=== PATIENT | female | born 1985 | race Caucasian/White ===

== ENCOUNTER 2020-12-16 18:36 | Emergency (ER) | payer MEDICAID, SELFPAY ==
[2020-12-16 19:54] VITALS: BP 138/83; PULSE 75; RESP 19; TEMP 37.3; O2SAT 99; BMI 40.3
--- NOTE | 2020-12-16 20:04 | ED.GENADULT ---
HPI - General Adult General Chief complaint: General Medical Stated complaint: Covid Symptoms Source: patient Mode of arrival: ambulatory Limitations: no limitations History of Present Illness HPI narrative: Patient presents to ED for COVID like symptoms. Patient states runny nose and cough. Patient denies any chest pain or shortness of breath. Patient denies any swelling of lower extremities, calf pain, coughing up blood, fever, or chills. Related Data Previous Rx's Medication Instructions Recorded benzonatate [Tessalon Perles] 100 mg PO TID PRN #15 cap 12/16/20 Allergies Allergy/AdvReac Type Severity Reaction Status Date / Time No Known Allergies Allergy Mild UNKNOWN Unverified 08/16/20 17:18 Review of Systems Review of Systems: Yes all other systems are reviewed and are negative Constitutional: Constitutional: Reports as per HPI and Reports no additional constitutional complaints Eyes: Eyes: Reports as per HPI and Reports no additional eye complaints ENT: Reports system reviewed and no additional complaints, except as documented and Reports as per HPI Cardiovascular: Cardiovascular: Reports as per HPI, Reports no additional cardiovascular complaints, Denies dyspnea and Denies dyspnea on exertion Respiratory: Respiratory: Reports as per HPI, Reports no additional respiratory complaints, Denies chest congestion, Reports cough, Denies pain on inspiration, Denies pain with cough, Denies dyspnea and Denies dyspnea on exertion Gastrointestinal: Gastrointestinal: Reports as per HPI and Reports no additional gastrointestinal complaints Genitourinary: Genitourinary: Reports no additional female genitourinary complaints and Reports as per HPI Musculoskeletal: Musculoskeletal: Reports no additional musculoskeletal complaints and Reports as per HPI Neurologic: Reports system reviewed and no additional complaints, except as documented and Reports as per HPI Psychiatric: Psychiatric: Reports no additional psychiatric complaints and Reports as per HPI [facility] Social History Social History Alcohol intake: never Smoked in Last 30 Days: No Use of substances other than those prescribed or required for medical reasons: No Advance Directives: No Advance Directives Information Provided: No Physical Exam Vital Signs: Vital Signs: Last Vital Signs Temp 99.1 F 12/16/20 19:54 Pulse 75 12/16/20 19:54 Resp 19 12/16/20 19:54 BP 138/83 12/16/20 19:54 Pulse Ox 99 12/16/20 19:54 Body Mass Index 40.3 Const: General: cooperative, healthy appearing, comfortable, no acute distress, well developed, alert and awake; No Physically active Orientation/consciousness: patient oriented x3 HENMT: Head: Yes normal to inspection, Yes No palpable skull fracture present, Yes normocephalic and Yes atraumatic Eyes: General: appearance normal, both eyes and all related structures Neck: Neck: Yes normal visual inspection and Yes full ROM Chest: Chest palpation & inspection: normal inspection of the chest and normal palpation of entire chest wall Resp: Effort & Inspection: normal respiratory effort and able to speak in complete sentences Auscultation: clear to auscultation bilaterally Cardio: Jugular venous distension: no JVD Heart sounds: S1 normal heart sound present and S2 normal heart sound present GI: Inspection: Yes normal to inspection and No abdominal wall ecchymosis Palpation (GI): Soft to palpation, not firm, nontender, no guarding and not rigid : General: No CVA tenderness and Yes no CVA tenderness Back/Spine/Pelvis: Back: no CVA tenderness, No CVA tenderness and No back tenderness Skin: General skin exam: no rashes or lesions noted and elasticity normal Neuro: Other: Negative for any swelling or pitting edema. General: patient oriented x3 and CN's II-XI intact bilaterally Cranial nerves: Yes CN's II-XII intact bilaterally Extrem: General: Yes normal to inspection and Yes full ROM Course Course Course Narrative: Patient will be swabbed for COVID-19 virus. Reevaluation(s) Reevaluation #1: Patient was swabbed for the COVID-19 virus. Patient does not want to wait for results and rather be called over the phone for results. Patient is not in any respiratory distress. Time: 20:41 Reevaluation #2: Patient was called and informed her COVID test came back positive. Patient also instructed on quarantine for the next 14 days and return to the ED if she has chest pain or shortness of breath. Time: 22:53 Medical Decision Making Lab Data Labs: Lab Results 12/16/20 Range/Units 20:38 Coronavirus (PCR) POSITIVE A (Negative) Influenza Type A (PCR) NEGATIVE (Negative) Influenza Type B (PCR) NEGATIVE (Negative) RSV RNA Qual (PCR) NEGATIVE (Negative) Discharge Plan Discharge Clinical Impression: Upper respiratory infection, Acute viral syndrome, COVID-19 Patient Disposition: Home, Self-Care Instructions: Upper Respiratory Infection (ED), Viral Syndrome (ED), COVID-19 (Coronavirus Disease 2019) (ED) Additional Instructions: Return to the ED immediately for any chest pain, shortness of breath, weakness, intractable fever, or any other concerning symptoms. COVID testing is pending. If symptoms worsens recommend self isolation/ ( quarantine). Please follow up with PCP. Prescriptions: New benzonatate [Tessalon Perles] 100 mg capsule 100 mg PO TID PRN (Reason: cough) Qty: 15 RF: 0 Interventions: ED Discharge Assessment Last Done: 12/16/20 20:54 Discharge Date/Time: 12/16/20 21:14
--- NOTE | 2020-12-16 20:39 | PC.NURSE ---
covid swab performed
[2020-12-16 21:29] LABS: Influenza A PCR NEGATIVE (Negative); Influenza B PCR NEGATIVE (Negative); Resp Syncy Virus RNA Qual PCR NEGATIVE (Negative); SARS COV2 PCR INHOUSE POSITIVE (Negative)
== END 2020-12-16 21:14 | disposition home or self-care (01) ==
PROVIDERS: Physician Assistant; Emergency Provider Emergency Medicine
DX: U07.1 COVID-19 (principal); J06.9 Acute upper respiratory infection, unspecified; R05 Cough; Z79.899 Other long term (current) drug therapy
CPT/HCPCS: 0241U; 36415; 99283; 99284

== ENCOUNTER 2021-03-11 11:39 | Outpatient (REF) | payer MEDICAID, SELFPAY ==
--- NOTE | ~2021-03-11 | XR_ITS ---
EXAMINATION: XR HAND/WRIST, RIGHT CLINICAL INFORMATION: Pain. COMPARISON: None TECHNIQUE: AP, oblique, and lateral views of the right hand and wrist as well as a scaphoid view of the right wrist. FINDINGS: No fracture or dislocation. Normal carpal alignment. No joint space narrowing or marginal osteophytes. No osseous erosion. No abnormal soft tissue calcification. XR/XR hand wrist RT IMPRESSION: Unremarkable examination.
== END 2021-03-11 11:40 | disposition home or self-care (01) ==
LOC: HO.XRAY 11:39
PROVIDERS: PCP Registered Nurse; Visit Provider Registered Nurse
DX: M25.531 Pain in right wrist (principal); M79.641 Pain in right hand
CPT/HCPCS: 73110; 73130

== ENCOUNTER 2021-10-02 09:27 | Outpatient (REF) | payer MEDICAID, SELFPAY ==
--- NOTE | 2021-10-02 10:00 | EMG_ITS ---
This is a 36-year-old woman with the right hand pain and numbness. PHYSICAL EXAMINATION: On examination, she is alert and oriented with normal intellectual functions. Cranial nerves II through XII are normal. No Tinel or Phalen sign. IMPRESSION: Rule out carpal tunnel syndrome. Nerve conduction EMG study: Mild to moderate carpal tunnel syndrome on the right. Normal EMG of the right C7-T1 innervated muscles. MD NNEKA Chambers/MODESTA / [id number]
== END 2021-10-02 09:28 | disposition home or self-care (01) ==
LOC: HO.NEURO 09:27
PROVIDERS: Visit Provider Registered Nurse
DX: M79.641 Pain in right hand (principal); M79.644 Pain in right finger(s)
CPT/HCPCS: 95885; 95910

== ENCOUNTER 2022-01-16 13:35 | Outpatient (REF) | payer MEDICAID, SELFPAY ==
--- NOTE | ~2022-01-16 | US_ITS ---
EXAMINATION: ULTRASOUND EXTREMITY/SOFT TISSUE NONVASCULAR LIMITED CLINICAL INFORMATION: Forehead swelling or lump COMPARISON: None TECHNIQUE: Grayscale and color imaging of the soft tissues over the forehead using a linear transducer FINDINGS: No soft tissue abnormality is seen. There is slight bony protuberance or undulated contour of the bone in this region that may account for palpable abnormality. US/US extremity nonvascular merchant IMPRESSION: No soft tissue abnormality seen by ultrasound. Palpable abnormality may correspond to bony protuberance or undulating contour of the skull.
== END 2022-01-16 13:36 | disposition home or self-care (01) ==
LOC: HO.US 13:35
PROVIDERS: Visit Provider Registered Nurse
DX: R22.0 Localized swelling, mass and lump, head (principal)
CPT/HCPCS: 76882

== ENCOUNTER 2022-02-11 14:16 | Emergency (ER) | payer MEDICAID, SELFPAY ==
--- NOTE | 2022-02-11 | ECG_ITS ---
Test Reason : CP Blood Pressure : / mmHG Vent. Rate : 070 BPM Atrial Rate : 070 BPM P-R Int : 156 ms QRS Dur : 096 ms QT Int : 380 ms P-R-T Axes : 043 039 014 degrees QTc Int : 410 ms Normal sinus rhythm Normal ECG When compared with ECG of 16-FEB-2017 16:59, No significant change was found Referred By: Generic ED Physician Electronically Signed By:ZOEY MILLER
--- NOTE | ~2022-02-11 | XR_ITS ---
EXAMINATION: XR CHEST CLINICAL INFORMATION: Chest pain COMPARISON: Previous chest x-ray most recent January 2017 TECHNIQUE: Frontal view of the chest was obtained. FINDINGS: No significant abnormality is noted involving the heart, lungs, mediastinum, bony thorax or soft tissues. XR/XR chest 1V IMPRESSION: Unremarkable examination.
[2022-02-11 14:45] VITALS: BP 152/94; PULSE 74; RESP 20; TEMP 36.5; O2SAT 100; BMI 40.3
[2022-02-11 15:01] LABS: MANUAL DIFF FLAG NO
[2022-02-11 15:02] LABS: Basophils Percent Auto 0.4 % (0-2); Eosinophils Absolute Auto 0.1 X10*3/uL (0.0-0.4); Eosinophils Percent Auto 1.1 % (0-4); Hematocrit 35.9 % (37.0-47.0); Imm Gran Abs Auto 0.04 X10*3/uL (0.00-0.03); Imm Gran Pct Auto 0.4 % (0.0-0.4); Lymphocytes Absolute Auto 3.1 X10*3/uL (1.2-4.9); Lymphocytes Percent Auto 31.2 % (20-40); Mean Corpuscular HGB Conc 30.6 g/dl (31.0-35.0); Mean Corpuscular Hemoglobin 26.1 pg (27.0-33.0); Mean Corpuscular Volume 85.1 fL (80.0-98.0); Mean Platelet Volume 10.5 fL (9.4-12.3); Monocytes Absolute Auto 0.7 X10*3/uL (0.1-1.2); Monocytes Percent Auto 6.9 % (2-11); Platelet Count 192 X10*3/uL (160-400); Red Blood Count 4.22 X10*6/uL (4.20-5.50); Red Cell Distribution Width 13.2 % (11.0-16.0)
[2022-02-11 15:17] LABS: Anion Gap 12 (12-20); Blood Urea Nitrogen 13 mg/dL (9-16); Calcium 9.1 mg/dL (8.4-10.2); Carbon Dioxide 26 mmol/L (22-29); Chloride 105 mmol/L (96-108); Estimated Glomerular Filt Rate > 60; Glucose Random 93 mg/dL (60-115); Potassium 4.1 mmol/L (3.3-5.1); Sodium 139 mmol/L (135-145)
--- NOTE | 2022-02-11 15:52 | ED_ITS ---
HPI - Chest Pain General Chief Complaint: Chest Pain Stated Complaint: ear pain/chest pain Time Seen by Provider: 02/11/22 15:31 Source: patient Mode of arrival: ambulatory Limitations: no limitations History of Present Illness HPI narrative: 36-year-old patient presents to ED for bilateral ear pain, cough, Stuffy nose, sore throat and slight chest discomfort for 4 days. . Patient denies any shortness of breath. patient denies any abdominal pain leg swelling, calf pain, coughing up blood, chest pain on inspiration, recent surgery, recent trauma or any control use. Patient states her son also has stuffy nose, and sore throat Related Data Previous Rx's Medication Instructions Recorded benzonatate 100 mg capsule 100 mg PO TID PRN #15 cap 12/16/20 (Teslon Gordon) Allergies Allergy/AdvReac Type Severity Reaction Status Date / Time No Known Allergies Allergy Mild UNKNOWN Unverified 08/16/20 17:18 Review of Systems Review of Systems: stuffy nose, slight cough, mild chest discomfort, bilateral ear pain Yes all other systems are reviewed and are negative [facility] Past Medical History Medical History (Updated 02/11/22 @ 17:37 by LUIS Gavin) Hypertension Social History Social History Alcohol intake: never Advance Directives: No Advance Directives Information Provided: No Patient : No Physical Exam Vital Signs: Vital Signs: Last Vital Signs Temp 97.6 F 02/11/22 17:56 Pulse 62 02/11/22 17:56 Resp 16 02/11/22 17:56 BP 146/89 H 02/11/22 17:56 Pulse Ox 97 02/11/22 17:56 BMI result Body Mass Index 40.3 Const: General: cooperative, healthy appearing, comfortable, no acute distress, well developed, alert, awake, Physically active and acute distress Orientation/consciousness: patient oriented x3 HENMT: Head: Yes normal to inspection, Yes No palpable skull fracture present, Yes normocephalic, Yes atraumatic and No abrasion Ears: hearing grossly normal bilaterally, external ears normal, TM's normal bilaterally, EAC's normal, mastoids normal and no periauricular adenopathy General nose exam: Normal external nose present and Normal nares present Throat: Yes posterior oropharynx normal, Yes tonsils normal and Yes uvula midline Eyes: General: appearance normal, both eyes and all related structures Neck: Neck: Yes normal visual inspection, Yes full ROM, Yes no lymphadenopathy, Yes no meningeal signs, Yes trachea midline, Yes supple, No anterior neck swelling and No tender Chest: Chest palpation & inspection: normal inspection of the chest and normal palpation of entire chest wall Resp: Effort & Inspection: normal respiratory effort and able to speak in complete sentences Auscultation: clear to auscultation bilaterally Cardio: Jugular venous distension: no JVD Heart sounds: S1 normal heart sound present and S2 normal heart sound present GI: Inspection: Yes normal to inspection and No abdominal wall ecchymosis Palpation (GI): Soft to palpation, not firm, nontender, no guarding and not rigid : General: No CVA tenderness and Yes no CVA tenderness Back/Spine/Pelvis: Back: no CVA tenderness, No CVA tenderness and No back tenderness Skin: General skin exam: no rashes or lesions noted and elasticity normal Neuro: General: patient oriented x3, gait normal, tone normal, moves all extremities and no meningeal signs Cranial nerves: Yes CN's II-XII intact bilaterally Extrem: Other: Lower extremities negative for swelling, pitting edema, or calf tenderness. General: Yes normal to inspection and Yes full ROM Psych: Appearance: grossly normal, well kempt and not disheveled Course Course Course Narrative: patient had cardiac evaluation which included troponin and EKG. COVID and influenza and strep test ordered. Reevaluation(s) Reevaluation #1: EKG negative STEMI. Troponin negative. Chest x-ray normal negative for pneumonia. SARs, COVID, influenza, strep came back negative. Patient is well- appearing. 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 Time: 18:27 MDM - Chest Pain MDM Narrative Medical decision making narrative: URI. Viral Syndrome Lab Data Result diagrams: 02/11/22 14:55 02/11/22 14:55 Labs: Lab Results 02/11/22 02/11/22 02/11/22 Range/Units 14:55 14:55 15:36 WBC 10.0 (4.8-10.8) X10*3/uL RBC 4.22 (4.20-5.50) X10*6/uL Hgb 11.0 L (12.0-16.0) g/dl Hct 35.9 L (37.0-47.0) % MCV 85.1 (80.0-98.0) fL MCH 26.1 L (27.0-33.0) pg MCHC 30.6 L (31.0-35.0) g/dl RDW 13.2 (11.0-16.0) % Plt Count 192 (160-400) X10*3/uL MPV 10.5 (9.4-12.3) fL Immature Gran % (Auto) 0.4 (0.0-0.4) % Neut % (Auto) 60.0 (45-73) % Lymph % (Auto) 31.2 (20-40) % Jackson % (Auto) 6.9 (2-11) % Eos % (Auto) 1.1 (0-4) % Baso % (Auto) 0.4 (0-2) % Lymph # (Auto) 3.1 (1.2-4.9) X10*3/uL Jackson # (Auto) 0.7 (0.1-1.2) X10*3/uL Eos # (Auto) 0.1 (0.0-0.4) X10*3/uL Baso # (Auto) 0.0 (0.0-0.2) X10*3/uL Abs Immat Gran (auto) 0.04 H (0.00-0.03) X10*3/uL Absolute Neuts (auto) 6.0 (2.0-8.3) x10*3/uL Absolute Nucleated RBC 0.000 (0.0-0.012) X10*3/uL Nucleated RBC % (auto) 0.0 (0.0-0.2) /100WBC Sodium 139 (135-145) mmol/L Potassium 4.1 (3.3-5.1) mmol/L Chloride 105 (96-108) mmol/L Carbon Dioxide 26 (22-29) mmol/L Anion Gap 12 (12-20) BUN 13 (9-16) mg/dL Creatinine 0.77 (0.5-1.4) mg/dL Estim Creat Clear Calc 129.0 Estimated GFR > 60 Random Glucose 93 (60-115) mg/dL Calcium 9.1 (8.4-10.2) mg/dL Troponin I High Sens < 3.5 (<3.5-17.0) ng/L COVID-19 (EMILY) (Negative) COVID-19 Clin Com Influenza Type A (EVA) (Negative) Influenza Type B (EVA) (Negative) Influenza A & B Note S. pyogenes GrpA EVA (Negative) 02/11/22 02/11/22 02/11/22 Range/Units 15:36 15:36 15:49 WBC (4.8-10.8) X10*3/uL RBC (4.20-5.50) X10*6/uL Hgb (12.0-16.0) g/dl Hct (37.0-47.0) % MCV (80.0-98.0) fL MCH (27.0-33.0) pg MCHC (31.0-35.0) g/dl RDW (11.0-16.0) % Plt Count (160-400) X10*3/uL MPV (9.4-12.3) fL Immature Gran % (Auto) (0.0-0.4) % Neut % (Auto) (45-73) % Lymph % (Auto) (20-40) % Jackson % (Auto) (2-11) % Eos % (Auto) (0-4) % Baso % (Auto) (0-2) % Lymph # (Auto) (1.2-4.9) X10*3/uL Jackson # (Auto) (0.1-1.2) X10*3/uL Eos # (Auto) (0.0-0.4) X10*3/uL Baso # (Auto) (0.0-0.2) X10*3/uL Abs Immat Gran (auto) (0.00-0.03) X10*3/uL Absolute Neuts (auto) (2.0-8.3) x10*3/uL Absolute Nucleated RBC (0.0-0.012) X10*3/uL Nucleated RBC % (auto) (0.0-0.2) /100WBC Sodium (135-145) mmol/L Potassium (3.3-5.1) mmol/L Chloride (96-108) mmol/L Carbon Dioxide (22-29) mmol/L Anion Gap (12-20) BUN (9-16) mg/dL Creatinine (0.5-1.4) mg/dL Estim Creat Clear Calc Estimated GFR Random Glucose (60-115) mg/dL Calcium (8.4-10.2) mg/dL Troponin I High Sens (<3.5-17.0) ng/L COVID-19 (EMILY) Negative (Negative) COVID-19 Clin Com See Note Influenza Type A (EVA) Negative (Negative) Influenza Type B (EVA) Negative (Negative) Influenza A & B Note See Note S. pyogenes GrpA EVA Negative (Negative) ECG Data ECG #1: Interpretation: normal sinus rhythm. Reticular rate 70. DC interval 156. QRS 90 6p QTC 410. Negative STEMI. Discharge Plan Discharge Clinical Impression: Acute upper respiratory infection Patient Disposition: Home, Self-Care Instructions: Upper Respiratory Infection (ED) Additional Instructions: the EKG chest x-ray, COVID swab, strep test, influenza and labs all came back normal. Return to the ED immediately for chest pain, coughing up blood, shortness of breath on and on inspiration, calf pain, leg swelling, weakness, dizziness, fever, chills, diarrhea, lethargy, or any other concerning symptoms. Please follow-up with primary care provider Prescriptions: No Action benzonatate [Tessalon Perles] 100 mg capsule 100 mg PO TID PRN (Reason: cough) Qty: 15 0RF Interventions: ED Discharge Assessment Last Done: 02/11/22 17:57 Discharge Date/Time: 02/11/22 17:57 Print Language: Chinese
[2022-02-11 16:01] LABS: COVID-19 Test Negative (Negative)
[2022-02-11 16:07] LABS: Troponin-I High Sensitivity < 3.5 ng/L (<3.5-17.0)
[2022-02-11 16:23] LABS: Influenza A Negative (Negative); Influenza B2 Negative (Negative)
[2022-02-11 16:35] LABS: Strep A Nucleic Acid Negative (Negative)
--- NOTE | 2022-02-11 17:11 | PC.NURSE ---
REPORT TAKEN FROM SIMONE JACOBO.
[2022-02-11 17:56] VITALS: BP 146/89; PULSE 62; RESP 16; TEMP 36.4; O2SAT 97
== END 2022-02-11 17:57 | disposition home or self-care (01) ==
PROVIDERS: Physician Assistant; Emergency Provider Emergency Medicine
DX: J06.9 Acute upper respiratory infection, unspecified (principal); Z20.822 Contact with and (suspected) exposure to COVID-19; H92.03 Otalgia, bilateral; I10 Essential (primary) hypertension
CPT/HCPCS: 36415; 71045; 80048; 84484; 85025; 87502; 87635; 87651; 93005; 99283; 99284

== ENCOUNTER 2022-05-01 04:54 | Emergency (ER) | payer OTHER, MEDICAID, SELFPAY ==
--- NOTE | ~2022-05-01 | XR_ITS ---
EXAMINATION: XR FOOT, RIGHT CLINICAL INFORMATION: Pain, swelling COMPARISON: None TECHNIQUE: AP, lateral, and oblique views of the right foot. FINDINGS: Osseous alignment is anatomic. No acute fracture is seen. Posterior calcaneal spur is noted. Soft tissue swelling is suspected along the dorsum of the foot. XR/XR foot RT 2V IMPRESSION: Dorsal soft tissue swelling. No acute osseous findings identified.
[2022-05-01 05:02] VITALS: BP 160/106; PULSE 65; RESP 15; TEMP 36.6; O2SAT 99; BMI 40.3
--- NOTE | 2022-05-01 05:09 | PC.NURSE ---
pt given an ice pack for comfort to rt foot
--- NOTE | 2022-05-01 05:35 | PC.NURSE ---
pt resting in bed, right foot elevated on pillow
--- NOTE | 2022-05-01 06:40 | ED.LOWEXIN ---
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) Associated symptoms: swelling and able to partially bear weight Other symptoms: none Treatments prior to arrival: cold therapy and NSAIDS Related Data Previous Rx's Medication Instructions Recorded benzonatate 100 mg capsule 100 mg PO TID PRN #15 cap 12/16/20 (Teslon Gordon) cyclobenzaprine 10 mg tablet 10 mg PO TID PRN #14 tab 05/01/22 ibuprofen 600 mg tablet 600 mg PO Q6H PRN #30 tab 05/01/22 Allergies Allergy/AdvReac Type Severity Reaction Status Date / Time No Known Allergies Allergy Mild UNKNOWN Unverified 08/16/20 17:18 Review of Systems Review of Systems: Constitutional : No Fever, No Chills ENT/Mouth : No Ear Pain, No Hoarseness, No sore throat Eyes: No Eye Pain, No Swelling, No Redness, No Foreign Body Cardiovascular : No Chest Pain, No SOB Respiratory : No Cough, No Dyspnea Gastrointestinal : No Nausea, No Vomiting, No Diarrhea, No abdominal Pain Genitourinary : No Dysuria, No Hematuria Musculoskeletal : positive joint pain, No Myalgias, pos Joint Swelling Skin : No Skin lacerations, No rash Neuro : No Weakness, No Numbness, No Loss of Consciousness, No Dizziness, No Headache PMFSH Past Medical History Attestation statement: The following information was validated with the patient. Medical History Hypertension Social History Social History (Updated 05/01/22 @ 06:55 by Marine Dill DO) Alcohol intake: never Patient Tobacco Use Status: Never used Tobacco Advance Directives: No Physical Exam Vital Signs: Vital Signs: Last Vital Signs Temp 98 F 05/01/22 05:02 Pulse 65 05/01/22 05:02 Resp 15 05/01/22 05:02 BP 160/106 H 05/01/22 05:02 Pulse Ox 99 05/01/22 05:02 BMI result Body Mass Index 40.3 Appearance: Alert. Oriented X3. No acute distress. Eyes: Pupils equal, round and reactive to light. ENT: Pharynx normal. Neck: Normal inspection. Neck supple. CVS: Pulses normal. Respiratory: No respiratory distress. Abdomen: atraumatic Skin: Skin warm and dry. Normal skin color. Normal skin turgor. Extremities: No lower extremity edema. R foot moderate swelling on dorsum with ecchymosis - can wiggle toes, distal NV intact, ttp on dorsum of foot Neuro: Oriented X 3. No motor deficit. No sensory deficit. MDM - Extremity Injury (Lower) MDM Narrative Medical decision making narrative: 36 yo female here with blunt injury to R foot - no fracture on xray, NV intact - xray negative. Will HARI wrap and provide crutches. NSAIDs and flexeril. RICE - repeat xrays if no improvement in 5 days. DC Home Discharge Plan Discharge Clinical Impression: Contusion of foot Qualifiers: Encounter type: initial encounter Laterality: right Qualified Code(s): S90.31XA - Contusion of right foot, initial encounter Patient Disposition: Home, Self-Care Instructions: Foot Contusion (ED) Additional Instructions: return to ED for any worsening symptoms or concerns rest ice elevate no fracture on xray wear hari wrap for 3 days if not better in 5 days repeat xrays with primary care doctor Prescriptions: New cyclobenzaprine 10 mg tablet 10 mg PO TID PRN (Reason: muscle spasm) Qty: 14 0RF ibuprofen 600 mg tablet 600 mg PO Q6H PRN (Reason: pain) Qty: 30 0RF No Action benzonatate [Tessalon Perles] 100 mg capsule 100 mg PO TID PRN (Reason: cough) Qty: 15 0RF Stand Alone Forms: Work/School Release
== END 2022-05-01 07:31 | disposition home or self-care (01) ==
PROVIDERS: Emergency Provider Emergency Medicine
DX: S90.31XA Contusion of right foot, initial encounter (principal); I10 Essential (primary) hypertension; W20.8XXA Other cause of strike by thrown, projected or falling object, initial encounter; Y93.9 Activity, unspecified; Y92.9 Unspecified place or not applicable; Y99.0 Civilian activity done for income or pay
CPT/HCPCS: 73620; 99283

== ENCOUNTER 2022-10-02 15:06 | Outpatient (REF) | payer MEDICAID, SELFPAY | END 2022-10-02 15:07 | disposition home or self-care (01) | LOC: HO.LNP 15:06 | PROVIDERS: Visit Provider Advanced Practice Midwife | DX: Z11.3 Encounter for screening for infections with a predominantly sexual mode of transmission (principal) | CPT/HCPCS: 86780; 86803; 87340; 87389; 87480; 87491; 87510; 87591; 87660; 99212 ==

== ENCOUNTER 2022-10-02 15:18 | Outpatient (REF) | payer MEDICAID, SELFPAY ==
[2022-10-03 03:59] LABS: CT PCR NOT DETECTED (Not Detect.); NG PCR NOT DETECTED (Not Detect.)
[2022-10-03 07:22] LABS: Syphilis Screen Nonreactive (Nonreactive)
[2022-10-03 07:24] LABS: HBsAGNum1 0.35 S/CO (0.00-0.99); HIV AB/AG Nonreactive (Nonreactive); HIV Num 1 0.13 S/CO (0.00-0.99); Hepatitis B Surface Antigen Negative (Negative); ~Hepatitis C Antibody Nonreactive (Nonreactive)
[2022-10-03 11:15] LABS: BV Int Neg Control Negative (Negative); BV Int Pos Control Positive (Positive)
== END 2022-10-02 15:19 | disposition home or self-care (01) ==
LOC: HO.LAB 15:18
PROVIDERS: Visit Provider Advanced Practice Midwife
DX: Z11.3 Encounter for screening for infections with a predominantly sexual mode of transmission (principal); Z11.4 Encounter for screening for human immunodeficiency virus [HIV]
CPT/HCPCS: 86780; 86803; 87340; 87389; 87480; 87491; 87510; 87591; 87660

== ENCOUNTER 2022-12-16 12:30 | Emergency (ER) | payer MEDICAID, SELFPAY | END 2022-12-16 15:23 | disposition left against medical advice (07) | LOC: HO.ED 14:20 | PROVIDERS: Emergency Provider Emergency Medicine | DX: M79.672 Pain in left foot (principal) ==

== ENCOUNTER 2023-01-30 07:32 | Emergency (ER) | payer MEDICAID, SELFPAY ==
--- NOTE | ~2023-01-30 | XR_ITS ---
EXAMINATION: XR CHEST CLINICAL INFORMATION: Cough COMPARISON: 02/11/2022 TECHNIQUE: Frontal view of the chest was obtained. FINDINGS: The lungs are well expanded. There is no focal consolidation, edema, or effusion. No pneumothorax. The cardiomediastinal silhouette is within normal limits. No acute osseous abnormality. XR/XR chest 1V IMPRESSION: Clear lungs.
[2023-01-30 07:35] VITALS: BP 154/105; PULSE 86; RESP 16; TEMP 36.1; O2SAT 99; BMI 40.3
[2023-01-30 07:58] LABS: COVID-19 Test Negative (Negative); IDNOW Serial# 16C4AD1C
--- NOTE | 2023-01-30 09:19 | ED.GENADULT ---
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 Patient states that over the last week she has had a cough with subsequent chest wall pain. Patient denies any dizziness, lightheadedness, abdominal pain, nausea, vomiting, fever, chills, blurry vision, double vision, loss of vision, difficulty breathing, shortness of breath, back pain, night sweats, pain with urination, increased urinary frequency, increased urinary urgency, blood in her urine or stool, syncope or a near syncopal episode, recent trauma or falls, bowel incontinence, bladder incontinence, bowel retention, bladder retention, or any other complaints at this time. Onset (ago): week(s) (1) Location: chest Radiation: non-radiation Severity: mild Severity scale (1-10): 2 Quality: dull Relieving factors: none Exacerbating factors: other (coughing) Associated symptoms: cough Treatments prior to arrival: none Related Data Home Medications Medication Instructions Recorded Confirmed acetaminophen 650 mg 650 mg PO Q8H PRN 10/02/22 10/02/22 tablet,extended release ascorbic acid (vitamin C) 500 mg 500 mg PO DAILY 10/02/22 10/02/22 capsule,extended release cholecalciferol (vitamin D3) 50 50 mcg PO DAILY 10/02/22 10/02/22 mcg (2,000 unit) capsule (Vitamin D3) citalopram 10 mg tablet 10 mg PO DAILY 10/02/22 10/02/22 losartan 50 mg tablet 50 mg PO DAILY 10/02/22 10/02/22 melatonin 5 mg tablet 5 mg PO BEDTIME 10/02/22 10/02/22 sumatriptan succinate 25 mg tablet 0 mg PO 10/02/22 10/02/22 Previous Rx's Medication Instructions Recorded benzonatate 100 mg capsule 100 mg PO TID PRN cough #15 caps 12/16/20 (Ludin Gordon) cyclobenzaprine 10 mg tablet 10 mg PO TID PRN muscle spasm #14 05/01/22 tabs ibuprofen 600 mg tablet 600 mg PO Q6H PRN pain #30 tabs 05/01/22 metronidazole 500 mg tablet 500 mg PO BID 7 days #14 tabs 10/06/22 benzonatate 100 mg capsule 100 mg PO BID PRN cough 7 days #14 01/30/23 caps Allergies Allergy/AdvReac Type Severity Reaction Status Date / Time No Known Allergies Allergy Mild UNKNOWN Verified 10/02/22 14:45 Review of Systems Constitutional: Constitutional: Reports no additional constitutional complaints, Denies chills, Denies fever(s) and Denies night sweats Eyes: Eyes: Reports no additional eye complaints, Denies blurry vision, Denies change in vision, Denies diplopia, Denies eye discharge, Denies loss of vision and Denies eye pain ENT: Denies dizziness Cardiovascular: Cardiovascular: Reports no additional cardiovascular complaints, Reports chest pain (chest wall pain secondary to coughing), Denies lightheadedness, Denies Loss of Consciousness and Denies dyspnea Respiratory: Respiratory: Reports no additional respiratory complaints, Reports cough and Denies dyspnea Gastrointestinal: Gastrointestinal: Reports no additional gastrointestinal complaints, Denies abdominal pain, Denies melena, Denies hematochezia, Denies change in bowel habits and Denies change in stool character Genitourinary: Genitourinary: Denies hematuria, Denies urinary frequency, Denies dysuria, Denies urinary incontinence, Denies urinary hesitancy and Denies urinary urgency Musculoskeletal: Musculoskeletal: Reports no additional musculoskeletal complaints, Denies numbness and Denies tingling Neurologic: Denies dizziness, Denies loss of vision, Denies numbness and Denies tingling Psychiatric: Psychiatric: Reports no additional psychiatric complaints Endocrine: Endocrine: Reports no additional endocrine complaints Hematologic/Lymphatic: Hematologic/Lymphatic: Reports no additional hematologic/lymphatic complaints Allergic/Immunologic: Allergic/Immunologic: Reports no additional allergic/immunologic complaints [facility] Past Medical History Attestation statement: The following information was validated with the patient. Source: old records reviewed and nursing notes reviewed Medical History Anemia Depression Hypertension Surgical History Hx of hysterectomy Family History Family History Maternal Aunt Breast cancer Social History Social History Alcohol intake: never Patient Tobacco Use Status: Never used Tobacco Smoked in Last 30 Days: No Use of substances other than those prescribed or required for medical reasons: No Any prior treatment program specific to substance use: No Advance Directives: No Advance Directives Information Provided: Yes Patient : No Physical Exam ED Vital Signs: Vital Signs - 24 hr 01/30/23 07:35 01/30/23 08:36 Temperature 96.9 F Pulse Rate 86 Respiratory Rate 16 Blood Pressure 154/105 H Pulse Oximetry 99 Oxygen Delivery Method Room Air Room Air BMI result Body Mass Index 40.3 Const General: cooperative, no acute distress, alert and awake Nutritional Appearance: well nourished Orientation/consciousness: patient oriented x3 Limitations: no limitations HENMT Head: Yes normal to inspection and Yes atraumatic Ears: hearing grossly normal bilaterally and external ears normal General nose exam: Normal external nose present, no nasal discharge noted and no epistaxis Face and sinus: Yes normal facial exam, No abrasion and No laceration Mouth: Normal oral and palatal mucosa present, no drooling and no muffled voice Eyes General: appearance normal, both eyes and all related structures Periorbital: periorbital findings normal Eyelids: Yes eyelids normal Conjunctivae: conjunctivae normal Pupils: Equal, round and reactive pupils present EOM: EOMs intact bilaterally Neck Neck: Yes normal visual inspection, Yes full ROM and Yes no lymphadenopathy Chest Chest palpation & inspection: normal inspection of the chest Resp Effort & Inspection: normal respiratory effort and able to speak in complete sentences Auscultation: clear to auscultation bilaterally Cardio Rate: regular rate Rhythm: regular rhythm GI Inspection: Yes normal to inspection Neuro General: patient oriented x3 and moves all extremities Cranial nerves: Yes Equal, round and reactive pupils present Cognition (Neuro): normal cognition Motor exam (neuro): 5/5 motor strength present throughout Sensory Exam: Normal double simultaneous stimulation for sensation Coordination: [id number] test normal Extrem General: Yes normal to inspection, Yes full ROM and Yes capillary refill normal Psych Appearance: grossly normal Mental Status: mental status grossly normal Affect: normal affect Attitude: cooperative Thought process: Normal thought process present Thought content: Normal thought content present Insight: Good insight present (Psych) Medications Administered Discontinued Medications Generic Name Dose Route Start Last Admin Trade Name Freq PRN Reason Stop Dose Admin Ketorolac Tromethamine 15 mg 01/30/23 09:39 01/30/23 09:47 Ketorolac Tromethamine 15 Mg/Ml Vial IM 01/30/23 09:40 15 mg ONCE ONE Administration Medical Decision Making Medical Decision Making [facility] Narrative: Patient is a 37 year old assigned female at with no reported medical history presenting to the emergency department today with a cough and subsequent chest wall pain. Patient's physical exam was unremarkable. Patient's COVID-19 test was negative. Patient's chest x-ray showed no acute process. I explained my physical exam findings as well as all test results to the patient. I answered all questions asked by the patient. Patient received IM Toradol which she stated helped her symptoms significantly. I stressed the importance of the patient taking her medication as prescribed. I stressed the importance of the patient following up with her primary care provider. I stressed the importance of the patient returning to the emergency department immediately if her symptoms were to worsen or if she were to develop any dizziness, shortness of breath, difficulty breathing, chest pain, blurry vision, loss of vision, nausea, vomiting, abdominal pain, fever, chills, back pain, or any other complaints. Patient verbalized agreement and understanding with this treatment plan and discharge. Differential Diagnosis Differential Diagnoses: The differential diagnosis associated with the presentation includes viral illness, chest wall pain Lab Data [facility] Lab Attestation statement: I reviewed the patient's lab results. Labs: Lab Results 01/30/23 Range/Units 07:39 COVID-19 (EMILY) Negative (Negative) COVID-19 Clin Com See Note Discharge Plan Discharge Clinical Impression: Viral illness Patient Disposition: Home, Self-Care Instructions: Viral Syndrome (ED) Additional Instructions: Follow up with your primary care provider. Return to the emergency department immediately if your symptoms worsen or if you develop any dizziness, shortness of breath, difficulty breathing, chest pain, blurry vision, loss of vision, nausea, vomiting, abdominal pain, fever, chills, back pain, or any other complaints. Derrek un seguimiento con okeefe proveedor de atenci?n primaria. Regrese al departamento de emergencias de inmediato si fer s?ntomas empeoran o si presenta mareos, falta de aire, dificultad para respirar, dolor de pecho, visi?n borrosa, p?rdida de la visi?n, n?useas, v?mitos, dolor abdominal, fiebre, escalofr?os, dolor de espalda o cualquier otras quejas. Prescriptions: New benzonatate 100 mg capsule 100 mg PO BID PRN (Reason: cough) 7 Days Qty: 14 0RF No Action metronidazole 500 mg tablet 500 mg PO BID 7 Days Qty: 14 0RF Rx Instructions: Take with food, Avoid alcohol and vinegar products benzonatate [Tessalon Perles] 100 mg capsule 100 mg PO TID PRN (Reason: cough) Qty: 15 0RF cyclobenzaprine 10 mg tablet 10 mg PO TID PRN (Reason: muscle spasm) Qty: 14 0RF ibuprofen 600 mg tablet 600 mg PO Q6H PRN (Reason: pain) Qty: 30 0RF losartan 50 mg tablet 50 mg PO DAILY sumatriptan succinate 25 mg tablet 0 mg PO acetaminophen 650 mg tablet extended release 650 mg PO Q8H PRN ascorbic acid (vitamin C) 500 mg capsule, extended release 500 mg PO DAILY melatonin 5 mg tablet 5 mg PO BEDTIME cholecalciferol (vitamin D3) [Vitamin D3] 50 mcg (2,000 unit) capsule 50 mcg PO DAILY citalopram 10 mg tablet 10 mg PO DAILY Referrals: [facility] [place] Family Medicine [Provider Group] (Call to establish and follow up with a primary care provider. If you already have a primary care provider, please follow up with them. Llame para establecer y hacer un seguimiento con un proveedor de atenci?n primaria. Si ya tiene un proveedor de atenci?n primaria, derrek un seguimiento con ?l.) [facility] [place] [facility] [Provider Group] (Call to establish and follow up with a primary care provider. If you already have a primary care provider, please follow up with them. Llame para establecer y hacer un seguimiento con un proveedor de atenci?n primaria. Si ya tiene un proveedor de atenci?n primaria, derrek un seguimiento con ?l.) [facility] [place] [facility] [Provider Group] (Call to establish and follow up with a primary care provider. If you already have a primary care provider, please follow up with them. Llame para establecer y hacer un seguimiento con un proveedor de atenci?n primaria. Si ya tiene un proveedor de atenci?n primaria, derrek un seguimiento con ?l.) Stand Alone Forms: Work/School Release Interventions: ED Discharge Assessment Last Done: 01/30/23 09:50 Discharge Date/Time: 01/30/23 09:50 Print Language: Nepalese
[2023-01-30] MEDS: Ketorolac Tromethamine 15 MG/ML VIAL IM (09:47)
== END 2023-01-30 09:50 | disposition home or self-care (01) ==
PROVIDERS: Emergency Provider Emergency Medicine Emergency Medical Services
DX: B34.9 Viral infection, unspecified (principal); R07.89 Other chest pain; R05.9 Cough, unspecified; Z20.822 Contact with and (suspected) exposure to COVID-19; Z20.828 Contact with and (suspected) exposure to other viral communicable diseases; Z79.899 Other long term (current) drug therapy
CPT/HCPCS: 71045; 87635; 96372; 99284; J1885

== ENCOUNTER 2023-07-12 07:21 | Emergency (ER) | payer OTHER, SELFPAY ==
--- NOTE | ~2023-07-12 | XR_ITS ---
EXAMINATION: XR FOOT, LEFT CLINICAL INFORMATION: Heel pain COMPARISON: None available. TECHNIQUE: AP, lateral, and oblique views of the left foot. FINDINGS: Bone alignment is normal. No fracture or dislocation. Joint spaces are normal. There are calcaneal spurs. There are diffuse soft tissue swelling over the medial foot/ankle. XR/XR foot LT 2V IMPRESSION: Calcaneal spurs.
[2023-07-12 07:25] VITALS: BP 140/84; PULSE 73; RESP 17; TEMP 36.6; O2SAT 98; BMI 42.0
--- NOTE | 2023-07-12 07:49 | PC.NURSE ---
Pt reported falling at home 1 night ago on her ankle. Currently swollen, tender to touch. no bruising noted, awaiting xray at this time. Pt reporting 9/10 pain.
--- NOTE | 2023-07-12 08:12 | ED_ITS ---
HPI - Extremity Injury (Lower) General Chief Complaint: Extremity Injury, Lower Stated Complaint: L foot pain Time Seen by Provider: 07/12/23 07:56 Source: patient Mode of arrival: ambulatory Limitations: language barrier (1st language is Icelandic, speaks some Kiswahili, disaster recovery specialist used) History of Present Illness HPI Narrative: 37-year-old female who presents emergency department for evaluation of left foot and heel pain she states that 1 month prior she did sprain her ankle. She states that her ankle is feeling better but since that time she has been having pain in her left heel and the bottom of her foot. She states the pain is constant, squeezing pain which is moderate to severe in intensity. Pain is worse if she puts pressure on her foot. She has been taking ibuprofen twice a day with no relief for pain. She states the pain got worse especially last night so she came to the emergency department for evaluation. She denied systemic symptoms such as fever, chills, fatigue or weakness. Related Data Home Medications Medication Instructions Recorded Confirmed acetaminophen 650 mg 650 mg PO Q8H PRN 10/02/22 10/02/22 tablet,extended release ascorbic acid (vitamin C) 500 mg 500 mg PO DAILY 10/02/22 10/02/22 capsule,extended release cholecalciferol (vitamin D3) 50 50 mcg PO DAILY 10/02/22 10/02/22 mcg (2,000 unit) capsule (Vitamin D3) citalopram 10 mg tablet 10 mg PO DAILY 10/02/22 10/02/22 losartan 50 mg tablet 50 mg PO DAILY 10/02/22 10/02/22 melatonin 5 mg tablet 5 mg PO BEDTIME 10/02/22 10/02/22 sumatriptan succinate 25 mg tablet 0 mg PO 10/02/22 10/02/22 Previous Rx's Medication Instructions Recorded benzonatate 100 mg capsule 100 mg PO TID PRN cough #15 caps 12/16/20 (Ludin Gordon) cyclobenzaprine 10 mg tablet 10 mg PO TID PRN muscle spasm #14 05/01/22 tabs ibuprofen 600 mg tablet 600 mg PO Q6H PRN pain #30 tabs 05/01/22 metronidazole 500 mg tablet 500 mg PO BID 7 days #14 tabs 10/06/22 benzonatate 100 mg capsule 100 mg PO BID PRN cough 7 days #14 01/30/23 caps prednisone 20 mg tablet 40 mg PO DAILY 7 days #14 tabs 07/12/23 Allergies Allergy/AdvReac Type Severity Reaction Status Date / Time No Known Allergies Allergy Mild UNKNOWN Verified 07/12/23 07:24 Review of Systems Review of Systems: Yes all other systems are reviewed and are negative [facility] Past Medical History [facility] Narrative: Past medical history: Hypertension, depression, anemia. Social history: She denies tobacco, alcohol and drug use. Medical History Anemia Depression Hypertension Surgical History Hx of hysterectomy Family History Family History Maternal Aunt Breast cancer Social History Social History Alcohol intake: never Patient Tobacco Use Status: Never used Tobacco Advance Directives: No Physical Exam Vital Signs: Vital Signs: Last Vital Signs Temp 98 F 07/12/23 07:25 Pulse 73 07/12/23 07:25 Resp 17 07/12/23 07:25 BP 140/84 H 07/12/23 07:25 Pulse Ox 98 07/12/23 07:25 O2 Del Method Room Air 07/12/23 07:25 BMI result Body Mass Index 42.0 Vital signs did reveal an elevated systolic blood pressure of 140 otherwise unremarkable Exam: General: Awake, alert in no distress Extremities: no deformities, moves all extremities symmetrically. The patient does have soft tissue swelling of the medial lateral malleolus on the left ankle compared to the right ankle, there is only mild tenderness palpation over the lateral malleolus but she has full range of motion of the ankle well any difficulty, there is no increased erythema or warmth. The patient does have significant tenderness with palpation of the left heel and plantar aspect of the foot which does spare the arch. There is no erythema or increased warmth Skin: no rashes, no lesion, normal color and warmth Psych: Pleasant, cooperative Medical Decision Making Medical Decision Making MDM Narrative: 37-year-old female who presents emergency department for evaluation of 1 month of pain on the bottom of her left foot, worse on the heel. She does reported ankle sprain 1 month prior and does have soft tissue swelling of the left ankle but no significant tenderness and no pain with range of motion of the ankle. Patient does have tenderness palpation of the left dorsal aspect of the heel and foot which spares the arch. Patient's presentation findings are consistent with plantar fasciitis. X-ray of the left foot did not reveal any acute fracture. Patient will be given crutches to try to relieve the pressure on her heel and plantar aspect of her left foot, she is to use these for 1 week. She was prescribed prednisone 40 mg once a day for 7 days to see if this reduces the inflammation, she was advised to take Tylenol for the pain and when she completes the prednisone course she is to take ibuprofen. She was given printed and verbal instructions on plantar fasciitis and on plantar fasciitis stretching exercise and I told her to do these exercises at least 3 times a day. Differential Diagnosis Differential Diagnoses: The differential diagnosis associated with the presentation includes Differential diagnosis includes was not limited to plantar fasciitis, fracture, musculoskeletal and Independent Interpretation I performed an independent interpretation of an: Plain X-Ray Interpretation: My independent interpretation of the patient's left foot x-rays as follows: No acute fracture Radiology Impression Discussion of test interpretation with radiology: I have reviewed the radiologist's reading. Radiologist Impression: XR foot LT 2V IMPRESSION: Calcaneal spurs. Dictated By:Shira Burris MD Chronic Conditions Patient?s care impacted by: Hypertension Discharge Plan Discharge Clinical Impression: Plantar fasciitis of left foot Patient Disposition: Home, Self-Care Instructions: Plantar Fasciitis (ED), Plantar Fasciitis Exercises (ED) Additional Instructions: Your foot x-ray was unremarkable, I do not see any broken bones. Your tenderness and symptoms are consistent with inflammation of fascia surrounding the muscle (plantar fasciitis). Take prednisone 20 mg pills, 2 pills once a day for7 days. While you are taking prednisone, do not take any NSAIDs (Motrin, Advil, ibuprofen, Aleve, naproxen). After you finish taking the prednisone you can take ibuprofen 200 mg pills, 2 pills every 6 hours as needed for pain or fever. You can also take Tylenol (acetaminophen) 500 mg pills, 2 pills every 6 hours as needed for pain or fever while your taking prednisone. Use the crutches to try to relieve the pressure on your heel, use them for 1 week. Use ice for 15 minutes on the bottom of your foot 4 to 6 times a day for the next 3-4 days to help reduce the inflammation. Do the plantar fasciitis stretching exercise 3 times a day. Follow-up with your doctor in 2 days. Please return to the emergency department if your symptoms get worse or if you develop any symptoms that are concerning to you. Prescriptions: New prednisone 20 mg tablet 40 mg PO DAILY 7 Days Qty: 14 0RF No Action metronidazole 500 mg tablet 500 mg PO BID 7 Days Qty: 14 0RF Rx Instructions: Take with food, Avoid alcohol and vinegar products benzonatate [Tessalon Perles] 100 mg capsule 100 mg PO TID PRN (Reason: cough) Qty: 15 0RF cyclobenzaprine 10 mg tablet 10 mg PO TID PRN (Reason: muscle spasm) Qty: 14 0RF ibuprofen 600 mg tablet 600 mg PO Q6H PRN (Reason: pain) Qty: 30 0RF benzonatate 100 mg capsule 100 mg PO BID PRN (Reason: cough) 7 Days Qty: 14 0RF losartan 50 mg tablet 50 mg PO DAILY sumatriptan succinate 25 mg tablet 0 mg PO acetaminophen 650 mg tablet extended release 650 mg PO Q8H PRN ascorbic acid (vitamin C) 500 mg capsule, extended release 500 mg PO DAILY melatonin 5 mg tablet 5 mg PO BEDTIME cholecalciferol (vitamin D3) [Vitamin D3] 50 mcg (2,000 unit) capsule 50 mcg PO DAILY citalopram 10 mg tablet 10 mg PO DAILY
== END 2023-07-12 09:01 | disposition home or self-care (01) ==
PROVIDERS: Emergency Provider Emergency Medicine Emergency Medical Services
DX: M72.2 Plantar fascial fibromatosis (principal)
CPT/HCPCS: 73620; 99283; 99284

== ENCOUNTER 2023-07-20 15:11 | Emergency (ER) | payer OTHER, SELFPAY ==
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
[2023-07-20 16:27] VITALS: BP 136/84; PULSE 74; RESP 16; TEMP 37; O2SAT 98; BMI 40.7
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
[2023-07-20] MEDS: Ketorolac Tromethamine 30 MG/ML VIAL IM (19:10)
[2023-07-20] MEDS: Lidocaine 4 % Patch ADH..PATCH 1 PATCH TRANSDERMA (19:17)
== END 2023-07-20 21:21 | disposition still patient (30) ==
PROVIDERS: Emergency Provider Internal Medicine
DX: S13.4XXA Sprain of ligaments of cervical spine, initial encounter (principal); M79.10 Myalgia, unspecified site; M54.2 Cervicalgia; M79.605 Pain in left leg; M79.604 Pain in right leg; I10 Essential (primary) hypertension; M54.50 Low back pain, unspecified; V43.52XA Car driver injured in collision with other type car in traffic accident, initial encounter; Y93.9 Activity, unspecified; Y92.410 Unspecified street and highway as the place of occurrence of the external cause; Y99.9 Unspecified external cause status; Z79.899 Other long term (current) drug therapy
CPT/HCPCS: 72125; 73590; 96372; 99283; 99284; J1885

== ENCOUNTER 2023-08-10 12:48 | Outpatient (REF) | payer OTHER, SELFPAY ==
--- NOTE | ~2023-08-10 | XR_ITS ---
EXAMINATION: XR FOOT, LEFT CLINICAL INFORMATION: Left heel pain. COMPARISON: Left foot radiographs dated 07/12/2023. TECHNIQUE: AP, lateral, and oblique views of the left foot. FINDINGS: Plantar and dorsal calcaneal spurs, unchanged. No acute fracture or dislocation. No concerning lytic or blastic osseous lesion. No significant joint space narrowing or marginal osteophytes. XR/XR foot LT min 3V IMPRESSION: Plantar and dorsal calcaneal spurs, unchanged.
== END 2023-08-10 12:49 | disposition home or self-care (01) ==
LOC: HO.HHCX 12:48
PROVIDERS: Visit Provider Internal Medicine
DX: M79.672 Pain in left foot (principal)
CPT/HCPCS: 73630

== ENCOUNTER 2023-09-09 14:30 | Outpatient (REF) | payer OTHER, SELFPAY ==
[2023-09-10 09:55] LABS: BV Int Neg Control Negative (Negative); BV Int Pos Control Positive (Positive)
== END 2023-09-09 14:31 | disposition home or self-care (01) ==
LOC: HO.LNP 14:30
PROVIDERS: Visit Provider Obstetrics & Gynecology
DX: N76.0 Acute vaginitis (principal)
CPT/HCPCS: 87480; 87510; 87660; 99212

== ENCOUNTER 2023-09-09 14:30 | Outpatient (AMB) | payer OTHER, SELFPAY ==
[2023-09-09 15:56] VITALS: BP 132/86; BMI 40.4
--- NOTE | 2023-09-09 15:56 | A.OFFVIS_ITS ---
Intake Vital Signs 09/09/23 15:56 Height 5 ft 7 in Weight 257 lb 15.053 oz BMI 40.4 BP 132/86 Intake Visit Reasons: vag itch Financial Advisor Trainee Required: Yes Financial Advisor Trainee Language: Fulfillment Mail Clerk Name: Mery Howard Information Interpreted: non-clinical & clinical Slate Cutter Operator: Slate Cutter Operator Present (Mery) Accompanied by: Self / Same As Patient Allergies No Known Allergies Allergy (Mild, Verified 09/09/23 16:03) UNKNOWN Is last menstrual period known: No (hysterectomy) HPI HPI Comments History of Present Illness Details The patient is presenting complaining of vulvovaginal itching associated with discharge with no odor PFSH Medical History Depression Anemia Hypertension Surgical History Hx of hysterectomy Family History Maternal Aunt Breast cancer Social History Alcohol intake: never Patient Tobacco Use Status: Never used Tobacco Female Reproductive History Menstrual Age of Menarche: 11 Review of Systems Const All systems reviewed & are unremarkable except as noted in HPI and below Card Reports as per HPI and Reports no additional complaints Resp Reports as per HPI and Reports no additional complaints GI Reports as per HPI and Reports no additional complaints Reports as per HPI Physical Exam Vital Signs: Last Vital Signs BP 132/86 09/09/23 15:56 BMI result Body Mass Index 40.4 Const General: cooperative, healthy appearing and comfortable General: Yes bladder normal to palpation External Female Exam: No lesion Speculum Exam - Vagina: normal appearance of the vagina, normal vaginal discharge and not erythematous Speculum Exam - Cervix: Cervix absent Bimanual exam- vagina & uterus: bladder normal to palpation and uterus absent Bimanual Exam- Adnexa, other: Other (No masses detected) Assessment & Plan Assessment & Plan (1) Vulvovaginitis: Code(s): N76.0 - Acute vaginitis Plan: GC/CT, Bacterial Vaginosis panel taken, Terazol 0.8% q.h.s. for 3 days was sent to the patient's pharmacy. The patient was instructed to call if symptoms don't improve in 48 hours. Medications: New terconazole 0.8% 1 appful vaginal BEDTIME 3 days 20 grams 0RF Coding Level of Care Code Est Pt Level 3 (19933) Diagnoses Vulvovaginitis N76.0
== END 2023-09-09 16:30 | disposition home or self-care (01) ==
PROVIDERS: Visit Provider Obstetrics & Gynecology
DX: N76.0 Acute vaginitis (principal)
CPT/HCPCS: 99213

== ENCOUNTER 2023-10-03 07:22 | Emergency (ER) | payer OTHER, SELFPAY ==
--- NOTE | ~2023-10-03 | CT_ITS ---
EXAMINATION: CT CERVICAL SPINE WITHOUT CONTRAST CLINICAL INFORMATION: Left side of neck pain and stiffness. COMPARISON: 07/20/2023 TECHNIQUE: Noncontrast multidetector CT imaging examination of the cervical spine is performed. Axial images and multiplanar reformatted images are reviewed. This CT examination was performed using dose optimization techniques as appropriate, variously including the following: *Automated exposure control *Adjustment of mA and/or kV according to patient size (this includes techniques or standardized protocols for targeted exams where dose is matched to indication/reason for exam; i.e. extremities or head) *Use of iterative reconstruction technique DLP: 644 mGy-cm FINDINGS: Current imaging findings are the same as those seen on 07/20/2023. The craniocervical junction is normal. The dens and atlantodental articulation are intact. The vertebra have normal density, height and alignment. The anterior and posterior elements are intact. There is lack of lordotic curvature of the cervical spine. There is osteophyte formation at the mildly degenerated right C2-C3 facet joint. The disc spaces are well-preserved. There is no CT imaging evidence of cervical spine disc herniation. No spinal canal or neural foraminal stenosis. No fracture, subluxation or prevertebral soft tissue edema. Lung apices are normal. Thyroid gland is unremarkable. Again noted is chronic opacification of some of the posterior right mastoid air cells. CT/CT cervical spine wo IV con IMPRESSION: * No acute abnormalities in the cervical spine compared to 07/20/2023. * No fracture or malalignment. No evidence of spinal canal or neural foraminal stenosis. * There is mild osteoarthritis of the right C2-C3 facet joint.
[2023-10-03 07:24] VITALS: BP 148/91; PULSE 70; RESP 18; TEMP 36.6; O2SAT 100; BMI 45.8
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
[2023-10-03] MEDS: diazePAM 2 MG TABLET PO (07:52)
[2023-10-03] MEDS: oxyCODONE HCl Immed Release 5 MG TABLET PO (07:52)
--- NOTE | 2023-10-03 07:55 | PC.NURSE ---
pt is alert and oriented, skin appropriate for ethnicity, respirations even and unlabored, pt reports lower neck pain x1 week denies injury/fall denies tingling and numbness to the extremities, pain is 10/10 and throbbing
[2023-10-03 08:35] VITALS: BP 155/98; PULSE 58; RESP 18; O2SAT 100
== END 2023-10-03 10:21 | disposition home or self-care (01) ==
PROVIDERS: Emergency Provider Emergency Medicine
DX: M43.6 Torticollis (principal); I10 Essential (primary) hypertension; Z79.899 Other long term (current) drug therapy
CPT/HCPCS: 72125; 99284

== ENCOUNTER 2023-10-08 22:23 | Emergency (ER) | payer OTHER, SELFPAY ==
--- NOTE | ~2023-10-08 | XR_ITS ---
EXAMINATION: XR CHEST CLINICAL INFORMATION: Cough. COMPARISON: Chest radiograph 01/30/2023. TECHNIQUE: 2 views of the chest were obtained. FINDINGS: Stable prominence of the cardiomediastinal silhouette. No focal airspace opacity, pleural effusion or pneumothorax. No acute osseous findings. Visualized upper abdomen is within normal limits. XR/XR chest 2V IMPRESSION: No acute cardiopulmonary findings.
[2023-10-08 22:34] VITALS: BP 148/90; PULSE 69; RESP 18; TEMP 36.4; O2SAT 97; BMI 46.2
[2023-10-08 23:11] VITALS: BP 139/87; PULSE 66; RESP 20; TEMP 36.7; O2SAT 96
[2023-10-08 23:30] LABS: Influenza A PCR NEGATIVE (Negative); Influenza B PCR NEGATIVE (Negative); Resp Syncy Virus RNA Qual PCR NEGATIVE (Negative); SARS COV2 PCR INHOUSE NEGATIVE (Negative)
--- NOTE | 2023-10-08 23:55 | ED.GENADULT ---
HPI - General Adult General Chief complaint: Upper Respiratory Symptoms Stated complaint: cough Time Seen by Provider: 10/08/23 23:18 Source: patient, RN notes reviewed and old records reviewed Mode of arrival: ambulatory Limitations: no limitations History of Present Illness HPI narrative: 38-year-old female presents for evaluation of cough. Patient complains of mild sore throat, right ear pain, cough for the last 2 days. She states her son is home with similar symptoms Denies any fevers or chills She denies any significant shortness of breath Patient does endorse some mild chest pain with coughing No other complaints or concerns at this time Related Data Home Medications Medication Instructions Recorded Confirmed acetaminophen 650 mg 650 mg PO Q8H PRN 10/02/22 10/02/22 tablet,extended release ascorbic acid (vitamin C) 500 mg 500 mg PO DAILY 10/02/22 10/02/22 capsule,extended release cholecalciferol (vitamin D3) 50 50 mcg PO DAILY 10/02/22 10/02/22 mcg (2,000 unit) capsule (Vitamin D3) citalopram 10 mg tablet 10 mg PO DAILY 10/02/22 10/02/22 losartan 50 mg tablet 50 mg PO DAILY 10/02/22 10/02/22 melatonin 5 mg tablet 5 mg PO BEDTIME 10/02/22 10/02/22 sumatriptan succinate 25 mg tablet 0 mg PO 10/02/22 10/02/22 Previous Rx's Medication Instructions Recorded benzonatate 100 mg capsule 100 mg PO TID PRN cough #15 caps 12/16/20 (Ludin Gordon) cyclobenzaprine 10 mg tablet 10 mg PO TID PRN muscle spasm #14 05/01/22 tabs ibuprofen 600 mg tablet 600 mg PO Q6H PRN pain #30 tabs 05/01/22 metronidazole 500 mg tablet 500 mg PO BID 7 days #14 tabs 10/06/22 benzonatate 100 mg capsule 100 mg PO BID PRN cough 7 days #14 01/30/23 caps prednisone 20 mg tablet 40 mg (2 x 20 mg) PO DAILY 7 days 07/12/23 #14 tabs acetaminophen 500 mg tablet 500 mg PO Q6H PRN fever or pain 07/20/23 (Tylenol Extra Strength) #14 tabs cyclobenzaprine 5 mg tablet 5 mg PO Q8H PRN pain (scale score 07/20/23 7-10) 5 days #14 tabs lidocaine 5 % topical patch 1 patch topical DAILY PRN pain #30 07/20/23 (Lidoderm) ea naproxen 500 mg tablet 500 mg PO BID PRN pain 10 days #20 07/20/23 tabs metronidazole 500 mg tablet 500 mg PO BID 7 days #14 tabs 09/10/23 cyclobenzaprine 10 mg tablet 10 mg PO TID PRN muscle spasm #20 10/03/23 tabs ibuprofen 600 mg tablet 600 mg PO Q8H PRN pain #14 tabs 10/03/23 benzonatate 200 mg capsule 200 mg PO TID PRN cough #20 caps 10/09/23 Allergies Allergy/AdvReac Type Severity Reaction Status Date / Time No Known Allergies Allergy Mild UNKNOWN Verified 10/08/23 22:34 Review of Systems Constitutional: Constitutional: Denies chills and Denies fever(s) ENT: Reports otalgia and Reports sore throat Cardiovascular: Cardiovascular: Denies dyspnea Respiratory: Respiratory: Reports cough, Reports pain with cough and Denies dyspnea Gastrointestinal: Gastrointestinal: Denies abdominal pain, Denies nausea and Denies vomiting PMFSH Past Medical History Medical History Depression Anemia Hypertension Surgical History Hx of hysterectomy Family History Family History Maternal Aunt Breast cancer Social History Social History Alcohol intake: never Patient Tobacco Use Status: Never used Tobacco Advance Directives: No Advance Directives Information Provided: No Physical Exam ED Vital Signs: Vital Signs - 24 hr 10/08/23 22:34 10/08/23 23:11 Temperature 97.5 F 98.1 F Pulse Rate 69 66 Respiratory Rate 18 20 Blood Pressure 148/90 H 139/87 Pulse Oximetry 97 96 Oxygen Delivery Method Room Air Room Air BMI result Body Mass Index 46.2 Const General: healthy appearing, comfortable, no acute distress, alert and awake Nutritional Appearance: well nourished Orientation/consciousness: patient oriented x3 HENMT Head: Yes normocephalic and Yes atraumatic Throat: Yes posterior oropharynx normal Eyes Eyelids: Yes eyelids normal Conjunctivae: conjunctivae normal Sclerae: sclerae normal Corneas: corneas normal Pupils: Equal, round and reactive pupils present EOM: EOMs intact bilaterally Neck Neck: Yes full ROM Resp Effort & Inspection: normal respiratory effort, able to speak in complete sentences, no audible wheezes and not labored Auscultation: clear to auscultation bilaterally Cardio Rate: regular rate Rhythm: regular rhythm Skin General skin exam: no rashes or lesions noted and elasticity normal Neuro General: patient oriented x3 Cranial nerves: Yes Equal, round and reactive pupils present and Yes Bilaterally intact EOM present Cognition (Neuro): normal cognition Extrem Other: Moving all extremities well without any obvious deformities Medical Decision Making Medical Decision Making [facility] Narrative: 38-year-old healthy female presents for evaluation of upper respiratory symptoms consistent with viral syndrome. Her chest x-ray shows no evidence of pneumonia, she was negative for influenza, COVID, RSV. Plan for symptomatic treatment with benzonatate. Her vital signs are within normal limits Differential Diagnosis Differential Diagnoses: The differential diagnosis associated with the presentation includes Viral syndrome Acute cough Bronchitis Pneumonia COVID-19 Influenza Lab Data Labs: Lab Results 10/08/23 Range/Units 22:48 Influenza Type A (PCR) NEGATIVE (Negative) Influenza Type B (PCR) NEGATIVE (Negative) RSV RNA Qual (PCR) NEGATIVE (Negative) SARS-CoV-2 RNA (RT-PCR) NEGATIVE (Negative) Discharge Plan Discharge Clinical Impression: Upper respiratory infection Patient Disposition: Home, Self-Care Instructions: Upper Respiratory Infection (ED) Additional Instructions: Your workup in the emergency department today was reassuring. You may use benzonatate as needed for coughing. Use Motrin/Tylenol for body aches, sore throat Your chest x-ray was clear. You do not have COVID or influenza Follow-up with your primary doctor Return for new or worsening symptoms Prescriptions: New benzonatate 200 mg capsule 200 mg PO TID PRN (Reason: cough) Qty: 20 0RF No Action metronidazole 500 mg tablet 500 mg PO BID 7 Days Qty: 14 0RF Rx Instructions: Take with food, Avoid alcohol and vinegar products metronidazole 500 mg tablet 500 mg PO BID 7 Days Qty: 14 0RF benzonatate [Tessalon Perles] 100 mg capsule 100 mg PO TID PRN (Reason: cough) Qty: 15 0RF cyclobenzaprine 10 mg tablet 10 mg PO TID PRN (Reason: muscle spasm) Qty: 14 0RF ibuprofen 600 mg tablet 600 mg PO Q6H PRN (Reason: pain) Qty: 30 0RF benzonatate 100 mg capsule 100 mg PO BID PRN (Reason: cough) 7 Days Qty: 14 0RF acetaminophen [Tylenol Extra Strength] 500 mg tablet 500 mg PO Q6H PRN (Reason: fever or pain) Qty: 14 0RF lidocaine [Lidoderm] 5 % adhesive patch,medicated 1 patch topical DAILY MDD remove after 12 hours PRN (Reason: pain) Qty: 30 0RF Rx Instructions: leave on most painful area for up to 12 hrs naproxen 500 mg tablet 500 mg PO BID PRN (Reason: pain) 10 Days Qty: 20 0RF cyclobenzaprine 5 mg tablet 5 mg PO Q8H PRN (Reason: pain (scale score 7-10)) 5 Days Qty: 14 0RF cyclobenzaprine 10 mg tablet 10 mg PO TID PRN (Reason: muscle spasm) Qty: 20 0RF ibuprofen 600 mg tablet 600 mg PO Q8H PRN (Reason: pain) Qty: 14 0RF prednisone 20 mg tablet 40 mg PO DAILY 7 Days Qty: 14 0RF losartan 50 mg tablet 50 mg PO DAILY sumatriptan succinate 25 mg tablet 0 mg PO acetaminophen 650 mg tablet extended release 650 mg PO Q8H PRN ascorbic acid (vitamin C) 500 mg capsule, extended release 500 mg PO DAILY melatonin 5 mg tablet 5 mg PO BEDTIME cholecalciferol (vitamin D3) [Vitamin D3] 50 mcg (2,000 unit) capsule 50 mcg PO DAILY citalopram 10 mg tablet 10 mg PO DAILY
== END 2023-10-09 00:45 | disposition home or self-care (01) ==
PROVIDERS: Emergency Provider Emergency Medicine
DX: J06.9 Acute upper respiratory infection, unspecified (principal); R05.9 Cough, unspecified; J02.9 Acute pharyngitis, unspecified; H92.01 Otalgia, right ear; Z20.822 Contact with and (suspected) exposure to COVID-19; Z20.828 Contact with and (suspected) exposure to other viral communicable diseases; I10 Essential (primary) hypertension; Z79.899 Other long term (current) drug therapy
CPT/HCPCS: 0241U; 71046; 99283

== ENCOUNTER 2023-12-07 06:08 | Emergency (ER) | payer OTHER, SELFPAY ==
[2023-12-07 06:33] VITALS: BP 126/84; PULSE 66; RESP 18; TEMP 36.3; O2SAT 98; BMI 42.0
--- NOTE | 2023-12-07 07:39 | ED.URI ---
HPI - URI/Sore Throat General Chief Complaint: Upper Respiratory Symptoms Stated Complaint: headache, cough Time Seen by Provider: 12/07/23 07:31 Source: patient Mode of arrival: ambulatory Limitations: no limitations History of Present Illness HPI Narrative: 38 years old presented to the emergency department with cough congestion, denies any fever chills. Symptoms started 3 days ago MD elicited complaint: cough Onset (ago): day(s) (3) Severity: mild Description of mucous: clear Able to tolerate fluids by mouth: Yes Exacerbating factors: nothing Relieving factors: nothing Related Data Home Medications Medication Instructions Recorded Confirmed acetaminophen 650 mg 650 mg PO Q8H PRN 10/02/22 10/02/22 tablet,extended release ascorbic acid (vitamin C) 500 mg 500 mg PO DAILY 10/02/22 10/02/22 capsule,extended release cholecalciferol (vitamin D3) 50 50 mcg PO DAILY 10/02/22 10/02/22 mcg (2,000 unit) capsule (Vitamin D3) citalopram 10 mg tablet 10 mg PO DAILY 10/02/22 10/02/22 losartan 50 mg tablet 50 mg PO DAILY 10/02/22 10/02/22 melatonin 5 mg tablet 5 mg PO BEDTIME 10/02/22 10/02/22 sumatriptan succinate 25 mg tablet 0 mg PO 10/02/22 10/02/22 Previous Rx's Medication Instructions Recorded benzonatate 100 mg capsule 100 mg PO TID PRN cough #15 caps 12/16/20 (Ludin Gordon) cyclobenzaprine 10 mg tablet 10 mg PO TID PRN muscle spasm #14 05/01/22 tabs ibuprofen 600 mg tablet 600 mg PO Q6H PRN pain #30 tabs 05/01/22 metronidazole 500 mg tablet 500 mg PO BID 7 days #14 tabs 10/06/22 benzonatate 100 mg capsule 100 mg PO BID PRN cough 7 days #14 01/30/23 caps prednisone 20 mg tablet 40 mg (2 x 20 mg) PO DAILY 7 days 07/12/23 #14 tabs acetaminophen 500 mg tablet 500 mg PO Q6H PRN fever or pain 07/20/23 (Tylenol Extra Strength) #14 tabs cyclobenzaprine 5 mg tablet 5 mg PO Q8H PRN pain (scale score 07/20/23 7-10) 5 days #14 tabs lidocaine 5 % topical patch 1 patch topical DAILY PRN pain #30 07/20/23 (Lidoderm) ea naproxen 500 mg tablet 500 mg PO BID PRN pain 10 days #20 07/20/23 tabs metronidazole 500 mg tablet 500 mg PO BID 7 days #14 tabs 09/10/23 cyclobenzaprine 10 mg tablet 10 mg PO TID PRN muscle spasm #20 10/03/23 tabs ibuprofen 600 mg tablet 600 mg PO Q8H PRN pain #14 tabs 10/03/23 benzonatate 200 mg capsule 200 mg PO TID PRN cough #20 caps 10/09/23 Allergies Allergy/AdvReac Type Severity Reaction Status Date / Time No Known Allergies Allergy Mild UNKNOWN Verified 12/07/23 06:33 Review of Systems ENT: Reports system reviewed and no additional complaints, except as documented Neurologic: Reports system reviewed and no additional complaints, except as documented PMFSH Past Medical History Attestation statement: The following information was validated with the patient. Source: unable to obtain Onset Date is defined in the Problem List Problems that require an onset date and time if occurred within 24 hrs of arrival to the ED Aortic Dissection and Rupture; Neurologic impairment; Cardiopulmonary Arrest; Endotracheal Intubation; Insertion or Replacement of Mechanical Circulatory Assist Device Medical History Depression Anemia Hypertension Surgical History Hx of hysterectomy Family History Family History Maternal Aunt Breast cancer Social History Social History Alcohol intake: never Patient Tobacco Use Status: Never used Tobacco Advance Directives: No Physical Exam Vital Signs: Vital Signs: Last Vital Signs Temp 97.4 F 12/07/23 06:33 Pulse 66 12/07/23 06:33 Resp 18 12/07/23 06:33 BP 126/84 12/07/23 06:33 Pulse Ox 98 12/07/23 06:33 O2 Del Method Room Air 12/07/23 06:33 BMI result Body Mass Index 42.0 Const: General: cooperative Nutritional Appearance: well nourished Orientation/consciousness: patient oriented x3 Limitations: no limitations HEENT: Head: Yes normal to inspection Ears: hearing grossly normal bilaterally General nose exam: Normal external nose present Face and sinus: Yes normal facial exam Mouth: Normal oral and palatal mucosa present Throat: Yes posterior oropharynx normal Neck: Neck: Yes normal visual inspection, Yes full ROM and Yes no lymphadenopathy Chest: Chest palpation & inspection: normal inspection of the chest Resp: Effort & Inspection: normal respiratory effort and able to speak in complete sentences Auscultation: clear to auscultation bilaterally Cardio: Jugular venous distension: no JVD Palpation: normal PMI Rate: regular rate Rhythm: regular rhythm GI: Inspection: Yes normal to inspection Palpation (GI): Soft to palpation, not firm and nontender Percussion: Yes normal to percussion Auscultation: normal bowel sounds : General: Yes no CVA tenderness Back/Spine/Pelvis: Back: no CVA tenderness Neuro: General: patient oriented x3 Cranial nerves: Yes CN's II-XII intact bilaterally Extrem: General: Yes normal to inspection Medical Decision Making Medical Decision Making [facility] Narrative: Patient presented with URI symptoms will test for flu/COVID Differential Diagnosis Differential Diagnoses: The differential diagnosis associated with the presentation includes Influenza/COVID/RSV/viral in Admission/Observation Consideration of admission/observation: Escalation of care including admission/observation considered Lab Data [facility] Lab Attestation statement: I reviewed the patient's lab results. Labs: Lab Results 12/07/23 Range/Units 06:37 Influenza Type A (PCR) POSITIVE A (Negative) Influenza Type B (PCR) NEGATIVE (Negative) RSV RNA Qual (PCR) NEGATIVE (Negative) SARS-CoV-2 RNA (RT-PCR) NEGATIVE (Negative) Discharge Plan Discharge Clinical Impression: Influenza A Patient Disposition: Home, Self-Care Instructions: Influenza (DC) Prescriptions: No Action metronidazole 500 mg tablet 500 mg PO BID 7 Days Qty: 14 0RF Rx Instructions: Take with food, Avoid alcohol and vinegar products metronidazole 500 mg tablet 500 mg PO BID 7 Days Qty: 14 0RF benzonatate [Tessalon Perles] 100 mg capsule 100 mg PO TID PRN (Reason: cough) Qty: 15 0RF cyclobenzaprine 10 mg tablet 10 mg PO TID PRN (Reason: muscle spasm) Qty: 14 0RF ibuprofen 600 mg tablet 600 mg PO Q6H PRN (Reason: pain) Qty: 30 0RF benzonatate 100 mg capsule 100 mg PO BID PRN (Reason: cough) 7 Days Qty: 14 0RF acetaminophen [Tylenol Extra Strength] 500 mg tablet 500 mg PO Q6H PRN (Reason: fever or pain) Qty: 14 0RF lidocaine [Lidoderm] 5 % adhesive patch,medicated 1 patch topical DAILY MDD remove after 12 hours PRN (Reason: pain) Qty: 30 0RF Rx Instructions: leave on most painful area for up to 12 hrs naproxen 500 mg tablet 500 mg PO BID PRN (Reason: pain) 10 Days Qty: 20 0RF cyclobenzaprine 5 mg tablet 5 mg PO Q8H PRN (Reason: pain (scale score 7-10)) 5 Days Qty: 14 0RF cyclobenzaprine 10 mg tablet 10 mg PO TID PRN (Reason: muscle spasm) Qty: 20 0RF ibuprofen 600 mg tablet 600 mg PO Q8H PRN (Reason: pain) Qty: 14 0RF benzonatate 200 mg capsule 200 mg PO TID PRN (Reason: cough) Qty: 20 0RF prednisone 20 mg tablet 40 mg PO DAILY 7 Days Qty: 14 0RF losartan 50 mg tablet 50 mg PO DAILY sumatriptan succinate 25 mg tablet 0 mg PO acetaminophen 650 mg tablet extended release 650 mg PO Q8H PRN ascorbic acid (vitamin C) 500 mg capsule, extended release 500 mg PO DAILY melatonin 5 mg tablet 5 mg PO BEDTIME cholecalciferol (vitamin D3) [Vitamin D3] 50 mcg (2,000 unit) capsule 50 mcg PO DAILY citalopram 10 mg tablet 10 mg PO DAILY Referrals: Physician,Unknown J [Primary Care Provider] - 3 days Stand Alone Forms: Work/School Release Interventions: ED Discharge Assessment Last Done: 12/07/23 08:27 Discharge Date/Time: 12/07/23 08:27
== END 2023-12-07 08:27 | disposition home or self-care (01) ==
PROVIDERS: Emergency Provider Emergency Medicine
DX: J10.1 Influenza due to other identified influenza virus with other respiratory manifestations (principal); R51.9 Headache, unspecified; R05.9 Cough, unspecified; Z20.822 Contact with and (suspected) exposure to COVID-19; Z20.828 Contact with and (suspected) exposure to other viral communicable diseases
CPT/HCPCS: 0241U; 99282; 99283

== ENCOUNTER 2024-03-01 11:44 | Outpatient (REF) | payer OTHER, SELFPAY ==
[2024-03-01 19:27] LABS: Alanine Aminotransferase 21 U/L (0-31); Albumin Level 4.2 g/dL (3.5-5.0); Alkaline Phosphatase 92 U/L (39-117); Anion Gap 11 (12-20); Aspartate Amino Transferase 18 U/L (5-31); Bilirubin Total 0.2 mg/dL (0.0-1.0); Blood Urea Nitrogen 14 mg/dL (9-16); Carbon Dioxide 28 mmol/L (22-29); Chloride 105 mmol/L (96-108); Cholesterol 201 mg/dL (<200); Estimated Glomerular Filt Rate > 60; Glucose Random 85 mg/dL (60-115); HDL Cholesterol 62 mg/dL (>40); LDL Cholesterol Calculated 96 mg/dL (<100); Sodium 140 mmol/L (135-145); Total Protein 7.7 g/dL (6.5-8.0); Triglycerides 215 mg/dL (<150)
[2024-03-01 19:43] LABS: Vitamin D 25-OH Total 40.3 ng/mL (>30)
[2024-03-02 05:42] LABS: Estimated Average Glucose 105 mg/dL; Hemoglobin A1c % 5.3 % (<6.0)
== END 2024-03-01 11:45 | disposition home or self-care (01) ==
LOC: HO.HHCL 11:44
PROVIDERS: Visit Provider Registered Nurse
DX: I10 Essential (primary) hypertension (principal); E66.01 Morbid (severe) obesity due to excess calories; Z68.42 Body mass index [BMI] 45.0-49.9, adult
CPT/HCPCS: 36415; 80053; 80061; 82306; 83036

== ENCOUNTER 2025-01-29 01:41 | Emergency (ER) | payer OTHER, SELFPAY ==
--- NOTE | ~2025-01-29 | CT_ITS ---
CLINICAL HISTORY: Left lower quadrant pain? Diverticular CT abdomen and pelvis without contrast Comparison: CT - ABD PELVIS WO CONT [id number] - 03/08/17 21:41 EDT Findings: Diffuse esophageal mural thickening, nonspecific. The gallbladder and solid organs are within normal limits. No renal stones. Colonic diverticulosis with mural thickening, peridiverticular inflammatory changes and fluid stranding noted in the sigmoid colon, consistent with diverticulitis. No evidence of free air or peridiverticular collections. No bowel obstruction. Fat containing umbilical hernia. Large rectal stool burden. Normal appendix. Distended bladder. The bones are intact. IMPRESSION: 1. Uncomplicated sigmoid diverticulitis. 2. Distended bladder. This document has been electronically signed by: Abimael Ascencio MD on 01/29/2025 04:12:59
[2025-01-29 01:50] VITALS: BP 123/64; PULSE 78; RESP 16; TEMP 36.3; O2SAT 100; BMI 40.3
[2025-01-29 02:09] LABS: Appearance Urine Clear; Color Urine Yellow; Glucose Urine UA Negative (Negative); Leukocyte Esterase Urine Negative (Negative); Nitrite Urine Negative (Negative); UPreg QC Valid YES; Urine Blood Negative (Negative); Urine Ketones Negative (Negative); Urine Pregnancy NEGATIVE (NEGATIVE); Urine Protein Negative (Neg-Trace)
--- OUTSIDE RECORDS SUMMARY | 2025-01-29 02:09 | XMS_ITS | Encounter Summary ---
Author Organization [employer] Address [address] [place] [address] Care Team Providers Care Pharmacist Aide Name Role Phone Edelmira [facility] Primary Care Provider [phone] Reason for Visit * Reason Comments Routine Cleaning Dental Exam Encounter Details Date Type Department Care Team ([facility] st Contact Info) Description 01/03/2025 1:00 PM EST Office Visit [facility] [address] [place] [address] Janine Parker Dental plaque (Primary Dx); Dental calculus; Encounter for dental examination Social History Tobacco Use Types Packs/Day Years Used Date Smoking Tobacco: Never Passive Smoke Exposure: Never Smokeless Tobacco: Never Alcohol Use Standard Drinks/Week Comments Never 0 (1 standard drink = 0.6 oz pur e alcohol) PHQ-2 Answer Date Recorded Patient Health Questionnaire-2 Score 0 08/10/2023 Housing Stability Answer Date Recorded What is your housing situation today? I have winnie garcia 01/02/[address] you li ve. Do you have problems with any of the following? None of the above 01/02/2025 Food Insecurity Answer Date Recorded Within the past 12 months, y ou worried that your food would run out before you got money to buy more: Never True 01/02/2025 Within the past 12 months,th e food you bought just didn't last and you didn't have enough money to get more: Never True 01/2025 Transportation Answer Date Recorded In the past 12 months, has l ack of transportation kept you from medical appts, meetings, work or from getting things needed for daily living? No 01/02/2025 Utilities Answer Date Recorded In the past 12 months, has t he electric, gas, oil or water [employer] threatened to shut off services in your home? No 01/02/2025 Depression Answer Date Recorded Patient Health Questionnaire-2 Score 0 01/02/2025 Internet Access Answer Date Recorded Internet Access Q1 No 01/02/2025 Internet Access Q2 Not on file 01/02/2025 Comments Unknown Sex and Gender Information Value Date Recorded Sex Assigned at Female 09/29/2022 10:18 AM EDT Legal Sex Female 10:18 AM EDT Gender Identity Female 09/29/2022 10:18 AM EDT Sexual Orientation Straight 09/29/2022 10 :18 AM EDT documented as of this encounter Last Filed Vital Signs Vital Sign Reading Time Taken Comments Blood Pressure 128/84 01/03/2025 1:01 PM EST Pulse - - Temperature - - Respiratory Rate - - Oxygen Saturation - - Inhaled Oxygen Concentration - - Weight - - Height - - Body Mass Index - - documented in this encounter Progress Notes * Janine Parker - 01/03/2025 1:00 PM EST Patient ID: Ivis Bowen is a 39 y.o. female. Time Out: Timeout Date: 01/03/25, Timeout Time: 1302 (prophy and exam adult dental) Location: [facility] Tooth: Maxilla and Mandible Procedure: Exam and Prophylaxis Verified the above with patient, chemist assistant, and provider. Confirmed via patient's chart, intraorally and by radiographs. Rail Doweling Machine Operator: not applicable Medical Hx: Vitals: Blood pressure 128/84. Medications, Med Hx reviewed with patient and updated in chart. Treatment Provided Dental procedures in this visit D1110 - PROPHYLAXIS - ADULT (Completed) Service provider: Janine Parker Billjo[place] provider: Ibeth Flores DDS D9450 - ADJUNCTIVE GENERAL SERVICES - PROFESSIONAL VISITS - CASE PRESENTATION, SUBSEQUENT TO DETAILED AND EXTENSIVE TREATMENT PLANNING (Completed) Service provider: Janine Parker Billjoao provider: Ibeth Flores DDS D1330 - ORAL HYGIENE INSTRUCTIONS (Completed) Service provider: Janine Parker Billjoao provider: Ibeth Flores DDS Instruments Used: Ultrasonic Scalers, Hand Scalers, and Prophy angle Fluoride: N/A Oral Cancer Screening: No lesions Head/Neck Exam: No Lesions Calculus: Moderate and Localized Plaque: Moderate and Generalized Stain: Light and Generalized Bleeding: Light and Generalized Gingiva: Perio Charting Completed and Erythematous OH: Fair Perio Chart: Completed generalized 2-4 mm pocketing with localized [address] Quezada Oral hygiene instructions provided to patient including brushing technique and flossing. Recommendations: Sweet Water two times daily, modified olson technique, Floss daily, Electric toothbrush, Soft bristle toothbrush, Sweet Water Tongue Recall Frequency: 6 mo NV: 6mrc, exam Hygienist: Janine Parker RDH and [facility] Dental Hygiene Student Amairani Cosigned by Ibeth Flores DDS at 01/03/2025 2:10 PM EST Associated attestation - Ibeth lFores DDS - 01/03/2025 2:10 PM EST I have reviewed the documentation and dental procedures made by the rendering provider, Janine Parker RDH , and approve their chart entries for this visit. Ibeth Flores DDS * Ibeth Flores DDS - 01/03/2025 1:00 PM EST Dental procedures in this visit D1110 - PROPHYLAXIS - ADULT (Completed) Service provider: Janine Parker Billing provider: Ibeth Flores DDS D9450 - ADJUNCTIVE GENERAL SERVICES - PROFESSIONAL VISITS - CASE PRESENTATION, SUBSEQUENT TO DETAILED AND EXTENSIVE TREATMENT PLANNING (Completed) Service provider: Janine Parker Billing provider: Ibeth Flores DDS D1330 - ORAL HYGIENE INSTRUCTIONS (Completed) Service provider: Janine Parker Billing provider: Ibeth Flores DDS D0120 - PERIODIC ORAL EVALUATION - ESTABLISHED PATIENT (Completed) Service provider: Ibeth Flores DDS Billing provider: Ibeth Flores DDS D0180 - COMPREHENSIVE PERIODONTAL EVALUATION - NEW OR ESTABLISHED PATIENT (Completed) Service provider: Ibeth Flores DDS Billing provider: Ibeth Flores DDS Patient ID: Ivis Bowen is a 39 y.o. female. Time Out: Timeout Date: 01/03/25, Timeout Time: 1302 (prophy and exam adult dental) Location: [facility] Tooth: Maxilla and Mandible Procedure: Exam, X-rays, and Prophylaxis Verified the above with patient, chemist assistant, and provider. Confirmed via patient's chart, intraorally and by radiographs. Rail Doweling Machine Operator: not applicable Chief Complaint Patient presents with Routine Cleaning Dental Exam Medical Hx: Vitals: Blood pressure 128/84. History reviewed. No pertinent past medical history. Medications: Outpatient Encounter Medications as of 01/03/2025 Medication Sig Dispense Refill acetaminophen (Tylenol Extra Strength) 500 MG tablet Take 2 tablets (1,000 mg) by mouth every 6 (six) hours if needed for mild pain. 90 tablet 1 losartan (Cozaar) 50 MG tablet TAKE 1 TABLET BY MOUTH EVERY DAY 90 tablet 1 albuterol 108 (90 Base) MCG/ACT inhaler Inhale 2 puffs every 4 (four) hours if needed for wheezing or shortness of breath. (Patient not taking: Reported on 01/03/2025) 18 g 1 ascorbid acid ER (Vitamin C) 500 MG ER capsule TAKE 1 CAPSULE BY MOUTH EVERY DAY WITH IRON TABLET (Patient not taking: Reported on 01/03/2025) 90 capsule 3 cetirizine (ZyrTEC) 10 MG tablet Take 1 tablet (10 mg) by mouth Once per day. (Patient not taking: Reported on 01/03/2025) 90 tablet 3 cyclobenzaprine (Flexeril) 10 MG tablet Take 1 tablet (10 mg) by mouth if needed in the morning, atnoon, and at bedtime for muscle spasms for up to 10 days. 20 tablet 0 D3 Super Strength 50 MCG (2000 UT) capsule TAKE 1 CAPSULE BY MOUTH EVERY DAY (Patient not taking: Reported on 08/10/2023) 90 capsule 3 Diclofenac Sodium 1 % gel Apply topically to affected areas twice daily 150 g 1 FeroSul 325 (65 Fe) MG tablet TAKE 1 TABLET BY MOUTH EVERY DAY (Patient not taking: Reported on 08/10/2023) 90 tablet 3 hydroCHLOROthiazide 12.5 MG tablet Take 1 tablet (12.5 mg) by mouth Once per day. (Patient not taking: Reported on 01/03/2025) 30 tablet 11 ibuprofen 400 MG tablet Take 1 tablet (400 mg) by mouth every 6 (six) hours if needed for moderate pain or fever for up to 30 doses. (Patient not taking: Reported on 01/03/2025) 30 tablet 0 ibuprofen 600 MG tablet Take 1 tablet by mouth every 6 (six) hours. (Patient not taking: Reported on 01/03/2025) melatonin 5 MG tablet Take one tablet by oral route 30 min before sleeping (Patient not taking: Reported on 01/03/2025) omeprazole (PriLOSEC) [address] capsule TAKE 1 CAPSULE BY MOUTH TWICE DAILY 1 HOUR BEFORE BREAKFAST AND BEFORE SUPPER (Patient not taking: Reported on 01/03/2025) 180 capsule 1 ondansetron ODT (Zofran-ODT) 4 MG disintegrating tablet (Patient not taking: Reported on 01/03/2025) oral electrolytes replacement (Pedialyte) solution Take 120 mL by mouth every 2 (two) hours if needed (dehyrdation). (Patient not taking: Reported on 01/03/2025) 1000 mL 0 Spacer/Aero-Holding Chambers ([facility]) misc USE DIRECTED (Patient not taking: Reported on 01/03/2025) 1 each 0 SUMAtriptan (Imitrex) 25 MG tablet May repeat dose once in 2 hours if no relief. Do not exceed 2 doses in 24 hours. (Patient not taking: Reported on 01/03/2025) 9 tablet 4 Tirzepatide-Weight Management (Zepbound) 2.5 MG/0.5ML solution auto-injector Inject 0.5 mL (2.5 mg)under the skin 1 (one) time per week. (Patient not taking: Reported on 01/03/2025) 2 mL 1 [DISCONTINUED] fluticasone (Flonase) 50 MCG/ACT nasal spray Administer 2 sprays into each nostril Once per day. 16 g 3 [DISCONTINUED] guaiFENesin (Humibid 3) 400 MG tablet Take 1 tablet (400 mg) by mouth if needed in the morning, at noon, and at bedtime for cough or congestion. 30 tablet 0 [DISCONTINUED] guaiFENesin-codeine (Robitussin-AC) 100-10 MG/5ML syrup Take 5 mL by mouth every 6 (six) hours if needed for cough. 100 mL 0 No facility-administered encounter medications on file as of 01/03/2025. Objective HPI Soft Tissue Exam No findings documented this visit Head and Neck Exam: Lymph Nodes, Lips, Palate, Buccal Mucosa, Floor of Mouth, Tongue, Tonsils, Alveolar Ridges, Oropharynx, Salivary Ducts, and Vestibules no significant findings observed OCS: negative Dental Exam Radiographic Interpretation: Associated radiographs for today's visit were reviewed and finding(s) were discussed with the patient. Findings include: plaque, calculus, missing tooth UR side. Hard Tissue Exam: No decay Perio Dx: improving Perio Reference tooth chart for additional findings. Oral Cancer Risk: Low Risk Oral Hygiene Instructions: Sweet Water two times daily, modified olson technique, Floss daily, Soft bristle toothbrush, Sweet Water Tongue Caries Risk Assessment: Low- no risk factor Assessment/Plan 6 mo periodic exam PA sent to insurance for RPD UR side Patient tolerated procedure well, all questions answered and expressed understanding. Dismissed in good condition. NV: 6 mo periodic exam PA sent to insurance for RPD UR side Plasticator: Janine Parker Dentist: Ibeth Flores DDS documented in this encounter Plan of Treatment Scheduled Orders Name Type Priority Associated Diagnoses Orde r Schedule PROPHYLAXIS - ADULT Dental Routine 1 Occ urrences starting 01/03/2025 PERIODIC ORAL EVALUATION - ESTABLISHED PATIENT Dental Routine 1 Occurren sandra starting 01/03/2025 BITEWINGS - 4 RADIOGRAPHIC IMAGES Dental Routine 1 Occurrence s starting 01/03/2025 INTRAORAL - PERIAPICAL FIRST RADIOGRAPHIC IMAGE Dental Routine 1 Occur rences starting 01/03/2025 INTRAORAL - PERIAPICAL EACH ADDITIONAL RADIOGRAPHIC IMAGE Dental Routine 1 Occurrences starting 01/03/2025 INTRAORAL - PERIAPICAL EACH ADDITIONAL RADIOGRAPHIC IMAGE Dental Routine 1 Occurrences starting 01/03/2025 documented as of this encounter Procedures Procedure Name Priority Date/Time Associated Diagnosis Comments PROPHYLAXIS - ADULT Routine 01/03/2025 1 :00 PM EST Dental plaque Dental calculus PERIODIC ORAL EVALUATION - ESTABLISHED PATIENT Routine 01/03/2025 1:00 PM EST Dental plaque Dental calculus Encounter for dental examination ORAL HYGIENE INSTRUCTIONS Routine 2024 1:00 PM EST Dental plaque Dental calculus COMPREHENSIVE PERIODONTAL EVALUATION - NEW OR ESTABLISHED PATIENT Routine 01/03/2025 1:00 PM EST Dental plaque Dental calculus Encounter for dental examination CASE PRESENTATION, DETAILED AND EXTENSIVE TREATMENT PLANNING Routine 01/03/2025 1:00 PM EST documented in this encounter Visit Diagnoses Diagnosis Dental plaque- Primary Accretions on teeth Dental calculus Accretions on teeth Encounter for dental examination documented in this encounter Care Teams Pharmacist Aide Relationship Specialty Start Date End Date Jenni Hickey FNP [address] [place] [id number] PCP - General Family Medicine 08/28/21 documented as of this encounter
--- OUTSIDE RECORDS SUMMARY | 2025-01-29 02:09 | XMS_ITS | Encounter Summary ---
Author Organization [employer] [facility] Address [address] [place] [address] [address] [place] [address] Care Team Providers Care Leasing Associate Name Role Phone Jenni Hickey [facility] Primary Care Provider [phone] Encounter Details Date Type Department Care Team (Late st Contact Info) Description 10/30/2022 Orders Only [facility] [address] [place] [address] Jenni Hickey FNP [address] [place] [address] Witnessed episode of apnea (Primary Dx) Social History Tobacco Use Types Packs/Day Years Used Date Smoking Tobacco: Never Assessed Comments Unknown Sex and Gender Information Value Date Recorded Sex Assigned at Female 09/29/2022 10:18 AM EDT Legal Sex Female 10:18 AM EDT Gender Identity Female 09/29/2022 10:18 AM EDT Sexual Orientation Straight 09/29/2022 10 :18 AM EDT documented as of this encounter Plan of Treatment Not on file documented as of this encounter Visit Diagnoses Diagnosis Witnessed episode of apnea- Primary documented in this encounter Care Teams Leasing Associate Relationship Specialty Start Date End Date Jenni Hickey FNP [address] [place] [address] PCP - General Family Medicine 08/28/21 documented as of this encounter
--- OUTSIDE RECORDS SUMMARY | 2025-01-29 02:09 | XMS_ITS | Encounter Summary ---
Author Organization [employer] Address [address] [facility] [address] [place] [address] Care Team Providers Care Maintenance Mechanic Helper Name Role Phone Edelmira [facility] Primary Care Provider [phone] Encounter Details Date Type Department Care Team (Latest Contact Info) Description 01/02/2025 Travel Social History Tobacco Use Types Packs/Day Years [...] t he electric, gas, oil or water company threatened to shut off services in your [...] documented as of this encounter Visit Diagnoses Not on filedocumented in this encounter Care Teams Maintenance Mechanic Helper Relationship Specialty Start Date End Date Jenni Hickey FNP [address] [place] [id number] PCP - General Family Medicine 08/28/21 documented as of this encounter
--- OUTSIDE RECORDS SUMMARY | 2025-01-29 02:09 | XMS_ITS | Clinical Summary ---
Author Organization [employer] Address [address] [facility] 7t [place] [address] Care Team Providers Care Account Support Specialist Name Role Phone Edelmira [facility] Primary Care Provider [phone] Allergies No known active allergies Medications losartan (Cozaar) 50 MG tabletIndications: Essential hypertension TAKE 1 TABLET BY MOUTH EVERY DAY 90 tablet 1 024 Active Tirzepatide-Weight Management (Zepbound) 2.5 MG/0.5ML solution auto-injectorIndic ations:Class 3 severe obesity due to excess calories with serious comorbidity and body mass index (BMI) of 40.0 to 44.9 in adult ([facility]) Inject 0.5 mL (2.5 mg) under the skin 1 (one) time per week. 2 mL 1 024 Active Additional Information Patient not taking.Reported on 01/03/2025 Diclofenac Sodium 1 % gelIndications:Art hralgia of both hands Apply topically to affected areas twice daily 150 g 1 025 Active ibuprofen 600 MG tablet Take 1 tablet by mouth every 6 (six) hours. 021 2024 Discontinued melatonin 5 MG tablet Take one tablet by oral route 30 min before sleeping 022 2024 Discontinued FeroSul 325 (65 Fe) MG tablet TAKE 1 TABLET BY MOUTH EVERY DAY 90 tablet 3 023 2024 Discontinued D3 Super Strength 50 MCG (2000 UT) capsule TAKE 1 CAPSULE BY MOUTH EVERY DAY 90 capsule 3 023 2024 Discontinued ascorbid acid ER (Vitamin C) 500 MG ER capsule TAKE 1 CAPSULE BY MOUTH EVERY DAY WITH IRON TABLET 90 capsule 3 023 2024 Discontinued oral electrolytes replacement (Pedialyte) solution Take 120 mL by mouth every 2 (two) hours if needed (dehyrdation). 1000 mL 023 2024 Discontinued omeprazole (PriLOSEC) [address] capsuleIndications :Dyspepsia TAKE 1 CAPSULE BY MOUTH TWICE DAILY 1 HOUR BEFORE BREAKFAST AND BEFORE SUPPER 180 capsule 1 024 2024 Discontinued ondansetron ODT (Zofran-ODT) 4 MG disintegrating tablet 023 2024 Discontinued cyclobenzaprine (Flexeril) 10 MG tabletIndications: Spasm of cervical paraspinous muscle Take 1 tablet (10 mg) by mouth if needed in the morning, at noon, and at bedtime for muscle spasms for up to 10 days. 20 tablet 024 2024 Discontinued acetaminophen (Tylenol Extra Strength) 500 MG tabletIndications: Viral gastroenteritis Take 2 tablets (1,000 mg) by mouth every 6 (six) hours if needed for mild pain. 90 tablet 1 024 2024 Discontinued ibuprofen 400 MG tablet Take 1 tablet (400 mg) by mouth every 6 (six) hours if needed for moderate pain or fever for up to 30 doses. 30 tablet 024 2024 Discontinued albuterol 108 (90 Base) MCG/ACT inhaler Inhale 2 puffs every 4 (four) hours if needed for wheezing or shortness of breath. 18 g 1 024 2024 Discontinued guaiFENesin-codein e (Robitussin-AC) 100-10 MG/5ML syrupIndications:A cute cough Take 5 mL by mouth every 6 (six) hours if needed for cough. 100 mL 024 2024 Discontinued hydroCHLOROthiazid e 12.5 MG tabletIndications: Essential hypertension Take 1 tablet (12.5 mg) by mouth Once per day. 30 tablet 11 024 2024 Discontinued SUMAtriptan (Imitrex) 25 MG tabletIndications: Other migraine without status migrainosus, not intractable May repeat dose once in 2 hours if no relief. Do not exceed 2 doses in 24 hours. 9 tablet 4 024 2024 Discontinued cetirizine (ZyrTEC) 10 MG tablet Take 1 tablet (10 mg) by mouth Once per day. 90 tablet 3 024 2024 Discontinued fluticasone (Flonase) 50 MCG/ACT nasal spray Administer 2 sprays into each nostril Once per day. 16 g 3 024 2024 Discontinued guaiFENesin (Humibid 3) 400 MG tablet Take 1 tablet (400 mg) by mouth if needed in the morning, at noon, and at bedtime for cough or congestion. 30 tablet 024 2024 Discontinued Spacer/Aero-Holdin g Chambers (OptiChamber Rachel) misc USE DIRECTED 1 each 024 2024 Discontinued Active Problems Problem Noted Date Diagnosed Date Anemia 10/19/2023 10/19/2023 Chronic back pain 10/19/2023 10/19/2023 Spasm of cervical paraspinous muscle 08/11/2023 Assessment & Plan (08/11/2023 4:09 PM EDT): Use tylenol + Flexeril + Diclofenac gel Refer to PT If not improvement of sxs within 1 w , she can have Toradol inj 30 mg IM x 5d prn pain Cardiomegaly 04/27/2023 Overview (04/27/2023): Seen by cards 04/2022 (Dr. Curran at [facility]) for f/u re 2017 echo that showed grade II diastolic dysfunction. Per visit note patient dx with stable mild cardiomegaly with preserved EF and advised to f/u PRN. Repeat echo 04/2022 unremarkable Obstructive sleep apnea 04/27/2023 Hx of total hysterectomy 04/27/2023 Overview (04/27/2023): S/p hysterectomy (fibroids) at [facility] 08/2020. - Routine CLINICAL SOCIAL WORK AIDE care through [facility] maintenance 04/27/2023 Overview (04/27/2023): Mammo: Routine Pap: s/p total hysterectomy. Followed by [facility]. Routine paps d/c C-scope: Routine age 45 BMD: Routine Vision: Referred to [facility] eye care 03/2023 Dental: Established with [facility] Essential hypertension 04/17/2023 Overview (04/27/2023): ?? Losartan 50mg daily ?? Hx of recurrent CP which has prompted multiple ED visits all w/ negative ACS eval Maintenance: BMP: Lipid Panel: ASCVD Risk: Calculate pending updated labs EKG: Obtain baseline at f/u - Aerobic exercise to reduce BP. Initial goal of 30 min walk 3-5x/week. Increase as tolerated. - low-sodium diet (goal: <2g/day) and heart healthy diet such as DASH to reduce BP and prevent ASCVD. - Home BP monitoring 1-2 x day with goal of <140/90. - Seek immediate medical attention for chest pain, palpitations, SOB, syncope, or sudden changes in mental status. - Do not change or discontinue current prescriptions without first consulting health care provider Assessment & Plan (04/27/2023 10:56 AM EDT): ?? BP well controlled ?? Continue current regimen ?? Routine labs ordered History of total hysterectom y with bilateral salpingo-oophorectomy (BSO) 02/17/2022 Hypertensive disorder 02/14/2022 Encounters Date Type Department Care Team Description 01/03/2025 1:00 PM EST Office Visit [facility] DENTAL [address] [place] [address] KeithJanine Dental plaque (Primary Dx); Dental calculus; Encounter for dental examination 01/02/2025 1:45 PM EST Office Visit [facility] MEDICINE [address] [place] [address] CadwellJenni FNP Essential hypertension (Primary Dx); Class 3 severe obesity due to excess calories with serious comorbidity and body mass index (BMI) of 40.0 to 44.9 in adult ([facility]); Arthralgia of both hands; Dietary counseling; Exercise counseling 01/02/2025 Travel 12/30/2024 Telephone [facility] [place] [address] Jenni Hickey FNP chart prep 12/20/2024 Telephone [facility] [place] [address] Jenni Hickey FNP Med Refill 12/02/2024 Telephone [facility] [place] [address] Jenni Hickey FNP Medication Question 11/25/2024 Telephone [facility] [place] [address] EdelmiraJenni limon FNP Prior Authorization ([facility] Request: Zepbound) 11/25/2024 Telephone [facility] [place] [address] Dominga Tadeo RN 11/16/2024 3:15 PM EST Telemedicine [facility] [place] [address] Jenni Hickey FNP Class 3 severe obesity due to excess calories with serious comorbidity and body mass index (BMI) of 40.0 to 44.9 in adult ([facility]) (Primary Dx) 11/16/2024 Travel 11/03/2024 Telephone [facility] [place] [address] Dominga Tadeo, video intern from Last 3 Months Immunizations Name Administration Dates Next Due DTaP 04/08/2010 HPV, Quadrivalent 04/01/2010 Influenza injectable quadriv alent preservative free 10/27/2022,11/20/2021,02/17/2017 Influenza, IIV3, injectable 12/21/2014 Tdap 11/20/2021 Social History Tobacco Use Types Packs/Day Years Used Date Smoking Tobacco: Never Passive Smoke Exposure: Never Smokeless Tobacco: Never Tobacco Cessation:Counseling Given: Not Answered Alcohol Use Standard Drinks/Week Comments Never 0 [...] Orientation Straight 09/29/2022 10 :18 AM EDT Last Filed Vital Signs Vital Sign Reading Time Taken Comments Blood Pressure 128/84 01/03/2025 1:01 PM EST Pulse 66 01/02/2025 1:58 PM EST Temperature 36.2 ??C (97.2 ??F) 01/02/2025 1:58 PM ES T Respiratory Rate 18 01/02/2025 1:58 PM EST Oxygen Saturation 99% 05/03/2024 9:38 AM EDT Inhaled Oxygen Concentration - - Weight 119 kg (263 lb 3.2 oz) 01/02/2025 1:58 PM EST Height 167.6 cm (5' 6 ) 01/02/2025 1:58 PM EST Body Mass Index 42.48 01/02/2025 1:58 PM EST Plan of Treatment Health Maintenance Due Date Last Done Comments Alcohol/Substance Use Screening 1997 Family Planning (PISQ) 2000 Hepatitis B Vaccines (1 of 3 - 19+ 3-dose series) 2004 Pap Smear 2006 HPV Vaccines (2 - 3-dose series) 04/29/2010 04/01/2010 HPV/Cotest 2015 COVID-19 Vaccine ( - season) 2024 10/27/2022, 12/26/2021, 04/11/2021, Additional history exists Influenza Vaccine (#1) 2024 , 11/20/2021, 02/17/2017, Additional history exists Dental X-Ray: Bitewings 03/18/2025 03/17/2024 Dental Oral Exam 07/04/2025 01/03/2025, 03/17/2024 Dental Prophylaxis 07/04/2025 01/03/2025, 0 03/17/2024, 11/13/2022 Depression Screening 01/02/2026 01/02/2025, 01/02/20 SDOH Screening 01/02/2026 01/02/2025 Tobacco Screening 01/04/2026 01/04/2025 Dental X-Ray: Full Mouth 03/18/2027 03/17/2024 Lipid Panel 03/01/2029 03/01/2024, 03/30, 09/09/2022, Additional history exists DTaP/Tdap/Td Vaccines (3 - Td or Tdap) 11/20/2031 11/20/2021, 04/08/2010 Zoster Vaccines (1 of 2) 2035 RSV Patients and Patients Aged 60 years or older (1 - 1-dose 75+ series) 2060 HIV Screening Completed 10/02/2022, 09/09/2022 Hepatitis C Screening Completed 10/02/2022, 022 Cervical Cancer Screening Discontinued HIB Vaccines Aged Out No longer eligi ble based on patient's age to complete this topic Hepatitis A Vaccines Aged Out No long er eligible based on patient's age to complete this topic IPV Vaccines Aged Out No longer eligi ble based on patient's age to complete this topic Meningococcal Vaccine Aged Out No gianfranco elliot eligible based on patient's age to complete this topic Pneumococcal Vaccine: Pediatrics (0 to 5 Years) and At-Risk Patients (6 to 49) Years) Aged Out No longer eligible based on patient's age to complete this topic RSV under 20 months Aged Out No longe r eligible based on patient's age to complete this topic Rotavirus Vaccines Aged Out No longer eligible based on patient's age to complete this topic Procedures Procedure Name Priority Date/Time Associated Diagnosis Comments COMPREHENSIVE PERIODONTAL EVALUATION - NEW OR ESTABLISHED PATIENT Routine 01/03/2025 1:00 PM EST Dental plaque Dental calculus Encounter for dental examination PERIODIC ORAL EVALUATION - ESTABLISHED PATIENT Routine 01/03/2025 1:00 PM EST Dental plaque Dental calculus Encounter for dental examination ORAL HYGIENE INSTRUCTIONS Routine 01/03/2025 1:00 PM EST Dental plaque Dental calculus CASE PRESENTATION, DETAILED AND EXTENSIVE TREATMENT PLANNING Routine 01/03/2025 1:00 PM EST PROPHYLAXIS - ADULT Routine 01/03/2025 1 :00 PM EST Dental plaque Dental calculus INTRAORAL - COMPLETE SERIES OF RADIOGRAPHIC IMAGES Routine 03/17/2024 2:00 PM EDT Encounter for dental examination Dental calculus Teeth missing LIPID PANEL, STANDARD Routine 03/01/2024 11:47 AM EDT Essential hypertension ZZZ HISTORICAL HEPATITIS C ANTIBODY Routine 10/02/2022 3:28 PM EDT from Last 3 Months or Most Recently Relevant to Health Maintenance Results * (ABNORMAL) Lipid Panel, Standard (03/01/2024 11:47 AM EDT) Triglycerides 215(H) <150 mg/dL [facility] Comment:Desirable Triglyceri de: less than 150 mg/dLBorderline High Triglyceride 150-199 mg/dLHigh Triglyceride: 200-499 mg/dLVery High Triglyceride: greater than or equal to 5OO mg/dL Cholesterol 201(H) <200 mg/dL [facility] Comment:Desirable Cholestero l: less than 200 mg/dLBorderline High Cholesterol: 200-239 mg/dLHigh Cholesterol: greater than 239 mg/dL LDL Cholesterol Calculated 96 <100 mg/dL [facility] Comment:Desirable LDL: less than 100 mg/dLNear Optimal/Above Optimal LDL: 110- 129 mg/dLBorderline High LDL: 130-159 mg/dLHigh LDL: 160-189 mg/dLVery High LDL: greater than or equal to 190 mg/dL HDL Cholesterol 62 >40 mg/dL [facility] Comment:Desirable HDL: great er than 40 mg/dL Note: This HDL assay may give artificially low results in patients with liver disease. Blood Venous blood specimen / Unknown 03/01/2024 11:47 AM EDT 03/01/2024 6:56 PM EDT [facility] ANTENNA MACHINE OPERATOR LAB BLOOD ORDERABLES Final Re sult Performing Organization Address City/[facility]/ZIP Co de Phone Number [facility] [address] [place] [address] [phone] * Hepatitis C Antibody (10/02/2022 3:28 PM EDT) Hepatitis C Antibody Nonreactive Nonreactive [facility] Comment: Antibodies to HCV not detected; does not exclude early acute HCV infection. HIV AB/AG Nonreactive Nonreactive [facility] Comment: HIV-1 p24 Ag and/or HIV-1/HIV-2 Ab not detected. ?? A test result that is nonreactive does not exclude the possibility of exposure to or infection with HIV-1 and/or HIV-2. Nonreactive results in this assay for individuals with prior exposure to HIV-1 and/or HIV-2 may be due to antigen and antibody levels that are below the limit of detection of this assay. ?? The [employer] Slaughte[employer] HIV Ag/Ab Combo assay result and supplemental assay results should be interpreted in conjunction with the patient's clinical presentation, history and other laboratory results. ??If the results are inconsistent with clinical evidence, additional testing is suggested to confirm the result. Hepatitis B Surface Antigen Negative Negative [facility] 10/02/2022 3:28 PM EDT [place] HISTORICAL/NON ORDERABLE LABS Fi nal Result Performing Organization Address City/[facility]/ZIP Co de Phone Number [facility] from Last 3 Months or Most Recently Relevant to Health Maintenance Insurance [facility] - HSN PARTIAL (MEDICAID) [facility] Care Teams Account Support Specialist Relationship Specialty Start Date End Date Jenni Hickey FNP [address] [place] [id number] PCP - General Family Medicine 08/28/21
--- OUTSIDE RECORDS SUMMARY | 2025-01-29 02:09 | XMS_ITS | Encounter Summary ---
Author Organization [employer] [facility] Address [address] [place] [address] 7t [place] [address] Care Team Providers Care Rn Case Manager Hospice Name Role Phone Jenni Hickey [facility] Primary Care Provider [phone] Encounter Details Date Type Department Care Team (Latest Contact Info) Description 03/03/2022 Abstract [facility] CONVERSIONS Dental, Provider, DDS Social History Tobacco Use Types Packs/Day Years [...] on filedocumented in this encounter Care Teams Rn Case Manager Hospice Relationship Specialty Start Date End Date Jenni Hickey FNP [address] [place] [phone] PCP - General Family Medicine 08/28/21 documented as of this encounter
--- OUTSIDE RECORDS SUMMARY | 2025-01-29 02:09 | XMS_ITS | Encounter Summary ---
Author Organization [employer] [facility] Address [address] [place] [address] 7t [place] [address] Care Team Providers Care Granite Sandblaster Apprentice Name Role Phone Jenni Hickey [facility] Primary Care Provider [phone] Encounter Details Date Type Department Care Team (Latest Contact Info) Description 09/30/2019 Abstract [facility] CONVERSIONS Dental, Provider, DDS Social History Tobacco [...] on filedocumented in this encounter Care Teams Granite Sandblaster Apprentice Relationship Specialty Start Date End Date Jenni Hickey FNP [address] [place] [id number] PCP - General Family Medicine 08/28/21 documented as of this encounter
--- OUTSIDE RECORDS SUMMARY | 2025-01-29 02:09 | XMS_ITS | Encounter Summary ---
Author Organization [employer] [facility] Address [address] [place] [address] 7t [place] [address] Care Team Providers Care Chicken Hatchery Helper Name Role Phone Edelmira Jenni [facility] Primary Care Provider [phone] Encounter Details Date Type Department Care Team (Late st Contact Info) Description 10/30/2022 Orders Only [facility] MEDICINE [address] [place], [place] [phone] Jenni Hickey FNP [address] [place] [address] Social History Tobacco Use Types Packs/Day Years [...] on filedocumented in this encounter Care Teams Chicken Hatchery Helper Relationship Specialty Start Date End Date Jenni Hickey FNP [address] [place] [address] PCP - General Family Medicine 08/28/21 documented as of this encounter
--- OUTSIDE RECORDS SUMMARY | 2025-01-29 02:09 | XMS_ITS | Encounter Summary ---
Author Organization [employer] Address [address] [facility] 7t [place] [address] Care Team Providers Care Ux Developer Designer Name Role Phone Jenni Hickey [facility] Primary Care Provider [phone] Encounter Details Date Type Department Care Team (Late st Contact Info) Description 04/13/2023 Orders Only [facility]S [address] [place], [place] [phone] Yolie Wang LPN Social History Tobacco Use Types Packs/Day Years Used Date Smoking Tobacco: Never Passive Smoke Exposure: Never Smokeless Tobacco: Never Alcohol Use Standard Drinks/Week Comments Never 0 (1 standard drink = 0.6 oz pur e alcohol) Comments Unknown Sex and Gender Information Value [...] on filedocumented in this encounter Care Teams Ux Developer Designer Relationship Specialty Start Date End Date Jenni Hickey FNP [address] [place] [phone] PCP - General Family Medicine 08/28/21 documented as of this encounter
--- OUTSIDE RECORDS SUMMARY | 2025-01-29 02:09 | XMS_ITS | Encounter Summary ---
Author Organization [employer] Address [address] [facility] 7t [place] [address] Care Team Providers Care Community Cultural Development Officer Name Role Phone [facility] Primary Care Provider [phone] Reason for Visit * Reason Onset Date Comments chart prep 12/30/2024 Encounter Details Date Type Department Care Team ([facility] st Contact Info) Description 12/30/2024 Telephone [facility] MEDICINE [address] [place], [place] [phone] [facility] [address] [place] [address] chart prep Social History Tobacco Use Types Packs/Day Years Used Date Smoking Tobacco: Never Passive Smoke Exposure: Never Smokeless Tobacco: Never Alcohol Use Standard Drinks/Week Comments Never 0 (1 standard drink = 0.6 oz pur e alcohol) PHQ-2 Answer Date Recorded Patient Health Questionnaire-2 Score 0 08/10/2023 Housing Stability Answer Date Recorded What is your housing situation today? I have winnie garcia 10/03/[address] you li ve. Do you have problems with any of the following? None of the above 10/03/2023 Food Insecurity Answer Date Recorded Within the past 12 months, y ou worried that your food would run out before you got money to buy more: Never True 10/03/2023 Within the past 12 months,th e food you bought just didn't last and you didn't have enough money to get more: Never True 02/2023 Transportation Answer Date Recorded In the past 12 months, has l ack of transportation kept you from medical appts, meetings, work or from getting things needed for daily living? No 10/03/2023 Utilities Answer Date Recorded In the past 12 months, has t he electric, gas, oil or water company threatened to shut off services in your home? No 10/03/2023 Depression Answer Date Recorded Patient Health Questionnaire-2 Score 0 08/10/2023 Comments Unknown Sex and Gender Information Value Date Recorded Sex Assigned at Female 09/29/2022 10:18 AM EDT Legal Sex Female 10:18 AM EDT Gender Identity Female 09/29/2022 10:18 AM EDT Sexual Orientation Straight 09/29/2022 10 :18 AM EDT documented as of this encounter Miscellaneous Notes * Telephone Encounter - Lilia Nicholas [place] - 12/30/2024 11:17 AM EST Chart Prep Labs: not applicable Images: not applicable Vaccines due: yes Referrals: complete Overdue care gaps: Sbirt, SDOH, PHQ-9, Oral Health documented in this encounter Plan of Treatment Not on file documented as of this encounter Visit Diagnoses Not on filedocumented in this encounter Care Teams Community Cultural Development Officer Relationship Specialty Start Date End Date Jenni Hickey FNP [address] [place] [phone] PCP - General Family Medicine 08/28/21 documented as of this encounter
--- OUTSIDE RECORDS SUMMARY | 2025-01-29 02:09 | XMS_ITS | Encounter Summary ---
Author Organization [employer] Address [address] [facility] [address] [place] [address] Care Team Providers Care Portable Trackman Name Role Phone [place] [facility] Primary Care Provider [phone] Encounter Details Date Type Department Care Team (Late st Contact Info) Description 01/02/2025 1:45 PM EST Office Visit [facility] [address] [place], [place] [id number] [facility] [address] [place] [address] Essential hypertension (Primary Dx); Class 3 severe obesity due to excess calories with serious comorbidity and body mass index (BMI) of 40.0 to 44.9 in adult (CMS/HCC); Arthralgia of both hands; Dietary counseling; Exercise counseling Social History Tobacco Use Types Packs/Day Years [...] Sign Reading Time Taken Comments Blood Pressure 130/90 01/02/2025 1:58 PM EST Pulse 66 01/02/2025 1:58 PM EST Temperature 36.2 ??C (97.2 ??F) 01/02/2025 1:58 PM ES T Respiratory Rate 18 01/02/2025 1:58 PM EST Oxygen Saturation - - Inhaled Oxygen Concentration - - Weight 119 kg (263 lb 3.2 oz) 01/02/2025 1:58 PM EST Height 167.6 cm (5' 6 ) 01/02/2025 1:58 PM EST Body Mass Index 42.48 01/02/2025 1:58 PM EST documented in this encounter Progress Notes * [facility], ASSESSMENT MANAGER - 01/02/2025 1:45 PM EST SUBJECTIVE: Ivis Bowen is a 39 y.o. year old female with hypertension, obstructive sleep apnea and chronicback pain who presents for weight management follow-up . Denies recent illness, injury, or hospitalization. Acute Concerns: Zepbound PA was approved however she did not start due to supply shortage issues. Otherwise patient is doing well. Home blood pressure remains well-controlled. Denies other acute questions or concerns Interim Updates: Wt Readings from Last 5 Encounters: 01/02/25 263 lb 3.2 oz (119 kg) 05/31/24 266 lb (121 kg) 05/09/24 272 lb (123 kg) 05/03/24 273 lb (124 kg) 04/11/24 274 lb 3.2 oz (124 kg) Social History Social History Narrative - 3 children (boys ages 21, 18, 13) currently live with patient - Works at [employer] - No hx of tobacco, alcohol or substance use Patient Active Problem List Diagnosis Essential hypertension Cardiomegaly Obstructive sleep apnea Hx of total hysterectomy Healthcare maintenance Hypertensive disorder History of total hysterectomy with bilateral salpingo-oophorectomy (BSO) Spasm of cervical paraspinous muscle Anemia Chronic back pain Past Surgical History: Procedure Laterality Date WISDOM TOOTH EXTRACTION No family history on file. Review of Systems Constitutional: Negative for fatigue, fever and unexpected weight change. Eyes: Negative for visual disturbance. Respiratory: Negative for apnea, chest tightness and shortness of breath. Cardiovascular: Negative for chest pain, palpitations and leg swelling. Neurological: Negative for dizziness, light-headedness and headaches. OBJECTIVE: Vitals: 01/02/25 1358 BP: 130/90 Pulse: 66 Resp: 18 Temp: 97.2 ??F (36.2 ??C) Physical Exam Constitutional: General: She is not in acute distress. Appearance: Normal appearance. HENT: Head: Normocephalic and atraumatic. Right Ear: External ear normal. Left Ear: External ear normal. Nose: Nose normal. Eyes: Conjunctiva/sclera: Conjunctivae normal. Cardiovascular: Rate and Rhythm: Normal rate and regular rhythm. Heart sounds: Normal heart sounds. Pulmonary: Effort: Pulmonary effort is normal. Breath sounds: Normal breath sounds. Skin: General: Skin is warm and dry. Neurological: General: No focal deficit present. Mental Status: She is alert and oriented to person, place, and time. Psychiatric: Mood and Affect: Mood normal. Behavior: Behavior normal. ASSESSMENT/PLAN 1. Essential hypertension (Primary) -Well-controlled Continue losartan 50 mg once daily Reviewed ED precautions to include chest pain, shortness of breath, severe headache, sudden vision changes or BP >=180/>=120 mmHg. Contact HC if three or more BP readings >140/90. 2. Class 3 severe obesity due to excess calories with serious comorbidity and body mass index (BMI)of 40.0 to 44.9 in adult ([facility]) Patient will contact pharmacy and once Zepbound available will plan to start once weekly injectionsas previously discussed - Encouraged regular aerobic exercise within initial goal of 30 minute walk 3x/week - Encouraged balanced diet with a variety of fruits, vegetables, and lean meats. 3. 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 Frequent repetitive motion reports that her joints sometimes hurt at the end of the day will trial as needed diclofenac gel. - Diclofenac Sodium 1 % gel; Apply topically to affected areas twice daily Dispense: 150 g; Refill:1 4. Dietary counseling 5. Exercise counseling Follow Up: 6-8 weeks after zepbound start Current Outpatient Medications on File Prior to Visit Medication Sig Dispense Refill acetaminophen (Tylenol Extra Strength) 500 MG tablet Take 2 tablets (1,000 mg) by mouth every 6 (six) hours if needed for mild pain. 90 tablet 1 albuterol 108 (90 Base) MCG/ACT inhaler Inhale 2 puffs every 4 (four) hours if needed for wheezing or shortness of breath. 18 g 1 ascorbid acid ER (Vitamin C) 500 MG ER capsule TAKE 1 CAPSULE BY MOUTH EVERY DAY WITH IRON TABLET 90 capsule 3 cetirizine (ZyrTEC) 10 MG tablet Take 1 tablet (10 mg) by mouth Once per day. 90 tablet 3 cyclobenzaprine (Flexeril) 10 MG tablet Take 1 tablet (10 mg) by mouth if needed in the morning, atnoon, and at bedtime for muscle spasms for up to 10 days. 20 tablet 0 D3 Super Strength 50 MCG (2000 UT) capsule TAKE 1 CAPSULE BY MOUTH EVERY DAY (Patient not taking: Reported on 08/10/2023) 90 capsule 3 FeroSul 325 (65 Fe) MG tablet TAKE 1 TABLET BY MOUTH EVERY DAY (Patient not taking: Reported on 08/10/2023) 90 tablet 3 fluticasone (Flonase) 50 MCG/ACT nasal spray Administer 2 sprays into each nostril Once per day. 16g 3 guaiFENesin (Humibid 3) 400 MG tablet Take 1 tablet (400 mg) by mouth if needed in the morning, at noon, and at bedtime for cough or congestion. 30 tablet 0 guaiFENesin-codeine (Robitussin-AC) 100-10 MG/5ML syrup Take 5 mL by mouth every 6 (six) hours if needed for cough. 100 mL 0 hydroCHLOROthiazide 12.5 MG tablet Take 1 tablet (12.5 mg) by mouth Once per day. 30 tablet 11 ibuprofen 400 MG tablet Take 1 tablet (400 mg) by mouth every 6 (six) hours if needed for moderate pain or fever for up to 30 doses. 30 tablet 0 ibuprofen 600 MG tablet Take 1 tablet by mouth every 6 (six) hours. losartan (Cozaar) 50 MG tablet TAKE 1 TABLET BY MOUTH EVERY DAY 90 tablet 1 melatonin 5 MG tablet Take one tablet by oral route 30 min before sleeping omeprazole (PriLOSEC) [address] capsule TAKE 1 CAPSULE BY MOUTH TWICE DAILY 1 HOUR BEFORE BREAKFAST AND BEFORE SUPPER 180 capsule 1 ondansetron ODT (Zofran-ODT) 4 MG disintegrating tablet oral electrolytes replacement (Pedialyte) solution Take 120 mL by mouth every 2 (two) hours if needed (dehyrdation). 1000 mL 0 Spacer/Aero-Holding Chambers ([facility]) [facility] USE DIRECTED 1 each 0 SUMAtriptan (Imitrex) 25 MG tablet May repeat dose once in 2 hours if no relief. Do not exceed 2 doses in 24 hours. 9 tablet 4 Tirzepatide-Weight Management (Zepbound) 2.5 MG/0.5ML solution auto-injector Inject 0.5 mL (2.5 mg)under the skin 1 (one) time per week. 2 mL 1 No current facility-administered medications on file prior to visit. Upper Sorbian Translation: Provided by [facility] staff member NAYAN Marshall documented in this encounter Plan of Treatment Not on file documented as of this encounter Visit Diagnoses Diagnosis Essential hypertension- Primary Unspecified essential hypertension Class 3 severe obesity due to excess calories with serious comorbidity and body mass index (BMI) of 40.0 to 44.9 in adult (CMS/HCC) Arthralgia of both hands Dietary counseling Dietary surveillance and counseling Exercise counseling documented in this encounter Care Teams Portable Trackman Relationship Specialty Start Date End Date Jenni Hickey FNP [address] [place] [id number] PCP - General Family Medicine 08/28/21 documented as of this encounter
[2025-01-29 02:20] LABS: Bacteria Urine None Seen (None Seen); Hyaline Casts Urine 0-2 /LPF (0-2); RBC Urine 0-2 /HPF (0-2); Squamous Epithelial Cell Urine 0-2 /HPF (0-2); WBC Urine 0-5 /HPF (0-5)
[2025-01-29 03:00] VITALS: BP 121/70; PULSE 69; RESP 18; TEMP 37; O2SAT 99
--- NOTE | 2025-01-29 03:51 | ED.ABDPAIN ---
HPI - Abdominal Pain General Chief Complaint: Urogenital-Female Stated Complaint: abd pain Time Seen by Provider: 01/29/25 03:43 Source: patient Mode of arrival: ambulatory Limitations: no limitations History of Present Illness ED Provider: HPI narrative: Patient with significant abdominal complaints in the past noticed lower abdominal discomfort mostly on the left side for last 3 days gets worse when she moves her bowels no diarrhea no blood in his stool no nausea no vomiting no fever patient never had similar pain in the past no history of kidney stone no urinary symptoms Related Data Home Medications ?Medication ?Instructions ?Recorded ?Confirmed acetaminophen 650 mg 650 mg PO Q8H PRN 10/02/22 10/02/22 tablet,extended release ascorbic acid (vitamin C) 500 mg 500 mg PO DAILY 10/02/22 10/02/22 capsule,extended release cholecalciferol (vitamin D3) 50 50 mcg PO DAILY 10/02/22 10/02/22 mcg (2,000 unit) capsule (Vitamin D3) citalopram 10 mg tablet 10 mg PO DAILY 10/02/22 10/02/22 losartan 50 mg tablet 50 mg PO DAILY 10/02/22 10/02/22 melatonin 5 mg tablet 5 mg PO BEDTIME 10/02/22 10/02/22 sumatriptan succinate 25 mg tablet 0 mg PO 10/02/22 10/02/22 Previous Rx's ?Medication ?Instructions ?Recorded benzonatate 100 mg capsule 100 mg PO TID PRN cough #15 caps 12/16/20 (Ludin Gordon) cyclobenzaprine 10 mg tablet 10 mg PO TID PRN muscle spasm #14 05/01/22 tabs ibuprofen 600 mg tablet 600 mg PO Q6H PRN pain #30 tabs 05/01/22 metronidazole 500 mg tablet 500 mg PO BID 7 days #14 tabs 10/06/22 benzonatate 100 mg capsule 100 mg PO BID PRN cough 7 days #14 01/30/23 caps prednisone 20 mg tablet 40 mg (2 x 20 mg) PO DAILY 7 days 07/12/23 #14 tabs acetaminophen 500 mg tablet 500 mg PO Q6H PRN fever or pain 07/20/23 (Tylenol Extra Strength) #14 tabs cyclobenzaprine 5 mg tablet 5 mg PO Q8H PRN pain (scale score 07/20/23 7-10) 5 days #14 tabs lidocaine 5 % topical patch 1 patch topical DAILY PRN pain #30 07/20/23 (Lidoderm) ea naproxen 500 mg tablet 500 mg PO BID PRN pain 10 days #20 07/20/23 tabs metronidazole 500 mg tablet 500 mg PO BID 7 days #14 tabs 09/10/23 cyclobenzaprine 10 mg tablet 10 mg PO TID PRN muscle spasm #20 10/03/23 tabs ibuprofen 600 mg tablet 600 mg PO Q8H PRN pain #14 tabs 10/03/23 benzonatate 200 mg capsule 200 mg PO TID PRN cough #20 caps 10/09/23 amoxicillin 875 mg-potassium 1 tab PO BID #20 tabs 01/29/25 clavulanate 125 mg tablet Allergies Allergy/AdvReac Type Severity Reaction Status Date / Time No Known Allergies Allergy Mild UNKNOWN Verified 01/29/25 01:52 Review of Systems Review of Systems Yes all other systems are reviewed and are negative [facility] Past Medical History Medical History Depression Anemia Hypertension Surgical History Hx of hysterectomy Family History Family History Maternal Aunt Breast cancer Social History Social History Alcohol intake: never Patient Tobacco Use Status: Never used Tobacco Smoked in Last 30 Days: No Advance Directives: No Do you have a plan to hurt others: No Plan Physical Exam ED Vital Signs: Vital Signs - 24 hr 01/29/25 01:50 01/29/25 03:00 Temperature 97.3 F 98.6 F Pulse Rate 78 69 Respiratory Rate 16 18 Blood Pressure 123/64 121/70 Pulse Oximetry 100 99 Oxygen Delivery Method Room Air Room Air BMI result Body Mass Index 40.3 Appearance: Alert. Oriented X3. No acute distress. Eyes: No pallor or icterus ENT: Pharynx normal. Oral Mucosa moist Neck: Normal inspection. Neck supple. CVS: Normal heart rate and rhythm. Pulses normal. Respiratory: No respiratory distress. Equal air entry bilateral, no wheezing/rales/rhonchi Abdomen: Soft and deep tenderness left lower quadrant Bowel sounds are present, no mass palpable, no CVA tenderness Skin: Skin warm and dry. Normal skin color. Normal skin turgor. Extremities: No lower extremity edema. No calf tenderness Neuro: Oriented X 3. No motor deficit. Medical Decision Making Medical Decision Making [facility] Narrative: Patient's left lower quadrant pain clinically diverticulitis CT scan done which showed uncomplicated sigmoid diverticulitis will discharge patient home on Augmentin labs are stable Differential Diagnosis Differential Diagnoses: The differential diagnosis associated with the presentation includes UTI/kidney stone/diverticulitis Lab Data [facility] Lab Attestation statement: I reviewed the patient's lab results. 01/29/25 04:16 01/29/25 04:16 Labs: Lab Results 01/29/25 01/29/25 Range/Units 01:57 04:16 WBC 8.9 (4.8-10.8) X10*3/uL RBC 4.16 L (4.20-5.50) X10*6/uL Hgb 11.4 L (12.0-16.0) g/dl Hct 34.4 L (37.0-47.0) % MCV 82.7 (80.0-98.0) fL MCH 27.4 (27.0-33.0) pg MCHC 33.1 (31.0-35.0) g/dl RDW 12.7 (11.0-16.0) % Plt Count 173 (160-400) X10*3/uL MPV 11.4 (9.4-12.3) fL Immature Gran % (Auto) 0.6 H (0.0-0.4) % Neut % (Auto) 59.3 (45-73) % Lymph % (Auto) 32.3 (20-40) % [place] % (Auto) 6.8 (2-11) % Eos % (Auto) 0.7 (0-4) % Baso % (Auto) 0.3 (0-2) % Lymph # (Auto) 2.9 (1.2-4.9) X10*3/uL [place] # (Auto) 0.6 (0.1-1.2) X10*3/uL Eos # (Auto) 0.1 (0.0-0.4) X10*3/uL Baso # (Auto) 0.0 (0.0-0.2) X10*3/uL Abs Immat Gran (auto) 0.05 H (0.00-0.03) X10*3/uL Absolute Neuts (auto) 5.3 (2.0-8.3) x10*3/uL Absolute Nucleated RBC 0.000 (0.0-0.012) X10*3/uL Nucleated RBC % (auto) 0.0 (0.0-0.2) /100WBC Urine Color Yellow Urine Appearance Clear Urine pH 6.0 (5.0-9.0) Ur Specific [place] 1.010 (1.005-1.025) Urine Protein Negative (Neg-Trace) mg/dL Urine Glucose (UA) Negative (Negative) mg/dL Urine Ketones Negative (Negative) mg/dL Urine Blood Negative (Negative) Urine Nitrite Negative (Negative) Ur Leukocyte Esterase Negative (Negative) Urine RBC 0-2 (0-2) /HPF Urine WBC 0-5 (0-5) /HPF Ur Squamous Epith Cells 0-2 (0-2) /HPF Urine Bacteria None Seen (None Seen) Hyaline Casts 0-2 (0-2) /LPF Urine Test NEGATIVE (NEGATIVE) Radiology Impression Discussion of test interpretation with radiology: I have reviewed the radiologist's reading. Radiologist Impression: [place] [id number] CT Scan Report Signed Patient: Ivis Bowen MR#: [id number] : 1985 Acct:[id number] Age/Sex: 39 / F ADM Date: 01/29/25 Loc: .ED Attending Dr: Ordering Physician: Conner Sierra MD Date of Service: 01/29/25 Procedure(s): CT abdomen pelvis wo IV con Accession Number(s): [id number] cc: [facility]; Conner Sierra MD~ Report Number: [id number]: Total DLP = 886.00 mGy-cm CLINICAL HISTORY: Left lower quadrant pain? Diverticular CT abdomen and pelvis without contrast Comparison: CT - ABD PELVIS WO CONT [id number] - 03/08/17 21:41 EDT Findings: Diffuse esophageal mural thickening, nonspecific. The gallbladder and solid organs are within normal limits. No renal stones. Colonic diverticulosis with mural thickening, peridiverticular inflammatory changes and fluid stranding noted in the sigmoid colon, consistent with diverticulitis. No evidence of free air or peridiverticular collections. No bowel obstruction. Fat containing umbilical hernia. Large rectal stool burden. Normal appendix. Distended bladder. The bones are intact. IMPRESSION: 1. Uncomplicated sigmoid diverticulitis. 2. Distended bladder. This document has been electronically signed by: Abimael Ascencio MD on 01/29/2025 04:12:59 Medications Administered Discontinued Medications Generic Name Dose Route Start Last Admin Trade Name Freq PRN Reason Stop Dose Admin Morphine Sulfate 4 mg 01/29/25 03:52 01/29/25 04:12 Morphine Sulfate 4 Mg/Ml Cartridge IVPUSH 01/29/25 03:53 4 mg ONCE ONE Administration Protocol Ondansetron HCl 4 mg 01/29/25 03:52 01/29/25 04:12 Ondansetron Hcl 4 Mg/2 Ml Vial IVPUSH 01/29/25 03:53 4 mg ONCE ONE Administration Discharge Plan Discharge Clinical Impression: Diverticulitis Patient Disposition: Home, Self-Care Instructions: Diverticulitis (ED) Additional Instructions: Drink plenty of fluids Liquid diet advanced slowly Antibiotic as advised Avoid constipation Report to ER if worsening of the pain/fever/blood in his stool Prescriptions: New amoxicillin-pot clavulanate 875-125 mg tablet 1 tab PO BID Qty: 20 0RF No Action metronidazole 500 mg tablet 500 mg PO BID 7 Days Qty: 14 0RF Rx Instructions: Take with food, Avoid alcohol and vinegar products metronidazole 500 mg tablet 500 mg PO BID 7 Days Qty: 14 0RF benzonatate [Tessalon Perles] 100 mg capsule 100 mg PO TID PRN (Reason: cough) Qty: 15 0RF cyclobenzaprine 10 mg tablet 10 mg PO TID PRN (Reason: muscle spasm) Qty: 14 0RF ibuprofen 600 mg tablet 600 mg PO Q6H PRN (Reason: pain) Qty: 30 0RF benzonatate 100 mg capsule 100 mg PO BID PRN (Reason: cough) 7 Days Qty: 14 0RF acetaminophen [Tylenol Extra Strength] 500 mg tablet 500 mg PO Q6H PRN (Reason: fever or pain) Qty: 14 0RF lidocaine [Lidoderm] 5 % adhesive patch,medicated 1 patch topical DAILY MDD remove after 12 hours PRN (Reason: pain) Qty: 30 0RF Rx Instructions: leave on most painful area for up to 12 hrs naproxen 500 mg tablet 500 mg PO BID PRN (Reason: pain) 10 Days Qty: 20 0RF cyclobenzaprine 5 mg tablet 5 mg PO Q8H PRN (Reason: pain (scale score 7-10)) 5 Days Qty: 14 0RF cyclobenzaprine 10 mg tablet 10 mg PO TID PRN (Reason: muscle spasm) Qty: 20 0RF ibuprofen 600 mg tablet 600 mg PO Q8H PRN (Reason: pain) Qty: 14 0RF benzonatate 200 mg capsule 200 mg PO TID PRN (Reason: cough) Qty: 20 0RF prednisone 20 mg tablet 40 mg PO DAILY 7 Days Qty: 14 0RF losartan 50 mg tablet 50 mg PO DAILY sumatriptan succinate 25 mg tablet 0 mg PO acetaminophen 650 mg tablet extended release 650 mg PO Q8H PRN ascorbic acid (vitamin C) 500 mg capsule, extended release 500 mg PO DAILY melatonin 5 mg tablet 5 mg PO BEDTIME cholecalciferol (vitamin D3) [Vitamin D3] 50 mcg (2,000 unit) capsule 50 mcg PO DAILY citalopram 10 mg tablet 10 mg PO DAILY Print Language: Tuvaluan
[2025-01-29] MEDS: Morphine Sulfate 4 MG/ML CARTRIDGE IVPUSH (04:12)
[2025-01-29] MEDS: ondansetron HCL 4 MG/2 ML VIAL IVPUSH (04:12)
[2025-01-29 04:24] LABS: Basophils Percent Auto 0.3 % (0-2); Eosinophils Absolute Auto 0.1 X10*3/uL (0.0-0.4); Eosinophils Percent Auto 0.7 % (0-4); Hematocrit 34.4 % (37.0-47.0); Hemoglobin 11.4 g/dl (12.0-16.0); Imm Gran Abs Auto 0.05 X10*3/uL (0.00-0.03); Imm Gran Pct Auto 0.6 % (0.0-0.4); Lymphocytes Absolute Auto 2.9 X10*3/uL (1.2-4.9); Lymphocytes Percent Auto 32.3 % (20-40); MANUAL DIFF FLAG NO; Mean Corpuscular HGB Conc 33.1 g/dl (31.0-35.0); Mean Corpuscular Hemoglobin 27.4 pg (27.0-33.0); Mean Corpuscular Volume 82.7 fL (80.0-98.0); Mean Platelet Volume 11.4 fL (9.4-12.3); Monocytes Absolute Auto 0.6 X10*3/uL (0.1-1.2); Monocytes Percent Auto 6.8 % (2-11); Neutrophils Absolute Auto 5.3 x10*3/uL (2.0-8.3); Neutrophils Percent Auto 59.3 % (45-73); Platelet Count 173 X10*3/uL (160-400); Red Blood Count 4.16 X10*6/uL (4.20-5.50); Red Cell Distribution Width 12.7 % (11.0-16.0); White Blood Count 8.9 X10*3/uL (4.8-10.8)
[2025-01-29 04:41] LABS: Alanine Aminotransferase 18 U/L (0-31); Albumin Level 3.8 g/dL (3.5-5.0); Alkaline Phosphatase 80 U/L (39-117); Anion Gap 14 (12-20); Aspartate Amino Transferase 24 U/L (5-31); Bilirubin Total 0.3 mg/dL (0.0-1.0); Blood Urea Nitrogen 16 mg/dL (9-16); Calcium 8.7 mg/dL (8.4-10.2); Carbon Dioxide 23 mmol/L (22-29); Chloride 106 mmol/L (96-108); Estimated Glomerular Filt Rate > 60; Glucose Random 88 mg/dL (60-115); Sodium 139 mmol/L (135-145); Total Protein 7.3 g/dL (6.5-8.0)
[2025-01-29] MEDS: Amoxicillin/Potassium Clav 875 MG TABLET PO (04:47)
[2025-01-29 04:51] VITALS: BP 128/75; PULSE 98; RESP 18; TEMP 36.6; O2SAT 99
== END 2025-01-29 04:52 | disposition home or self-care (01) ==
PROVIDERS: Emergency Provider Internal Medicine
DX: K57.32 Diverticulitis of large intestine without perforation or abscess without bleeding (principal); R10.32 Left lower quadrant pain; Z79.899 Other long term (current) drug therapy
CPT/HCPCS: 36415; 74176; 80053; 81001; 81025; 85025; 96374; 96375; 99284; J2270; J2405

== ENCOUNTER → 2025-01-29 03:51 | Outpatient (BNV) | payer OTHER, SELFPAY | PROVIDERS: Emergency Provider Internal Medicine; Visit Provider Radiology Diagnostic Radiology | DX: K57.32 Diverticulitis of large intestine without perforation or abscess without bleeding (principal) | CPT/HCPCS: 74176 ==

== ENCOUNTER 2025-02-08 14:58 | Outpatient (AMB) | payer OTHER, SELFPAY ==
--- NOTE | 2025-02-08 15:15 | MHC.OFFVIS ---
Vital Signs 02/08/25 15:19 Height 5 ft 6 in Weight 249 lb BMI 40.2 BP 122/76 Intake Visit Reasons: STD Testing Account Services Associate Required: Yes Account Services Associate Language: Reconnaissance Man Services: Account Services Associate Present Account Services Associate Name: Mery Hemp Fiber Taker Off: Hemp Fiber Taker Off Present (Mery) Allergies No Known Allergies Allergy (Mild, Verified 02/08/25 15:15) UNKNOWN HPI Comments Details: Patient is here today for STD testing. She denies any vaginal discharge, odors, pelvic pain, urinary symptoms. She would like to additionally have blood work drawn. [facility] Medical History Depression Anemia Hypertension Surgical History Hx of hysterectomy Family History Maternal Aunt Breast cancer Social History Alcohol intake: never Patient Tobacco Use Status: Never used Tobacco Female Reproductive History Menstrual Age of Menarche: 11 Review of Systems Const All systems reviewed & are unremarkable except as noted in HPI and below Physical Exam Vital Signs: Last Vital Signs BP 122/76 02/08/25 15:19 BMI result Body Mass Index 40.2 Const General: cooperative, healthy appearing and no acute distress Orientation/consciousness: patient oriented x3 GI Inspection: Yes normal to inspection Palpation (GI): Soft to palpation and Other GI palpation findings present (Nontender) Rectal Exam - Female: visual inspection normal General: Yes bladder normal to palpation External Female Exam: normal appearance of the urethra Speculum Exam - Vagina: normal appearance of the vagina, normal palpation and normal vaginal discharge Speculum Exam - Cervix: normal appearance of the cervix and Other cervical findings present (pocket on right ) Bimanual exam- vagina & uterus: normal bimanual exam, normal palpation, uterine size normal, bladder normal to palpation and uterus absent Bimanual Exam- Adnexa, other: normal adnexae Neuro General: patient oriented x3 Assessment & Plan Assessment & Plan (1) Possible exposure to STD: Code(s): Z20.2 - Contact with and (suspected) exposure to infections with a predominantly sexual mode of transmission Plan GC chlamydia and BV panel taken. Patient sent to the labs for blood work screening. Advised consistent use of condoms for prevention of STD exposure. The patient expressed understanding and agreement with the plan of care. All of her questions and concerns were addressed to the best of my ability. This note is constructed using voice recognition software. While every effort has been made to ensure accuracy, rig builder helper errors may have been included. Orders: Orders HIV Ab/Ag Today Z20.2 - Contact with and (suspected) exposure to infections with a predominantly sexual mode of transmission Hepatitis B Core Antibody Today Z20.2 - Contact with and (suspected) exposure to infections with a predominantly sexual mode of transmission Syphilis Screen Today Z20.2 - Contact with and (suspected) exposure to infections with a predominantly sexual mode of transmission Hepatitis C Antibody Reflex Today Z20.2 - Contact with and (suspected) exposure to infections with a predominantly sexual mode of transmission Coding Level of Care Code Est Pt Level 3 (17181) Diagnoses Possible exposure to STD Z20.2
[2025-02-08 15:19] VITALS: BP 122/76; BMI 40.2
--- OUTSIDE RECORDS SUMMARY | 2025-02-08 17:34 | XMS_ITS | Encounter Summary ---
Author Organization [employer] Address [address] [place] [address] [address] [place] [address] Care Team Providers Care Roundhouse Supervisor Name Role Phone Jenni Hickey [facility] Primary Care Provider [phone] Encounter Details Date Type Department Care Team (Late st Contact Info) Description 10/30/2022 Orders Only [facility] [address] [place] [address] Jenni Hickey FNP [address] [place] [address] Witnessed episode of apnea (Primary Dx) Social [...] Primary documented in this encounter Care Teams Roundhouse Supervisor Relationship Specialty Start Date End Date Jenni Hickey FNP [address] [place] [address] PCP - General Family Medicine 08/28/21 documented as of this encounter
--- OUTSIDE RECORDS SUMMARY | 2025-02-08 17:34 | XMS_ITS | Clinical Summary ---
Author Organization [employer] Address [address] [place] [address] Care Team Providers Care Carpentry Specialist Name Role Phone [facility] Primary Care Provider [phone] Allergies No known active allergies Medications Tirzepatide-Kulwinder ght Management (Zepbound) 2.5 MG/0.5ML solution auto-injectorIn dications:Class 3 severe obesity due to excess calories with serious comorbidity and body mass index (BMI) of 40.0 to 44.9 in adult (CMS/[facility]) Inject 0.5 mL (2.5 mg) under the skin 1 (one) time per week. 2 mL 1 11/16/20 24 Active Additional Information Patient not taking.Reported on 01/03/2025 Diclofenac Sodium 1 % gelIndications: Arthralgia of both hands Apply topically to affected areas twice daily 150 g 1 01/02/20 25 Active losartan (Cozaar) 50 MG tabletIndicatio ns:Essential hypertension TAKE 1 TABLET BY MOUTH EVERY DAY 90 tablet 1 02/07/20 25 Active losartan (Cozaar) 50 MG tabletIndicatio ns:Essential hypertension TAKE 1 TABLET BY MOUTH EVERY DAY 90 tablet 1 07/29/20 24 025 Discontinued Active Problems Problem Noted Date Diagnosed [...] Seen by cards 04/2022 (Dr. Curran at [facility]) for f/u re 2017 echo that showed grade II diastolic dysfunction. Per visit note patient dx with stable mild cardiomegaly with preserved EF and advised to f/u PRN. Repeat echo 04/2022 unremarkable Obstructive sleep apnea 04/27/2023 Hx of total hysterectomy 04/27/2023 Overview (04/27/2023): S/p hysterectomy (fibroids) at [facility] 08/2020. 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 Followed by [facility]. Routine paps d/c C-scope: Routine age 45 BMD: Routine Vision: Referred to [facility] eye care 03/2023 Dental: Established with [facility] Essential hypertension 04/17/2023 Overview (04/27/2023): ?? Losartan [...] Encounters Date Type Department Care Team Description 02/04/2025 Refill [facility] [place] [address] Jenni Hickey FNP Essential hypertension 01/29/2025 Orders Only GENERIC EXTERNAL DATA DEPARTMENT Provider, Generic External Data 01/03/2025 1:00 PM EST Office Visit [facility] [place] [address] Janine Parker Dental plaque (Primary Dx); Dental calculus; Encounter for dental examination 01/02/2025 1:45 PM EST Office Visit [facility] [place] [address] Jenni Hickey FNP Essential hypertension (Primary Dx); Class 3 severe obesity due to excess calories with serious comorbidity and body mass index (BMI) of 40.0 to 44.9 in adult (CMS/[facility]); Arthralgia of both hands; Dietary counseling; Exercise counseling 01/02/2025 Travel 12/30/2024 Telephone [facility] [place] [address] Jenni Hickey FNP chart prep 12/20/2024 Telephone [facility] [place] [address] Jenni Hickey FNP Med Refill 12/02/2024 Telephone [facility] [place] [address] Jenni Hickey FNP Medication Question 11/25/2024 Telephone [facility] [place] [address] Jenni Hickey FNP Prior Authorization ([facility] Request: Zepbound) 11/25/2024 Telephone [facility] [place] [address] Dominga Tadeo RN 11/16/2024 3:15 PM EST Telemedicine [facility] [place] [address] Jenni Hickey FNP Class 3 severe obesity due to excess calories with serious comorbidity and body mass index (BMI) of 40.0 to 44.9 in adult (CMS/HCC) (Primary Dx) 11/16/2024 Travel from Last 3 Months Immunizations Name Administration [...] 04/29/2010 04/01/2010 HPV/Cotest 2015 COVID-19 Vaccine ( season) 2024 10/27/2022, 12/26/2021, 04/11/2021, Additional history exists Influenza Vaccine (#1) 2024 , 11/20/2021, 02/17/2017, Additional history exists Dental X-Ray: Bitewings 03/18/2025 03/17/2024 Dental Oral Exam 07/04/2025 01/03/2025, 03/17/2024 Dental Prophylaxis 07/04/2025 01/03/2025, 0 03/17/2024, 11/13/2022 Depression Screening 01/02/2026 01/02/2025, 01/02/20 25 SDOH Screening 01/02/2026 01/02/2025 Tobacco Screening 01/04/2026 01/04/2025 Dental X-Ray: Full Mouth 03/18/2027 03/17/2024 Lipid Panel 03/01/2029 03/01/2024, 0507/2023, 09/09/2022, Additional history exists DTaP/Tdap/Td Vaccines (3 [...] Name Priority Date/Time Associated Diagnosis Comments COMPREHENSIVE METABOLIC PANEL Routine 01/29/2025 4:16 AM EST CBC WITH AUTO DIFFERENTIAL Routine 01/29/2025 4:[address] ABDOMEN PELVIS WO CONTRAST Routine 01/29/2025 4:12 AM EST URINALYSIS, COMPLETE, WITH REFLEX TO CULTURE Routine 01/29/2025 1:57 AM EST HCG, QL, URINE Routine 01/29/2025 1:57 AM EST COMPREHENSIVE PERIODONTAL EVALUATION - NEW OR ESTABLISHED [...] Relevant to Health Maintenance Results * (ABNORMAL) CBC auto differential (01/29/2025 4:16 AM EST) White Blood Count 8.9 4.8 - 10.8 X10*3/uL [facility] Red Blood Count 4.16(L) 4.20 - 5.50 X10*6/uL [facility] Hemoglobin 11.4(L) 12.0 - 16.0 g/dl [facility] Hematocrit 34.4(L) 37.0 - 47.0 % [facility] Mean Corpuscular Volume 82.7 80.0 - 98.0 fL [facility] Mean Corpuscular Hemoglobin 27.4 27.0 - 33.0 pg [facility] Mean Corpuscular HGB Conc 33.1 31.0 - 35.0 g/dl [facility] Red Cell Distribution Width 12.7 11.0 - 16.0 % [facility] Platelet Count 173 160 - 400 X10*3/uL [facility] Mean Platelet Volume 11.4 9.4 - 12.3 fL [facility] Neutrophils Percent Auto 59.3 45 - 73 % [facility] Imm Gran Pct Auto 0.6(H) 0.0 - 0.4 % [facility] Lymphocytes Percent Auto 32.3 20 - 40 % [facility] Monocytes Percent Auto 6.8 2 - 11 % [facility] Eosinophils Percent Auto 0.7 0 - 4 % [facility] Basophils Percent Auto 0.3 0 - 2 % [facility] NRBC Pct Auto 0.0 0.0 - 0.2 /100WBC [facility] Neutrophils Absolute Auto 5.3 2.0 - 8.3 x10*3/uL [facility] Imm Gran Abs Auto 0.05(H) 0.00 - 0.03 X10*3/uL [facility] Lymphocytes Absolute Auto 2.9 1.2 - 4.9 X10*3/uL [facility] Monocytes Absolute Auto 0.6 0.1 - 1.2 X10*3/uL [facility] Eosinophils Absolute Auto 0.1 0.0 - 0.4 X10*3/uL [facility] Basophils Absolute Auto 0.0 0.0 - 0.2 X10*3/uL [facility] NRBC Abs Auto 0.000 0.0 - 0.012 X10*3/uL [facility] 01/29/2025 4:16 AM EST 01/29/2025 4:22 AM EST us Generic External Data Provider LAB BLOOD ORDERAB LES Final Result [facility] [address] [place] [phone] * Comprehensive Metabolic Panel (01/29/2025 4:16 AM EST) Sodium 139 135 - 145 mmol/L [facility] Potassium 4.0 3.3 - 5.1 mmol/L [facility] Comment:Slight Hemolysis.Int erpret result with caution. Chloride 106 96 - 108 mmol/L [facility] Carbon Dioxide 23 22 - 29 mmol/L [facility] Anion Gap 14 12 - 20 [facility] Urea Nitrogen (BUN) 16 9 - 16 mg/dL [facility] Creatinine, Serum 0.72 0.5 - 1.4 mg/dL [facility] Creatinine Clr Calc Pharmacy 134.0 [facility] Comment:Provided height and weight: 167.64 cm,113.3 kg.eGFR (calculated from the MDRD study equation) and eCrCl(calculated from the Cockcroft-Gault equation) are based ondifferent parameters and may not yield comparable results.If eCrCl result is absurd, please check patient'sheight/weight. Estimated Glomerular Filt Rate >60 [facility] Comment:Chronic Kidney Disea se: Estimated GFR < 60 mL/min/1.20k9Hrybgt Kidney Disease: Estimated GFR < 15 mL/min/1.73m2 Glucose 88 60 - 115 mg/dL [facility] Calcium 8.7 8.4 - 10.2 mg/dL [facility] Bilirubin, Total 0.3 0.0 - 1.0 mg/dL [facility] Aspartate Amino Transferase 24 5 - 31 U/L [facility] Comment:Slight Hemolysis.Int erpret result with caution. Alanine Aminotransferase 18 0 - 31 U/L [facility] Total Protein 7.3 6.5 - 8.0 g/dL [facility] Albumin Level 3.8 3.5 - 5.0 g/dL [facility] Alkaline Phosphatase 80 39 - 117 U/L [facility] 01/29/2025 4:16 AM EST 01/29/2025 4:22 AM EST us Generic External Data Provider LAB BLOOD ORDERAB LES Final Result Performing Organization Address City/State/[facility] Co de Phone Number [facility] [address] [place] [phone] * CT Abdomen Pelvis w/o Contrast (01/29/2025 4:12 AM EST) Anatomical Region Laterality Modality Body, Pelvis, Abdomen Computed T omography 01/29/2025 4:12 AM EST Narrative 01/29/2025 4:15 AM EST ? [facility] ?[address] ?[place] [address] ? CT Scan Report ? Signed ? Patient: Colon,Ivis M ?MR#: [id number] ?? [id number] ? : 1985 ?Acct:[id number] ? Age/Sex: 39 / F ?ADM Date: /02/25 ? Loc: HO.ED ? Attending Dr: ? Ordering Physician: Conner Sierra MD ?? Date of Service: 01/29/25 ?? Procedure(s): CT abdomen pelvis wo IV con ?? Accession Number(s): [id number] ? cc: [facility]; Conner Sierra MD ? Report Number: ?? [id number]: Total DLP = ??886.00 mGy-cm ? CLINICAL HISTORY: Left lower quadrant pain? ??Diverticular ? CT abdomen and pelvis without contrast ? Comparison: CT - ABD PELVIS WO CONT [id number] - 03/08/17 21:41 EDT ? Findings: ?? Diffuse esophageal mural thickening, nonspecific. ? The gallbladder and solid organs are within normal limits. No renal ?? stones. ?? Colonic diverticulosis with mural thickening, peridiverticular ?? inflammatory changes and fluid stranding noted in the sigmoid colon, ?? consistent with diverticulitis. No evidence of free air or ?? peridiverticular collections. No bowel obstruction. ?? Fat containing umbilical hernia. ? Large rectal stool burden. ?? Normal appendix. ?? Distended bladder. ?? The bones are intact. ? IMPRESSION: ?? 1. Uncomplicated sigmoid diverticulitis. ?? 2. Distended bladder. ? This document has been electronically signed by: Abimael Ascencio MD on ?? 01/29/2025 04:12:59 ? Dictated By: ?Abimael Ascencio MD ? Signed By: ?<Electronically signed by Abimael Ascencio MD in OV> ?01/29/25 0414 ? DD/ 0412 ? TD/TT: 01/29/25 0412 ? [employer] Account Executive: ? Procedure Note Therese, Image - 01/29/[address] [address] [address] Scan Report Signed Patient: Ivis Bowen MMR#: [id number] : 1985Acct:[id number] Age/Sex: 39 / FADM Date: 01/29/25 Loc: HO.ED Attending Dr: Ordering Physician: Conner Sierra MD Date of Service: 01/29/25 Procedure(s): CT abdomen pelvis wo IV con Accession Number(s): [id number] cc: [facility]; Conner Sierra MD Report Number: [id number]: Total DLP = 886.00 mGy-cm CLINICAL HISTORY: Left lower quadrant pain? Diverticular CT abdomen and pelvis without contrast Comparison: CT - ABD PELVIS WO CONT [id number] - 03/08/17 21:41 EDT Findings: Diffuse esophageal mural thickening, nonspecific. The gallbladder and solid organs are within normal limits. No renal stones. Colonic diverticulosis with mural thickening, peridiverticular inflammatory changes and fluid stranding noted in the sigmoid colon, consistent with diverticulitis. No evidence of free air or peridiverticular collections. No bowel obstruction. Fat containing umbilical hernia. Large rectal stool burden. Normal appendix. Distended bladder. The bones are intact. IMPRESSION: 1. Uncomplicated sigmoid diverticulitis. 2. Distended bladder. This document has been electronically signed by: Abimael Ascencio MD on 01/29/2025 04:12:59 Dictated By: Abimael Ascencio MD Signed By: <Electronically signed by Abimael Ascencio MD in OV> 01/29/25 0414 DD/ TD/TT: 01/29/25 0412 B2B Account Executive: [facility] External Provider IMG CT PROCEDURES Final Result * Urinalysis, Complete, with Reflex to Culture (01/29/2025 1:57 AM EST) Color Urine Yellow [facility] Appearance Urine Clear [facility] PH 6.0 5.0 - 9.0 [facility] Glucose Urine UA Negative Negative mg/dL [facility] Urine Blood Negative Negative [facility] Specific [place] - Urine 1.010 1.005 - 1.025 [facility] Urine Protein Negative Neg-Trace mg/dL [facility] Urine Ketones Negative Negative mg/dL [facility] Nitrite Urine Negative Negative [facility] Leukocyte Esterase Urine Negative Negative [facility] RBC Urine 0-2 0 - 2 /HPF [facility] Urine WBC 0-5 0 - 5 /HPF [facility] Urine Squamous Epithelial Cell 0-2 0 - 2 /HPF [facility] Urine Bacteria None Seen None Seen [facility] Hyaline Casts, Urine 0-2 0 - 2 /LPF [facility] 01/29/2025 1:57 AM EST 01/29/2025 2:02 AM EST Narrative [facility] - 01/29/2025 2:21 AM EST [id number], Clean Catch us Generic External Data Provider LAB URINE ORDERAB LES Final Result Performing Organization Address City/[facility]/ZIP Co de Phone Number [facility] [address] [place] [phone] * HCG, Qualitative, Urine (01/29/2025 1:57 AM EST) Urine NEGATIVE NEGATIVE [facility] Comment:This test was develo ped to detect early . Falsenegative results may occur after the 5th - 7th week ofpregnancy when using this test method. If clinicallyindicated, consider a serum hCG. 01/29/2025 1:57 AM EST 01/29/2025 2:02 AM EST us Generic External Data Provider LAB URINE ORDERAB LES Final Result Performing Organization Address City/[facility]/ZIP Co de Phone Number [facility] [address] [place] [phone] * (ABNORMAL) Lipid Panel, Standard (03/01/2024 11:47 AM EDT) Triglycerides 215(H) <150 mg/dL [facility] Comment:Desirable Triglyceri de: less than 150 mg/dLBorderline High Triglyceride 150-199 mg/dLHigh Triglyceride: 200-499 mg/dLVery High Triglyceride: greater than or equal to 5OO mg/dL Cholesterol 201(H) <200 mg/dL [facility] Comment:Desirable Cholestero l: less than 200 mg/dLBorderline High Cholesterol: 200-239 mg/dLHigh Cholesterol: greater than 239 mg/dL LDL Cholesterol Calculated 96 <100 mg/dL [facility] Comment:Desirable LDL: less than 100 mg/dLNear Optimal/Above Optimal LDL: 110- 129 mg/dLBorderline High LDL: 130-159 mg/dLHigh LDL: 160-189 mg/dLVery High LDL: greater than or equal to 190 mg/dL HDL Cholesterol 62 >40 mg/dL [facility] Comment:Desirable HDL: great er than 40 mg/dL Note: This HDL assay may give artificially low results in patients with liver disease. Blood Venous blood specimen / Unknown 03/01/2024 11:47 AM EDT 03/01/2024 6:56 PM EDT [facility] WAREHOUSE RECEIVER LAB BLOOD ORDERABLES Final Re sult [facility] [address] [place] [phone] * Hepatitis C Antibody (10/02/2022 3:28 [...] detection of this assay. ?? The [employer] HIV Ag/Ab Combo assay result and supplemental assay results should be interpreted in conjunction with the patient's clinical presentation, history and other laboratory results. ??If the results are inconsistent with clinical evidence, additional testing is suggested to confirm the result. Hepatitis B Surface Antigen Negative Negative [facility] 10/02/2022 3:28 PM EDT Angelia Hu HISTORICAL/NON ORDERABLE LABS Fi nal Result CONVERTED [facility]GAC[facility] LAB[facility] from Last 3 Months or Most Recently Relevant to Health Maintenance Insurance [facility] MED DENTAL - HSN PARTIAL (MEDICAID) [facility] [place] Care Teams Carpentry Specialist Relationship Specialty Start Date End Date Jenni Hickey FNP [address] [place] [phone] PCP - General Family Medicine 08/28/21
--- OUTSIDE RECORDS SUMMARY | 2025-02-08 17:34 | XMS_ITS | Encounter Summary ---
Author Organization [employer] Address [address] [facility] [facility] [address] [place] [address] Care Team Providers Care Basic Sciences Dean Name Role Phone Jenni Hickey [facility] Primary Care Provider [phone] Encounter Details Date Type Department Care Team (Late st Contact Info) Description 04/13/2023 Orders Only [facility] [address] [place], [place] [phone] Yolie Wang LPN Social History Tobacco Use [...] on filedocumented in this encounter Care Teams Basic Sciences Dean Relationship Specialty Start Date End Date Jenni Hickey FNP [address] [place] [phone] PCP - General Family Medicine 08/28/21 documented as of this encounter
--- OUTSIDE RECORDS SUMMARY | 2025-02-08 17:34 | XMS_ITS | Encounter Summary ---
Author Organization [employer] Address [address] [facility] 7t [place] [address] Care Team Providers Care Storage Wharfage Clerk Name Role Phone Edelmira [facility] Primary Care Provider [phone] Encounter Details Date Type Department Care Team (Late st Contact Info) Description 01/29/2025 Orders Only GENERIC EXTERNAL DATA DEPARTMENT Provider, Generic External Data Social History Tobacco Use Types Packs/Day Years [...] on file documented as of this encounter Procedures Procedure Name Priority Date/Time Associated Diagnosis Comments CBC WITH AUTO DIFFERENTIAL Routine 01/29/2025 4:16 AM EST COMPREHENSIVE METABOLIC PANEL Routine 01/29/2025 4:[address] ABDOMEN PELVIS WO CONTRAST Routine 01/29/2025 4:12 AM EST URINALYSIS, COMPLETE, WITH REFLEX TO CULTURE Routine 01/29/2025 1:57 AM EST HCG, QL, URINE Routine 01/29/2025 1:57 AM EST documented in this encounter Results * Comprehensive Metabolic Panel (01/29/2025 4:16 AM EST) Sodium 139 135 - 145 mmol/L [facility] Potassium 4.0 3.3 - 5.1 mmol/L [facility] Comment:Slight Hemolysis.Int erpret result with caution. Chloride 106 96 - 108 mmol/L [facility] Carbon Dioxide 23 22 - 29 mmol/L [facility] Anion Gap 14 12 - 20 [facility] Urea Nitrogen (BUN) 16 9 - 16 mg/dL [facility] Creatinine, Serum 0.72 0.5 - 1.4 mg/dL [facility] Creatinine Clr Calc Pharmacy 134.0 [facility] Comment:Provided height and weight: 167.64 cm,113.3 kg.eGFR (calculated from the MDRD study equation) and eCrCl(calculated from the Cockcroft-Gault equation) are based ondifferent parameters and may not yield comparable results.If eCrCl result is absurd, please check patient'sheight/weight. Estimated Glomerular Filt Rate >60 [facility] Comment:Chronic Kidney Disea se: Estimated GFR < 60 mL/min/1.46i5Aagdbw Kidney Disease: Estimated GFR < 15 mL/min/1.73m2 Glucose 88 60 - 115 mg/dL [facility] Calcium 8.7 8.4 - 10.2 mg/dL [facility] Bilirubin, Total 0.3 0.0 - 1.0 mg/dL [facility] Aspartate Amino Transferase 24 5 - 31 U/L [facility] Comment:Slight Hemolysis.Int erpret result with caution. Alanine Aminotransferase 18 0 - 31 U/L [facility] Total Protein 7.3 6.5 - 8.0 g/dL [facility] Albumin Level 3.8 3.5 - 5.0 g/dL [facility] Alkaline Phosphatase 80 39 - 117 U/L [facility] 01/29/2025 4:16 AM EST 01/29/2025 4:22 AM EST us Generic External Data Provider LAB BLOOD ORDERAB LES Final Result [facility] [address] [place] [phone] * (ABNORMAL) CBC auto differential (01/29/2025 4:16 AM EST) White Blood Count 8.9 4.8 - 10.8 X10*3/uL [facility] Red Blood Count 4.16(L) 4.20 - 5.50 X10*6/uL [facility] Hemoglobin 11.4(L) 12.0 - 16.0 g/dl [facility] Hematocrit 34.4(L) 37.0 - 47.0 % [facility] Mean Corpuscular Volume 82.7 80.0 - 98.0 fL [facility] Mean Corpuscular Hemoglobin 27.4 27.0 - 33.0 pg [facility] Mean Corpuscular HGB Conc 33.1 31.0 - 35.0 g/dl [facility] Red Cell Distribution Width 12.7 11.0 - 16.0 % [facility] Platelet Count 173 160 - 400 X10*3/uL [facility] Mean Platelet Volume 11.4 9.4 - 12.3 fL [facility] Neutrophils Percent Auto 59.3 45 - 73 % [facility] Imm Gran Pct Auto 0.6(H) 0.0 - 0.4 % [facility] Lymphocytes Percent Auto 32.3 20 - 40 % [facility] Monocytes Percent Auto 6.8 2 - 11 % [facility] Eosinophils Percent Auto 0.7 0 - 4 % [facility] Basophils Percent Auto 0.3 0 - 2 % [facility] NRBC Pct Auto 0.0 0.0 - 0.2 /100WBC [facility] Neutrophils Absolute Auto 5.3 2.0 - 8.3 x10*3/uL [facility] Imm Gran Abs Auto 0.05(H) 0.00 - 0.03 X10*3/uL [facility] Lymphocytes Absolute Auto 2.9 1.2 - 4.9 X10*3/uL [facility] Monocytes Absolute Auto 0.6 0.1 - 1.2 X10*3/uL [facility] Eosinophils Absolute Auto 0.1 0.0 - 0.4 X10*3/uL [facility] Basophils Absolute Auto 0.0 0.0 - 0.2 X10*3/uL [facility] NRBC Abs Auto 0.000 0.0 - 0.012 X10*3/uL [facility] 01/29/2025 4:16 AM EST 01/29/2025 4:22 AM EST us Generic External Data Provider LAB BLOOD ORDERAB LES Final Result [facility] [address] [place] [address] [phone] * CT Abdomen Pelvis w/o Contrast (01/29/2025 4:12 AM EST) Anatomical Region Laterality Modality Body, Pelvis, Abdomen Computed T omography 01/29/2025 4:12 AM EST Narrative 01/29/2025 4:15 AM EST ? [facility] ?[address] ?[place] [address] ? CT Scan Report ? Signed ? Patient: Colon,Ivis M ?MR#: [id number] ?? [id number] ? : 1985 ?Acct:[id number] ? Age/Sex: 39 / F ?ADM Date: 01/29/25 ? Loc: HO.ED ? Attending Dr: ? Ordering Physician: Conner Sierra MD ?? Date of Service: 01/29/25 ?? Procedure(s): CT abdomen pelvis wo IV con ?? Accession Number(s): [id number] ? cc: [facility]; Conner Sierra MD ? Report Number: ?? [id number]: Total DLP = ??886.00 mGy-cm ? CLINICAL HISTORY: Left lower quadrant pain? ??Diverticular ? CT abdomen and pelvis without contrast ? Comparison: CT - ABD PELVIS WO CONT [id number] - 03/08/17 21:41 EDT ? Findings: ?? [...] DD/ 0412 ? TD/TT: 01/29/25 0412 ? Zinc Plater: ? Procedure Note Donotuseinterpreter, Image - 01/29/[address] [address] [place] Scan Report Signed Patient: Ivis Bowen MMR#: [id number] : 1985Acct:[id number] Age/Sex: 39 / FADM Date: 01/29/25 Loc: HO.ED Attending Dr: Ordering Physician: Conner Sierra MD Date of Service: 01/29/25 Procedure(s): CT abdomen pelvis wo IV con Accession Number(s): [id number] cc: [facility]; Conner Sierra MD Report Number: [id number]: Total DLP = 886.00 mGy-cm CLINICAL HISTORY: Left lower quadrant pain? Diverticular CT abdomen and pelvis without contrast Comparison: CT - ABD PELVIS WO CONT [id number] - 03/08/17 21:41 EDT Findings: Diffuse esophageal [...] Ascencio MD in OV> 01/29/25 0414 DD/ 1 TD/TT: 01/29/25411 Zinc Plater: [facility] External Provider IMG CT PROCEDURES Final Result * Urinalysis, Complete, with Reflex to Culture (01/29/2025 1:57 AM EST) Color Urine Yellow [facility] Appearance Urine Clear [facility] PH 6.0 5.0 - 9.0 [facility] Glucose Urine UA Negative Negative mg/dL [facility] Urine Blood Negative Negative [facility] Specific [place] - Urine 1.010 1.005 - 1.025 [facility] Urine Protein Negative Neg-Trace mg/dL [facility] Urine Ketones Negative Negative mg/dL [facility] Nitrite Urine Negative Negative [facility] Leukocyte Esterase Urine Negative Negative [facility] RBC Urine 0-2 0 - 2 /HPF [facility] Urine WBC 0-5 0 - 5 /HPF [facility] Urine Squamous Epithelial Cell 0-2 0 - 2 /HPF [facility] Urine Bacteria None Seen None Seen [facility] Hyaline Casts, Urine 0-2 0 - 2 /LPF [facility] 01/29/2025 1:57 AM EST 01/29/2025 2:02 AM EST Narrative [facility] - 01/29/2025 2:21 AM EST [id number], Clean Catch us Generic External Data Provider LAB URINE ORDERAB LES Final Result Performing Organization Address [facility]/ZIP Co de Phone Number [facility] [address] [place] [phone] * HCG, Qualitative, Urine (01/29/2025 1:57 AM EST) Urine NEGATIVE NEGATIVE [facility] Comment:This test was develo ped to detect early . Falsenegative results may occur after the 5th - 7th week ofpregnancy when using this test method. If clinicallyindicated, consider a serum hCG. 01/29/2025 1:57 AM EST 01/29/2025 2:02 AM EST us Generic External Data Provider LAB URINE ORDERAB LES Final Result Performing Organization Address [facility]/ZIP Co de Phone Number [facility] [address] [place] [phone] documented in this encounter Visit Diagnoses Not on filedocumented in this encounter Care Teams Storage Wharfage Clerk Relationship Specialty Start Date End Date Jenni Hickey FNP [address] [place] [phone] PCP - General Family Medicine 08/28/21 documented as of this encounter
--- OUTSIDE RECORDS SUMMARY | 2025-02-08 17:34 | XMS_ITS | Encounter Summary ---
Author Organization [employer] [facility] Address [address] [place] [address] 7t [place] [address] Care Team Providers Care Internal Recruiter Name Role Phone Jenni Hickey [facility] Primary Care Provider [phone] Encounter Details Date Type Department Care Team (Latest Contact Info) Description 09/30/2019 Abstract [facility] Dental, Provider, DDS Social History [...] on filedocumented in this encounter Care Teams Internal Recruiter Relationship Specialty Start Date End Date Jenni Hickey FNP [address] [place] [phone] PCP - General Family Medicine 08/28/21 documented as of this encounter
--- OUTSIDE RECORDS SUMMARY | 2025-02-08 17:34 | XMS_ITS | Encounter Summary ---
Author Organization [employer] Address [address] [facility] 7t [place] [address] Care Team Providers Care Wildlife Ecologist Name Role Phone [facility] Primary Care Provider [phone] Reason for Visit * Reason Comments Med Refill Encounter Details Date Type Department Care Team ([facility] st Contact Info) Description 02/04/2025 Refill [facility] [address] [place], [place] [phone] [facility] [address] [place] [address] Essential hypertension Social History Tobacco Use Types Packs/Day Years [...] of this encounter Visit Diagnoses Diagnosis Essential hypertension Unspecified essential hypertension documented in this encounter Care Teams Wildlife Ecologist Relationship Specialty Start Date End Date Jenni Hickey FNP [address] [place] [phone] PCP - General Family Medicine 08/28/21 documented as of this encounter
--- OUTSIDE RECORDS SUMMARY | 2025-02-08 17:34 | XMS_ITS | Encounter Summary ---
Author Organization [employer] [facility] Address [address] [place] [address] 7t [place] [address] Care Team Providers Care Direct Mail Marketer Name Role Phone Edelmira Jenni [facility] Primary Care Provider Encounter Details Date Type Department Care Team (Late st Contact Info) Description 10/30/2022 Orders Only [facility] [address] [place], [place] [phone] Jenni Hickey FNP [address] [place] [address] Social History Tobacco Use Types Packs/Day Years [...] on filedocumented in this encounter Care Teams Direct Mail Marketer Relationship Specialty Start Date End Date Jenni Hickey FNP [address] [place] [address] PCP - General Family Medicine 08/28/21 documented as of this encounter
--- OUTSIDE RECORDS SUMMARY | 2025-02-08 17:34 | XMS_ITS | Encounter Summary ---
Author Organization [employer] [facility] Address [address] [place] [address] 7t [place] [address] Care Team Providers Care Dishwasher Preparer Name Role Phone Jenni Hickey [facility] Primary Care Provider [phone] Encounter Details Date Type Department Care Team (Latest Contact Info) Description 03/03/2022 Abstract [facility] CONVERSIONS Dental, Provider, DDS Social History [...] on filedocumented in this encounter Care Teams Dishwasher Preparer Relationship Specialty Start Date End Date Jenni Hickey FNP [address] [place] [phone] PCP - General Family Medicine 08/28/21 documented as of this encounter
== END 2025-02-09 08:00 | disposition home or self-care (01) ==
LOC: HO.HWS 14:58
PROVIDERS: Visit Provider Advanced Practice Midwife
DX: Z20.2 Contact with and (suspected) exposure to infections with a predominantly sexual mode of transmission (principal)
CPT/HCPCS: 99213

== ENCOUNTER 2025-02-08 14:58 | Outpatient (REF) | payer OTHER, SELFPAY ==
--- OUTSIDE RECORDS SUMMARY | 2025-02-08 18:25 | XMS_ITS | Encounter Summary ---
Author Organization [employer] Address [address] [facility] 7t [place] [address] Care Team Providers Care Video Camera Operator Name Role Phone Jenni Hickey [facility] Primary Care Provider [phone] Encounter Details Date Type Department Care Team (Late st Contact Info) Description 04/13/2023 Orders Only [facility] [address] [place], [place] [phone] Yolie Wang LPN Social History Tobacco Use [...] on filedocumented in this encounter Care Teams Video Camera Operator Relationship Specialty Start Date End Date Jenni Hickey FNP [address] [place] [phone] PCP - General Family Medicine 08/28/21 documented as of this encounter
--- OUTSIDE RECORDS SUMMARY | 2025-02-08 18:25 | XMS_ITS | Encounter Summary ---
Author Organization [employer] Address [address] [facility] 7t [place] [address] Care Team Providers Care Oil And Gas Well Treatment Operator Name Role Phone [facility] Primary Care Provider [phone] Reason for Visit * Reason Comments Med Refill Encounter Details Date Type Department Care Team ([facility] st Contact Info) Description 02/04/2025 Refill [facility] [address] [place], [place] [phone] [facility] [address] [place] [address] Essential hypertension Social History Tobacco Use Types [...] hypertension documented in this encounter Care Teams Oil And Gas Well Treatment Operator Relationship Specialty Start Date End Date Jenni Hickey FNP [address] [place] [phone] PCP - General Family Medicine 08/28/21 documented as of this encounter
--- OUTSIDE RECORDS SUMMARY | 2025-02-08 18:25 | XMS_ITS | Encounter Summary ---
Author Organization [employer] [facility] Address [address] [place] [address] 7t [place] [address] Care Team Providers Care Journeyman Welder Name Role Phone Edelmira Jenni [facility] Primary Care Provider [phone] Encounter Details Date Type Department Care Team (Late st Contact Info) Description 10/30/2022 Orders Only [facility] [address] [place], [place] [phone] Jenni Hickey FNP [address] [place] [address] Social History Tobacco Use Types Packs/Day Years [...] on filedocumented in this encounter Care Teams Journeyman Welder Relationship Specialty Start Date End Date Jenni Hickey FNP [address] [place] [address] PCP - General Family Medicine 08/28/21 documented as of this encounter
--- OUTSIDE RECORDS SUMMARY | 2025-02-08 18:25 | XMS_ITS | Encounter Summary ---
Author Organization [employer] [facility] Address [address] [place] [address] [address] [place] [address] Care Team Providers Care Purification Operator Helper Name Role Phone Jenni Hickey [facility] Primary Care Provider Encounter Details Date Type Department Care Team (Late st Contact Info) Description 10/30/2022 Orders Only [facility] [address] [place] [address] Jenni Hickey FNP [address] [place] [address] Witnessed episode of apnea (Primary Dx) Social [...] Primary documented in this encounter Care Teams Purification Operator Helper Relationship Specialty Start Date End Date Jenni Hickey FNP [address] [place] [address] PCP - General Family Medicine 08/28/21 documented as of this encounter
--- OUTSIDE RECORDS SUMMARY | 2025-02-08 18:25 | XMS_ITS | Encounter Summary ---
Author Organization [employer] [facility] Address [address] [place] [address] 7t [place] [address] Care Team Providers Care Inspector Structural Bonding Name Role Phone Jenni Hickey [facility] Primary Care Provider Encounter Details Date Type Department Care Team (Latest Contact Info) Description 09/30/2019 Abstract [facility] CONVERSIONS Dental, Provider, DDS Social History [...] on filedocumented in this encounter Care Teams Inspector Structural Bonding Relationship Specialty Start Date End Date Jenni Hickey FNP [address] [place] [phone] PCP - General Family Medicine 08/28/21 documented as of this encounter
--- OUTSIDE RECORDS SUMMARY | 2025-02-08 18:25 | XMS_ITS | Encounter Summary ---
Author Organization [employer] Address [address] [facility] [address] [place] [address] Care Team Providers Care Continuous Mining Machine Lode Miner Name Role Phone Edelmira [facility] Primary Care Provider [phone] Encounter Details Date Type Department Care Team [...] EST) Sodium 139 135 - 145 mmol/L [facility] Potassium 4.0 3.3 - 5.1 mmol/L [facility] Comment:Slight Hemolysis.Int erpret result with caution. Chloride 106 96 - 108 mmol/L [facility] Carbon Dioxide 23 22 - 29 mmol/L [facility] Anion Gap 14 12 - 20 [facility] Urea Nitrogen (BUN) 16 9 - 16 mg/dL [facility] Creatinine, Serum 0.72 0.5 - 1.4 mg/dL [facility] Creatinine Clr Calc Pharmacy 134.0 [facility] Comment:Provided height and weight: 167.64 cm,113.3 kg.eGFR (calculated from the MDRD study equation) and eCrCl(calculated from the Cockcroft-Gault equation) are based ondifferent parameters and may not yield comparable results.If eCrCl result is absurd, please check patient'sheight/weight. Estimated Glomerular Filt Rate >60 [facility] Comment:Chronic Kidney Disea se: Estimated GFR < 60 mL/min/1.85x0Qumwuo Kidney Disease: Estimated GFR < 15 mL/min/1.73m2 Glucose 88 60 - 115 mg/dL [facility] Calcium 8.7 8.4 - 10.2 mg/dL [facility] Bilirubin, Total 0.3 0.0 - 1.0 mg/dL [facility] Aspartate Amino Transferase 24 5 - 31 U/L [facility] Comment:Slight Hemolysis.Int erpret result with caution. Alanine Aminotransferase 18 0 - 31 U/L [facility] Total Protein 7.3 6.5 - 8.0 g/dL [facility] Albumin Level 3.8 3.5 - 5.0 g/dL [facility] Alkaline Phosphatase 80 39 - 117 U/L [facility] 01/29/2025 4:16 AM EST 01/29/2025 4:22 AM EST us Generic External Data Provider LAB BLOOD ORDERAB LES Final Result [facility] [address] [place] [phone] * (ABNORMAL) CBC auto differential (01/29/2025 4:16 AM EST) White Blood Count 8.9 4.8 - 10.8 X10*3/uL [facility] Red Blood Count 4.16(L) 4.20 - 5.50 X10*6/uL [facility] Hemoglobin 11.4(L) 12.0 - 16.0 g/dl [facility] Hematocrit 34.4(L) 37.0 - 47.0 % [facility] Mean Corpuscular Volume 82.7 80.0 - 98.0 fL [facility] Mean Corpuscular Hemoglobin 27.4 27.0 - 33.0 pg [facility] Mean Corpuscular HGB Conc 33.1 31.0 - 35.0 g/dl [facility] Red Cell Distribution Width 12.7 11.0 - 16.0 % [facility] Platelet Count 173 160 - 400 X10*3/uL [facility] Mean Platelet Volume 11.4 9.4 - 12.3 fL [facility] Neutrophils Percent Auto 59.3 45 - 73 % [facility] Imm Gran Pct Auto 0.6(H) 0.0 - 0.4 % [facility] Lymphocytes Percent Auto 32.3 20 - 40 % [facility] Monocytes Percent Auto 6.8 2 - 11 % [facility] Eosinophils Percent Auto 0.7 0 - 4 % [facility] Basophils Percent Auto 0.3 0 - 2 % [facility] NRBC Pct Auto 0.0 0.0 - 0.2 /100WBC [facility] Neutrophils Absolute Auto 5.3 2.0 - 8.3 x10*3/uL [facility] Imm Gran Abs Auto 0.05(H) 0.00 - 0.03 X10*3/uL [facility] Lymphocytes Absolute Auto 2.9 1.2 - 4.9 X10*3/uL [facility] Monocytes Absolute Auto 0.6 0.1 - 1.2 X10*3/uL [facility] Eosinophils Absolute Auto 0.1 0.0 - 0.4 X10*3/uL [facility] Basophils Absolute Auto 0.0 0.0 - 0.2 X10*3/uL [facility] NRBC Abs Auto 0.000 0.0 - 0.012 X10*3/uL [facility] 01/29/2025 4:16 AM EST 01/29/2025 4:22 AM EST us Generic External Data Provider LAB BLOOD ORDERAB LES Final Result [facility] [address] [place] [address] [phone] * CT Abdomen Pelvis w/o Contrast (01/29/2025 4:12 AM EST) Anatomical Region Laterality Modality Body, Pelvis, Abdomen Computed T omography 01/29/2025 4:12 AM EST Narrative 01/29/2025 4:15 AM EST ? [facility] ?[address] ?[place] [address] ? CT Scan Report ? Signed ? Patient: Colon,Ivis M ?MR#: [id number] ?? [id number] ? : 1985 ?Acct:[id number] ? Age/Sex: 39 / F ?ADM Date: 01/29/25 ? Loc: HO.ED ? Attending Dr: ? Ordering Physician: Conner Sierra MD ?? Date of Service: 01/29/25 ?? Procedure(s): CT abdomen pelvis wo IV con ?? Accession Number(s): [id number] ? cc: [facility]; Conner Sierra MD ? Report Number: ?? [id number]: Total DLP = ??886.00 mGy-cm ? CLINICAL HISTORY: Left lower quadrant pain? ??Diverticular ? CT abdomen and pelvis without contrast ? Comparison: CT - ABD PELVIS WO CONT [id number] - 03/08/17 21:41 EDT ? Findings: ?? [...] DD/ 0412 ? TD/TT: 01/29/25 0412 ? Sat Act Instructor: ? Procedure Note Donotuseinterpreter, Image - 01/29/[address] [address] Scan Report Signed Patient: Ivis Bowen MMR#: [id number] : 1985Acct:[id number] Age/Sex: 39 / FADM Date: 01/29/25 Loc: HO.ED Attending Dr: Ordering Physician: Conner Sierra MD Date of Service: 01/29/25 Procedure(s): CT abdomen pelvis wo IV con Accession Number(s): [id number] cc: [facility]; Conner Sierra MD Report Number: [id number]: Total DLP = 886.00 mGy-cm CLINICAL HISTORY: Left lower quadrant pain? Diverticular CT abdomen and pelvis without contrast Comparison: CT - ABD PELVIS WO CONT [id number] - 03/08/17 21:41 EDT Findings: Diffuse esophageal [...] OV> 01/29/25 0414 DD/ 1 TD/TT: 01/29/25411 Sat Act Instructor: [facility] External Provider IMG CT PROCEDURES Final Result * Urinalysis, Complete, with Reflex to Culture (01/29/2025 1:57 AM EST) Color Urine Yellow [facility] Appearance Urine Clear [facility] PH 6.0 5.0 - 9.0 [facility] Glucose Urine UA Negative Negative mg/dL [facility] Urine Blood Negative Negative [facility] Specific [place] - Urine 1.010 1.005 - 1.025 [facility] Urine Protein Negative Neg-Trace mg/dL [facility] Urine Ketones Negative Negative mg/dL [facility] Nitrite Urine Negative Negative [facility] Leukocyte Esterase Urine Negative Negative [facility] RBC Urine 0-2 0 - 2 /HPF [facility] Urine WBC 0-5 0 - 5 /HPF [facility] Urine Squamous Epithelial Cell 0-2 0 - 2 /HPF [facility] Urine Bacteria None Seen None Seen [facility] Hyaline Casts, Urine 0-2 0 - 2 /LPF [facility] 01/29/2025 1:57 AM EST 01/29/2025 2:02 AM EST Narrative [facility] - 01/29/2025 2:21 AM EST [id number], Clean Catch us Generic External Data Provider LAB URINE ORDERAB LES Final Result Performing Organization Address [facility]/ZIP Co de Phone Number [facility] [address] [place] [phone] * HCG, Qualitative, Urine (01/29/2025 1:57 AM EST) Urine NEGATIVE NEGATIVE [facility] Comment:This test was develo ped to detect early . Falsenegative results may occur after the 5th - 7th week ofpregnancy when using this test method. If clinicallyindicated, consider a serum hCG. 01/29/2025 1:57 AM EST 01/29/2025 2:02 AM EST us Generic External Data Provider LAB URINE ORDERAB LES Final Result Performing Organization Address [facility]/ZIP Co de Phone Number [facility] [address] [place] [phone] documented in this encounter Visit Diagnoses Not on filedocumented in this encounter Care Teams Continuous Mining Machine Lode Miner Relationship Specialty Start Date End Date Jenni Hickey FNP [address] [place] [phone] PCP - General Family Medicine 08/28/21 documented as of this encounter
--- OUTSIDE RECORDS SUMMARY | 2025-02-08 18:25 | XMS_ITS | Clinical Summary ---
Author Organization [employer] Address [address] [facility] [address]t [place] [address] Care Team Providers Care Derrick Man Name Role Phone [facility] Primary Care Provider [phone] Allergies No known active allergies Medications Tirzepatide-Kulwinder ght Management (Zepbound) 2.5 MG/0.5ML solution auto-injectorIn dications:Class 3 severe obesity due to excess calories with serious comorbidity and body mass index (BMI) of 40.0 to 44.9 in adult (CMS/[facility]) Inject 0.5 mL (2.5 mg) under the [...] Seen by cards 04/2022 (Dr. Curran at [place] [facility]) for f/u re 2017 echo that showed grade II diastolic dysfunction. Per visit note patient dx with stable mild cardiomegaly with preserved EF and advised to f/u PRN. Repeat echo 04/2022 unremarkable Obstructive sleep apnea 04/27/2023 Hx of total hysterectomy 04/27/2023 Overview (04/27/2023): S/p hysterectomy (fibroids) at [facility] 08/2020. - Routine ALLERGY SPECIALIST care through [facility] maintenance 04/27/2023 Overview (04/27/2023): Mammo: Routine Pap: s/p total hysterectomy. Followed by [facility]. Routine paps d/c C-scope: Routine age 45 BMD: Routine Vision: Referred to [facility] eye care 03/2023 Dental: Established with [facility] Essential hypertension 04/17/2023 Overview (04/27/2023): [...] Type Department Care Team Description 02/04/2025 Refill [facility] [place] [address] Jenni Hickey FNP Essential hypertension 01/29/2025 Orders Only GENERIC EXTERNAL DATA DEPARTMENT Provider, Generic External Data 01/03/2025 1:00 PM EST Office Visit [facility] [address] Janine Parker Dental plaque (Primary Dx); Dental calculus; Encounter for dental examination 01/02/2025 1:45 PM EST Office Visit [facility] [place] [address] Jenni Hickey FNP Essential hypertension (Primary Dx); Class 3 severe obesity due to excess calories with serious comorbidity and body mass index (BMI) of 40.0 to 44.9 in adult (CMS/[facility]); Arthralgia of both hands; Dietary counseling; Exercise counseling 01/02/2025 Travel 12/30/2024 Telephone [facility] [place] [address] Jenni Hickey FNP chart prep 12/20/2024 Telephone [facility] [place] [address] Jenni Hickey FNP Med Refill 12/02/2024 Telephone [facility] [place] [address] Jenni Hickey FNP Medication Question 11/25/2024 Telephone [facility] [place] [address] Jenni Hickey FNP Prior Authorization ([facility] Request: Zepbound) 11/25/2024 Telephone [facility] [place] [address] Dominga Tadeo RN 11/16/2024 3:15 PM EST Telemedicine [facility] [place] [address] Jenni Hickey FNP Class 3 severe obesity [...] Blood Count 8.9 4.8 - 10.8 X10*3/uL [facility] Red Blood Count 4.16(L) 4.20 - 5.50 X10*6/uL [facility] Hemoglobin 11.4(L) 12.0 - 16.0 g/dl [facility] Hematocrit 34.4(L) 37.0 - 47.0 % [facility] Mean Corpuscular Volume 82.7 80.0 - 98.0 fL [facility] Mean Corpuscular Hemoglobin 27.4 27.0 - 33.0 pg [facility] Mean Corpuscular HGB Conc 33.1 31.0 - 35.0 g/dl [facility] Red Cell Distribution Width 12.7 11.0 - 16.0 % [facility] Platelet Count 173 160 - 400 X10*3/uL [facility] Mean Platelet Volume 11.4 9.4 - 12.3 fL [facility] Neutrophils Percent Auto 59.3 45 - 73 % [facility] Imm Gran Pct Auto 0.6(H) 0.0 - 0.4 % [facility] Lymphocytes Percent Auto 32.3 20 - 40 % [facility] Monocytes Percent Auto 6.8 2 - 11 % [facility] Eosinophils Percent Auto 0.7 0 - 4 % [facility] Basophils Percent Auto 0.3 0 - 2 % [facility] NRBC Pct Auto 0.0 0.0 - 0.2 /100WBC [facility] Neutrophils Absolute Auto 5.3 2.0 - 8.3 x10*3/uL [facility] Imm Gran Abs Auto 0.05(H) 0.00 - 0.03 X10*3/uL [facility] Lymphocytes Absolute Auto 2.9 1.2 - 4.9 X10*3/uL [facility] Monocytes Absolute Auto 0.6 0.1 - 1.2 X10*3/uL [facility] Eosinophils Absolute Auto 0.1 0.0 - 0.4 X10*3/uL [facility] Basophils Absolute Auto 0.0 0.0 - 0.2 X10*3/uL [facility] NRBC Abs Auto 0.000 0.0 - 0.012 X10*3/uL [facility] 01/29/2025 4:16 AM EST 01/29/2025 4:22 AM EST us Generic External Data Provider LAB BLOOD ORDERAB LES Final Result [facility] [address] [place] [phone] * Comprehensive Metabolic Panel (01/29/2025 4:16 AM EST) Sodium 139 135 - 145 mmol/L [facility] Potassium 4.0 3.3 - 5.1 mmol/L [facility] Comment:Slight Hemolysis.Int erpret result with caution. Chloride 106 96 - 108 mmol/L [facility] Carbon Dioxide 23 22 - 29 mmol/L [facility] Anion Gap 14 12 - 20 [facility] Urea Nitrogen (BUN) 16 9 - 16 mg/dL [facility] Creatinine, Serum 0.72 0.5 - 1.4 mg/dL [facility] Creatinine Clr Calc Pharmacy 134.0 [facility] Comment:Provided height and weight: 167.64 cm,113.3 kg.eGFR (calculated from the MDRD study equation) and eCrCl(calculated from the Cockcroft-Gault equation) are based ondifferent parameters and may not yield comparable results.If eCrCl result is absurd, please check patient'sheight/weight. Estimated Glomerular Filt Rate >60 [facility] Comment:Chronic Kidney Disea se: Estimated GFR < 60 mL/min/1.51e7Jfvykb Kidney Disease: Estimated GFR < 15 mL/min/1.73m2 Glucose 88 60 - 115 mg/dL [facility] Calcium 8.7 8.4 - 10.2 mg/dL [facility] Bilirubin, Total 0.3 0.0 - 1.0 mg/dL [facility] Aspartate Amino Transferase 24 5 - 31 U/L [facility] Comment:Slight Hemolysis.Int erpret result with caution. Alanine Aminotransferase 18 0 - 31 U/L [facility] Total Protein 7.3 6.5 - 8.0 g/dL [facility] Albumin Level 3.8 3.5 - 5.0 g/dL [facility] Alkaline Phosphatase 80 39 - 117 U/L [facility] 01/29/2025 4:16 AM EST 01/29/2025 4:22 AM EST us Generic External Data Provider LAB BLOOD ORDERAB LES Final Result Performing Organization Address City/State/[facility] Co de Phone Number [facility] [address] [place] [phone] * CT Abdomen Pelvis w/o Contrast (01/29/2025 4:12 AM EST) Anatomical Region Laterality Modality Body, Pelvis, Abdomen Computed T omography 01/29/2025 4:12 AM EST Narrative 01/29/2025 4:15 AM EST ? [facility] ?[address] ?[place] [address] ? CT Scan Report ? Signed ? Patient: Colon,Ivis M ?MR#: [id number] ?? 288 ? : 1985 ?Acct:[id number] ? Age/Sex: 39 / F ?ADM Date: /02/25 ? Loc: HO.ED ? Attending Dr: ? Ordering Physician: Conner Sierra MD ?? Date of Service: 01/29/25 ?? Procedure(s): CT abdomen pelvis wo IV con ?? Accession Number(s): [id number] ? cc: [facility]; Conner Sierra MD ? Report Number: ?? [id number]: Total DLP = ??886.00 mGy-cm ? CLINICAL HISTORY: Left lower quadrant pain? ??Diverticular ? CT abdomen and pelvis without contrast ? Comparison: CT - ABD PELVIS WO CONT [id number] - 03/08/17 21:41 EDT ? Findings: ?? [...] DD/ 0412 ? TD/TT: 01/29/25 0412 ? Cleaning Machine Operator: ? Procedure Note Therese, Image - 01/29/[address] [address] [address] Scan Report Signed Patient: Ivis Bowen MMR#: [id number] : 1985Acct:[id number] Age/Sex: 39 / FADM Date: 01/29/25 Loc: HO.ED Attending Dr: Ordering Physician: Conner Sierra MD Date of Service: 01/29/25 Procedure(s): CT abdomen pelvis wo IV con Accession Number(s): [id number] cc: [facility]; Conner Sierra MD Report Number: [id number]: Total DLP = 886.00 mGy-cm CLINICAL HISTORY: Left lower quadrant pain? Diverticular CT abdomen and pelvis without contrast Comparison: CT - ABD PELVIS WO CONT [id number] - 03/08/17 21:41 EDT Findings: Diffuse esophageal [...] OV> 01/29/25 0414 DD/ TD/TT: 01/29/25 0412 Cleaning Machine Operator: [facility] External Provider IMG CT PROCEDURES Final Result * Urinalysis, Complete, with Reflex to Culture (01/29/2025 1:57 AM EST) Color Urine Yellow [facility] Appearance Urine Clear [facility] PH 6.0 5.0 - 9.0 [facility] Glucose Urine UA Negative Negative mg/dL [facility] Urine Blood Negative Negative [facility] Specific [place] - Urine 1.010 1.005 - 1.025 [facility] Urine Protein Negative Neg-Trace mg/dL [facility] Urine Ketones Negative Negative mg/dL [facility] Nitrite Urine Negative Negative [facility] Leukocyte Esterase Urine Negative Negative [facility] RBC Urine 0-2 0 - 2 /HPF [facility] Urine WBC 0-5 0 - 5 /HPF [facility] Urine Squamous Epithelial Cell 0-2 0 - 2 /HPF [facility] Urine Bacteria None Seen None Seen [facility] Hyaline Casts, Urine 0-2 0 - 2 /LPF [facility] 01/29/2025 1:57 AM EST 01/29/2025 2:02 AM EST Narrative [facility] - 01/29/2025 2:21 AM EST [id number], Clean Catch us Generic External Data Provider LAB URINE ORDERAB LES Final Result Performing Organization Address City/[facility]/ZIP Co de Phone Number [facility] [address] [place] [phone] * HCG, Qualitative, Urine (01/29/2025 1:57 AM EST) Urine NEGATIVE NEGATIVE [facility] Comment:This test was develo ped to detect early . Falsenegative results may occur after the 5th - 7th week ofpregnancy when using this test method. If clinicallyindicated, consider a serum hCG. 01/29/2025 1:57 AM EST 01/29/2025 2:02 AM EST us Generic External Data Provider LAB URINE ORDERAB LES Final Result Performing Organization Address City/[facility]/ZIP Co de Phone Number [facility] [address] [place] [phone] * (ABNORMAL) Lipid Panel, Standard (03/01/2024 11:47 AM EDT) Triglycerides 215(H) <150 mg/dL [facility] Comment:Desirable Triglyceri de: less than 150 mg/dLBorderline High Triglyceride 150-199 mg/dLHigh Triglyceride: 200-499 mg/dLVery High Triglyceride: greater than or equal to 5OO mg/dL Cholesterol 201(H) <200 mg/dL [facility] Comment:Desirable Cholestero l: less than 200 mg/dLBorderline High Cholesterol: 200-239 mg/dLHigh Cholesterol: greater than 239 mg/dL LDL Cholesterol Calculated 96 <100 mg/dL [facility] Comment:Desirable LDL: less than 100 mg/dLNear Optimal/Above Optimal LDL: 110- 129 mg/dLBorderline High LDL: 130-159 mg/dLHigh LDL: 160-189 mg/dLVery High LDL: greater than or equal to 190 mg/dL HDL Cholesterol 62 >40 mg/dL [facility] Comment:Desirable HDL: great er than 40 mg/dL Note: This HDL assay may give artificially low results in patients with liver disease. Blood Venous blood specimen / Unknown 03/01/2024 11:47 AM EDT 03/01/2024 6:56 PM EDT [facility] CUSHION ASSEMBLER LAB BLOOD ORDERABLES Final Re sult [facility] [address] [place] [phone] * Hepatitis C Antibody (10/02/2022 3:28 [...] detection of this assay. ?? [employer] HIV Ag/Ab Combo assay result and supplemental [...] Most Recently Relevant to Health Maintenance Insurance [facility] PARTIAL (MEDICAID) [facility] [place] Care Teams Derrick Man Relationship Specialty Start Date End Date Jenni Hickey FNP [address] [place] [phone] PCP - General Family Medicine 08/28/21
--- OUTSIDE RECORDS SUMMARY | 2025-02-08 18:25 | XMS_ITS | Encounter Summary ---
Author Organization [employer] [facility] Address [address] [place] [address] [address] [place] [address] Care Team Providers Care Washcoat Wiper Name Role Phone Jenni Hickey [facility] Primary Care Provider [phone] Encounter Details Date Type Department Care Team (Latest Contact Info) Description 03/03/2022 Abstract [facility] CONVERSIONS Dental, Provider, DDS Social History [...] on filedocumented in this encounter Care Teams Washcoat Wiper Relationship Specialty Start Date End Date Jenni Hickey FNP [address] [place] [phone] PCP - General Family Medicine 08/28/21 documented as of this encounter
[2025-02-09 03:49] LABS: Syphilis Screen Nonreactive (Nonreactive)
[2025-02-09 04:05] LABS: HBc Num1 0.06 S/CO (0.00-0.79); HIV AB/AG Nonreactive (Nonreactive); HIV Num 1 0.12 S/CO (0.00-0.99); Hepatitis B Core Antibody Nonreactive (Nonreactive); ~HepC Num1 0.11 S/CO (0.00-0.79); ~Hepatitis C Antibody Nonreactive (Nonreactive)
[2025-02-09 05:32] LABS: CT PCR NOT DETECTED (Not Detect.); NG PCR NOT DETECTED (Not Detect.)
[2025-02-09 08:52] LABS: Bacterial Vaginosis PCR POSITIVE (Negative); Candida Group PCR NOT DETECTED (Not Detect); Candida glab krusei PCR NOT DETECTED (Not Detect); Trichomonas vaginalis PCR NOT DETECTED (Not Detect)
== END 2025-02-08 14:59 | disposition home or self-care (01) ==
LOC: HO.LAB 14:58
PROVIDERS: Visit Provider Advanced Practice Midwife
DX: Z20.2 Contact with and (suspected) exposure to infections with a predominantly sexual mode of transmission (principal)
CPT/HCPCS: 81515; 86704; 86780; 86803; 87389; 87491; 87591; 99212

== ENCOUNTER 2025-02-08 15:48 | Outpatient (REF) | payer OTHER, SELFPAY | END 2025-02-08 15:49 | disposition home or self-care (01) | LOC: HO.LNP 15:48 | PROVIDERS: Visit Provider Advanced Practice Midwife | DX: Z13.89 Encounter for screening for other disorder (principal) ==

== ENCOUNTER 2025-02-22 03:36 | Emergency (ER) | payer OTHER, SELFPAY ==
--- NOTE | ~2025-02-22 | XR_ITS ---
CLINICAL HISTORY: coughing 1 view chest x-ray. Comparison: CR/WV/SR - XR CHEST 2V - 10/08/2023 10:44 PM EST Findings: No consolidation, pneumothorax, or effusion. Heart size is at the upper limits of normal. Impression: 1. No acute cardiopulmonary process. No focal pulmonary consolidation. This document has been electronically signed by: Shaq Bui MD on 02/22/2025 04:50:36
[2025-02-22 03:41] VITALS: BP 135/85; PULSE 76; RESP 18; TEMP 36.9; O2SAT 98; BMI 40.3
[2025-02-22 03:50] LABS: Basophils Percent Auto 0.2 % (0-2); Eosinophils Absolute Auto 0.1 X10*3/uL (0.0-0.4); Eosinophils Percent Auto 1.4 % (0-4); Hematocrit 33.3 % (37.0-47.0); Imm Gran Abs Auto 0.03 X10*3/uL (0.00-0.03); Imm Gran Pct Auto 0.7 % (0.0-0.4); Lymphocytes Absolute Auto 1.4 X10*3/uL (1.2-4.9); Lymphocytes Percent Auto 31.6 % (20-40); MANUAL DIFF FLAG NO; Mean Corpuscular Hemoglobin 27.2 pg (27.0-33.0); Mean Corpuscular Volume 82.2 fL (80.0-98.0); Mean Platelet Volume 10.4 fL (9.4-12.3); Monocytes Absolute Auto 0.7 X10*3/uL (0.1-1.2); Monocytes Percent Auto 15.4 % (2-11); Neutrophils Absolute Auto 2.2 x10*3/uL (2.0-8.3); Neutrophils Percent Auto 50.7 % (45-73); Platelet Count 142 X10*3/uL (160-400); Red Blood Count 4.05 X10*6/uL (4.20-5.50); White Blood Count 4.3 X10*3/uL (4.8-10.8)
--- NOTE | 2025-02-22 04:06 | ED.GENADULT ---
HPI - General Adult General Chief complaint: General Medical Stated complaint: resp symptoms Time Seen by Provider: 02/22/25 03:41 Source: patient Mode of arrival: ambulatory Limitations: no limitations History of Present Illness ED Provider: Dr. Elisabet Lott HPI narrative: Patient comes to the emergency room complaining of couple of days of flu-like symptoms, including chills body aches coughing headache. Patient denies shortness of breath. Patient states her chest and back hurt from coughing so much. Patient denies any known sick contacts. Related Data Home Medications ?Medication ?Instructions ?Recorded ?Confirmed losartan 50 mg tablet 50 mg PO DAILY 10/02/22 10/02/22 Previous Rx's ?Medication ?Instructions ?Recorded metronidazole 0.75 % (37.5 mg/5 1 appful vaginal DAILY 5 days #70 02/09/25 gram) vaginal gel grams codeine 10 mg-guaifenesin 100 mg/5 5 ml PO Q6H PRN cough #118 mL 02/22/25 mL oral liquid ibuprofen 600 mg tablet 600 mg PO TID PRN fever or pain 02/22/25 #20 tabs oseltamivir 75 mg capsule (Tamiflu) 75 mg PO BID 5 days #10 caps 02/22/25 Allergies Allergy/AdvReac Type Severity Reaction Status Date / Time No Known Allergies Allergy Mild UNKNOWN Verified 02/22/25 03:43 Review of Systems Review of Systems: Constitutional : No Weight loss, complaining of fever chills fatigue and generalized malaise ENT/Mouth : No Hearing loss, No Ear Pain, No Nasal Congestion, No Sinus Pain, No Hoarseness, No sore throat, No Rhinorrhea, No Swallowing Difficulty Eyes: No Eye Pain, No Swelling, No Redness, No Foreign Body, No Discharge, No Vision Changes Cardiovascular : No Chest Pain, No SOB, No Dyspnea on Exertion, No Orthopnea, No Edema, No Palpitations Respiratory : Complaining of cough with sputum, no wheezing no significant shortness of breath Gastrointestinal : No Nausea, No Vomiting, No Diarrhea, No Constipation, No abdominal Pain, No Hematochezia, No Melena Genitourinary : no irregular bleeding, No Dysuria, No Urinary Frequency, No Hematuria, No Urinary Incontinence, No Urgency, No Flank Pain, No Urinary Flow Changes, No Hesitancy Musculoskeletal : No joint pain, No Myalgias, No Joint Swelling Skin : No Skin Lesions, No rash Neuro : No Weakness, No Numbness, No Paresthesias, No Loss of Consciousness, No Dizziness, No Headache Psych : No Anxiety/Panic, No Depression, No SI/HI/AH/VH, No Social Issues, Heme/Lymph: No Bruising, No Bleeding,No Lymphadenopathy Endocrine : No Polyuria, No Polydipsia, No Temperature Intolerance [facility] Past Medical History Medical History Depression Anemia Hypertension Surgical History Hx of hysterectomy Family History Family History Maternal Aunt Breast cancer Social History Social History Alcohol intake: never Patient Tobacco Use Status: Never used Tobacco Advance Directives: No Do you have a plan to hurt others: No Plan Physical Exam ED Vital Signs: Vital Signs - 24 hr 02/22/25 03:41 Temperature 98.4 F Pulse Rate 76 Respiratory Rate 18 Blood Pressure 135/85 Pulse Oximetry 98 Oxygen Delivery Method Room Air BMI result Body Mass Index 40.3 Const Other: Appearance: Alert. Oriented X3. No acute distress. Eyes: Pupils equal, round and reactive to light. ENT: Pharynx normal. Neck: Normal inspection. Neck supple. No lymph nodes noted. No crepitus CVS: Normal heart rate and rhythm. Pulses normal. Normal S1 and S2 Respiratory: No respiratory distress. Bilateral rales, no crackles or wheezing, speaking in full sentences Abdomen: Soft and nontender. No rigidity. No distention. Skin: Skin warm and dry. Normal skin color. Normal skin turgor. Extremities: No lower extremity edema. No Lacerations. No Rash Neuro: Oriented X 3. No motor deficit. No sensory deficit. Moving all extremities. No slurred speech. CN 2 through 12 grossly intact Psych: calm, cooperative, normal affect Medical Decision Making Medical Decision Making [facility] Narrative: Patient's serology positive for influenza B My interpretation of x-ray: No infiltrates. Patient is within the window of treatment for treatment with Tamiflu. Patient agreeable to take the treatment Patient's oxygen saturation in the high 90s, no oxygen desaturations. Lab Data [facility] Lab Attestation statement: I reviewed the patient's lab results. 02/22/25 03:44 02/22/25 03:44 Labs: Lab Results 02/22/25 Range/Units 03:44 WBC 4.3 L (4.8-10.8) X10*3/uL RBC 4.05 L (4.20-5.50) X10*6/uL Hgb 11.0 L (12.0-16.0) g/dl Hct 33.3 L (37.0-47.0) % MCV 82.2 (80.0-98.0) fL MCH 27.2 (27.0-33.0) pg MCHC 33.0 (31.0-35.0) g/dl RDW 13.0 (11.0-16.0) % Plt Count 142 L (160-400) X10*3/uL MPV 10.4 (9.4-12.3) fL Immature Gran % (Auto) 0.7 H (0.0-0.4) % Neut % (Auto) 50.7 (45-73) % Lymph % (Auto) 31.6 (20-40) % Glascock % (Auto) 15.4 H (2-11) % Eos % (Auto) 1.4 (0-4) % Baso % (Auto) 0.2 (0-2) % Lymph # (Auto) 1.4 (1.2-4.9) X10*3/uL Glascock # (Auto) 0.7 (0.1-1.2) X10*3/uL Eos # (Auto) 0.1 (0.0-0.4) X10*3/uL Baso # (Auto) 0.0 (0.0-0.2) X10*3/uL Abs Immat Gran (auto) 0.03 (0.00-0.03) X10*3/uL Absolute Neuts (auto) 2.2 (2.0-8.3) x10*3/uL Absolute Nucleated RBC 0.000 (0.0-0.012) X10*3/uL Nucleated RBC % (auto) 0.0 (0.0-0.2) /100WBC Sodium 139 (135-145) mmol/L Potassium 3.7 (3.3-5.1) mmol/L Chloride 109 H (96-108) mmol/L Carbon Dioxide 24 (22-29) mmol/L Anion Gap 10 L (12-20) BUN 16 (9-16) mg/dL Creatinine 0.74 (0.5-1.4) mg/dL Estim Creat Clear Calc 130.4 Estimated GFR > 60 Random Glucose 89 (60-115) mg/dL Calcium 8.8 (8.4-10.2) mg/dL Total Bilirubin 0.2 (0.0-1.0) mg/dL AST 25 (5-31) U/L ALT 24 (0-31) U/L Alkaline Phosphatase 85 (39-117) U/L Total Protein 6.8 (6.5-8.0) g/dL Albumin 3.9 (3.5-5.0) g/dL Influenza Type A (PCR) NEGATIVE (Negative) Influenza Type B (PCR) POSITIVE A (Negative) RSV RNA Qual (PCR) NEGATIVE (Negative) SARS-CoV-2 RNA (RT-PCR) NEGATIVE (Negative) Independent Interpretation I performed an independent interpretation of an: Plain X-Ray Radiology Impression Discussion of test interpretation with radiology: I have reviewed the radiologist's reading. Radiologist Impression: No consolidation, pneumothorax, or effusion. Heart size is at the upper limits of normal. Impression: 1. No acute cardiopulmonary process. No focal pulmonary consolidation. Discharge Plan Discharge Clinical Impression: Acute viral bronchitis, Influenza B Patient Disposition: Home, Self-Care Instructions: Influenza (ED) Additional Instructions: Please follow-up with your primary care physician tomorrow. If you have any worsening or new symptoms, please return to the emergency room or call 911 Prescriptions: New ibuprofen 600 mg tablet 600 mg PO TID PRN (Reason: fever or pain) Qty: 20 0RF codeine-guaifenesin 10-100 mg/5 mL liquid 5 ml PO Q6H PRN (Reason: cough) Qty: 118 0RF oseltamivir [Tamiflu] 75 mg capsule 75 mg PO BID 5 Days Qty: 10 0RF No Action metronidazole 0.75 % (37.5mg/5 gram) gel 1 appful vaginal DAILY 5 Days Qty: 70 0RF losartan 50 mg tablet 50 mg PO DAILY Print Language: Tunisian
[2025-02-22 04:22] LABS: Alanine Aminotransferase 24 U/L (0-31); Albumin Level 3.9 g/dL (3.5-5.0); Alkaline Phosphatase 85 U/L (39-117); Anion Gap 10 (12-20); Aspartate Amino Transferase 25 U/L (5-31); Bilirubin Total 0.2 mg/dL (0.0-1.0); Blood Urea Nitrogen 16 mg/dL (9-16); Calcium 8.8 mg/dL (8.4-10.2); Carbon Dioxide 24 mmol/L (22-29); Chloride 109 mmol/L (96-108); Creatinine Clr Calc Pharmacy 130.4; Estimated Glomerular Filt Rate > 60; Glucose Random 89 mg/dL (60-115); Potassium 3.7 mmol/L (3.3-5.1); Sodium 139 mmol/L (135-145); Total Protein 6.8 g/dL (6.5-8.0)
[2025-02-22 04:27] LABS: Influenza A PCR NEGATIVE (Negative); Influenza B PCR POSITIVE (Negative); Resp Syncy Virus RNA Qual PCR NEGATIVE (Negative); SARS COV2 PCR INHOUSE NEGATIVE (Negative)
[2025-02-22 05:20] VITALS: BP 135/85; PULSE 76; RESP 18; TEMP 36.9; O2SAT 98
== END 2025-02-22 05:21 | disposition home or self-care (01) ==
PROVIDERS: Emergency Provider Emergency Medicine
DX: J10.1 Influenza due to other identified influenza virus with other respiratory manifestations (principal); R05.9 Cough, unspecified; Z03.818 Encounter for observation for suspected exposure to other biological agents ruled out
CPT/HCPCS: 0241U; 36415; 71045; 80053; 85025; 99282; 99283

== ENCOUNTER → 2025-02-22 04:10 | Outpatient (BNV) | payer OTHER, SELFPAY | PROVIDERS: Emergency Provider Emergency Medicine; Visit Provider Radiology Diagnostic Radiology | DX: R05.9 Cough, unspecified (principal) | CPT/HCPCS: 71045 ==

== ENCOUNTER 2025-03-23 13:40 | Outpatient (REF) | payer OTHER, SELFPAY ==
--- NOTE | ~2025-03-23 | XR_ITS ---
CLINICAL HISTORY: atraumatic L foot ankle pain x4d 3 view left foot Comparison: None Findings: No fractures or dislocations. Calcaneal enthesophytes. No ankle effusion. No radiopaque foreign body. IMPRESSION: 1. No acute findings. This document has been electronically signed by: Henok Chin MD on 03/23/2025 15:40:22
--- NOTE | ~2025-03-23 | XR_ITS ---
CLINICAL HISTORY: atraumatic L ankle pain x4d 3 view left ankle Comparison: None Findings: No acute fractures. Ankle mortise intact. Calcaneal enthesophytes. No ankle effusion. There is soft tissue edema of the ankle. No radiopaque foreign body. IMPRESSION: No acute fracture. This document has been electronically signed by: Henok Chin MD on 03/23/2025 15:37:27
--- OUTSIDE RECORDS SUMMARY | 2025-03-23 16:02 | XMS_ITS | Encounter Summary ---
Author Organization [facility] Address [address] [place] [address] [address] [place] [address] Care Team Providers Care Dental Services Director Name Role Phone Edelmira Jenni [facility] Primary Care Provider [phone] Encounter Details Date Type Department Care Team (Late st Contact Info) Description 10/30/2022 Orders Only [facility] [address] [place], [place] [id number] Jenni Hickey FNP [address] [place] [address] Social History Tobacco Use Types Packs/Day Years [...] on filedocumented in this encounter Care Teams Dental Services Director Relationship Specialty Start Date End Date Jneni Hickey FNP [address] [place] [address] PCP - General Family Medicine 08/28/21 documented as of this encounter
--- OUTSIDE RECORDS SUMMARY | 2025-03-23 16:02 | XMS_ITS | Encounter Summary ---
Author Organization [employer] Address [address] [facility] [address] [place] [address] Care Team Providers Care Casing Crew Name Role Phone Jenni Hickey [facility] Primary Care Provider [phone] Encounter Details Date Type Department Care Team (Late st Contact Info) Description 04/13/2023 Orders Only [facility] [address] [place], [place] [id number] Yolie Wang LPN Social History Tobacco Use [...] on filedocumented in this encounter Care Teams Casing Crew Relationship Specialty Start Date End Date Jenni Hickey FNP [address] [place] [id number] PCP - General Family Medicine 08/28/21 documented as of this encounter
--- OUTSIDE RECORDS SUMMARY | 2025-03-23 16:02 | XMS_ITS | Clinical Summary ---
Author Organization [facility] [employer] Address [address] [place] [address] Care Team Providers Care Building Architectural Designer Name Role Phone Edelmira [facility] Primary Care Provider [phone] Allergies No known active allergies Medications Diclofenac Sodium 1 % gelIndications: Arthralgia of both hands Apply topically to affected areas twice daily 150 g 1 025 Active losartan (Cozaar) 50 MG tabletIndicatio ns:Essential hypertension TAKE 1 TABLET BY MOUTH EVERY DAY 90 tablet 1 025 Active Tirzepatide-Kulwinder ght Management (Zepbound) 5 MG/0.5ML solution auto-injectorIn dications:Class 3 severe obesity due to excess calories with serious comorbidity and body mass index (BMI) of 40.0 to 44.9 in adult Inject 0.5 mL (5 mg) under the skin 1 (one) time per week. INJECT ONE PEN (= 5 MG) SUBCUTANEOUSLY ONCE A WEEK 2 mL 1 025 Active ibuprofen 800 MG tabletIndicatio ns:Acute foot pain, left,Acute left ankle pain Take 1 tablet (800 mg) by mouth every 8 (eight) hours. For 1 week and then take 1 tab as needed for pain 60 tablet 025 Active hydroCHLOROthia zide 12.5 MG tabletIndicatio ns:Essential hypertension Take 1 tablet (12.5 mg) by mouth Once per day. 90 tablet 3 025 2025 Active Tirzepatide-Kulwinder ght Management (Zepbound) 2.5 MG/0.5ML solution auto-injectorIn dications:Class 3 severe obesity due to excess calories with serious comorbidity and body mass index (BMI) of 40.0 to 44.9 in adult Inject 0.5 mL (2.5 mg) under the skin 1 (one) time per week. 2 mL 1 024 2024 Discontinued Active Problems Problem Noted [...] Seen by cards 04/2022 (Dr. [facility]) for f/u re 2016 echo that showed grade II diastolic dysfunction. Per visit note patient dx with stable mild cardiomegaly with preserved EF and advised to f/u PRN. Repeat echo 04/2022 unremarkable Obstructive sleep apnea 04/27/2023 Hx of total hysterectomy 04/27/2023 Overview (04/27/2023): S/p hysterectomy (fibroids) at [facility] 08/2020. 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 office Healthcare maintenance 04/27/2023 Overview (04/27/2023): Mammo: Routine Pap: s/p total hysterectomy. Followed by [facility]. Routine paps d/c C-scope: Routine age 45 BMD: Routine Vision: Referred to [facility] eye care 03/2023 Dental: Established with [facility] Essential hypertension 04/17/2023 Overview (04/27/2023): ?? [...] Encounters Date Type Department Care Team Description 03/23/2025 1:15 PM EDT Office Visit [facility] [address] [facility] [place] [address] Shara Alvarez ANP Acute foot pain, left (Primary Dx); Essential hypertension; Acute left ankle pain 03/23/2025 Travel 03/22/2025 Telephone [facility] [address] [address] Jenni Hickey FNP Nurse Triage 02/26/2025 Refill [facility] [address] [place] [address] Jenni Hickey FNP Class 3 severe obesity due to excess calories with serious comorbidity and body mass index (BMI) of 40.0 to 44.9 in adult ([facility]) 02/04/2025 Refill [facility] [address] [place] [address] EdelmiraJenni limon FNP Essential hypertension 01/29/2025 Orders Only GENERIC EXTERNAL DATA DEPARTMENT Provider, Generic External Data 01/03/2025 1:00 PM EST Office Visit [facility] ADULT DENTAL [address] [place] [address] Janine Parker Dental plaque (Primary Dx); Dental calculus; Encounter for dental examination 01/02/2025 1:45 PM EST Office Visit [facility] [address] [facility] [place] [address] [place]enni FNP Essential hypertension (Primary Dx); Class 3 severe obesity due to excess calories with serious comorbidity and body mass index (BMI) of 40.0 to 44.9 in adult (CMS/HCC); Arthralgia of both hands; Dietary counseling; Exercise counseling 01/02/2025 Travel 12/30/2024 Telephone [facility] [address] [place] [address] [place]Jenni FNP chart prep from Last 3 Months Immunizations Name Administration [...] Sign Reading Time Taken Comments Blood Pressure 142/88 03/23/2025 1:06 PM EDT Pulse 74 03/23/2025 1:06 PM EDT Temperature 36.2 ??C (97.2 ??F) 01/02/2025 1:58 PM ES T Respiratory Rate 16 03/23/2025 1:06 PM EDT Oxygen Saturation 99% 05/03/2024 9:38 AM EDT Inhaled Oxygen Concentration - - Weight 120 kg (265 lb) 03/23/2025 1:06 PM EDT Height 167.6 cm (5' 6 ) 03/23/2025 1:06 PM EDT Body Mass Index 42.77 03/23/2025 1:06 PM EDT Plan of Treatment Health Maintenance Due Date [...] 01/02/20 SDOH Screening 01/02/2026 01/02/2025 Tobacco Screening 03/23/2026 03/23/2025 Dental X-Ray: Full Mouth 03/18/2027 03/17/2024 Lipid Panel 03/01/2029 03/01/2024, 03/30, 09/09/2022, Additional history exists DTaP/Tdap/Td Vaccines (3 - Td or Tdap) 11/20/2031 11/20/2021, 04/08/2010 Zoster Vaccines (1 of 2) 2035 RSV Patients and Patients Aged 60 years or older (1 - 1-dose 75+ series) 2060 HIV Screening Completed 02/08/2025, 01/2022, 09/09/2022 Hepatitis C Screening Completed 02/08/2025 , 10/02/2022, 09/09/2022 Cervical Cancer Screening Discontinued HIB Vaccines Aged [...] Procedure Name Priority Date/Time Associated Diagnosis Comments XR FOOT 3+ VIEWS LEFT Routine 03/23/2025 3:40 PM EDT Acute foot pain, left XR ANKLE 3+ VIEWS LEFT Routine 03/23/2025 3:37 PM EDT Acute left ankle pain XR CHEST 1 VIEW Routine 02/22/2025 4:50 AM EDT COMPREHENSIVE METABOLIC PANEL Routine 02/22/2025 3:44 AM EDT CBC WITH AUTO DIFFERENTIAL Routine 02/22/2025 3:44 AM EDT SARS COV2/INFLUENZA A/B AND RSV RNA QL NAAT Routine 02/22/2025 3:44 AM EDT HIV 1/2 ANTIGEN/ANTIBODY, FOURTH GENERATION W/RFL Routine 02/08/2025 4:19 PM EDT HEPATITIS C AB W/REFL TO HCV RNA, QN, PCR Routine 02/08/2025 4:19 PM EDT HEPATITIS B CORE AB TOTAL Routine 02/08/2025 4:19 PM EDT SYPHILIS SCREEN Routine 02/08/2025 4:19 PM EDT BACTERIAL VAGINOSIS PANEL Routine 02/08/2025 2:58 PM EDT CHLAMYDIA/N. GONORRHOEAE RNA, TMA, UROGENITAL Routine 02/08/2025 2:58 PM EDT COMPREHENSIVE METABOLIC PANEL Routine 01/29/2025 4:16 AM [...] Routine 03/01/2024 11:47 AM EDT Essential hypertension from Last 3 Months or Most Recently Relevant to Health Maintenance Results * XR Foot 3+ Views Left (03/23/2025 3:40 PM EDT) Anatomical Region Laterality Modality Lower Extremities, Foot Left Radiogra phic Imaging 03/23/2025 3:40 PM EDT Narrative 03/23/2025 3:42 PM EDT ?[facility] ?[address] ?[place] [address] ?XRay Report ? Signed ? Patient: Colon,Ivis M ?MR#: [id number] ?? 288 ? : 1985 ?Acct:[id number] ? Age/Sex: 39 / F ?ADM Date: 03/23/25 ? Loc: HO.HHCX ? Attending Dr: Shara Alvarez NP ? Ordering Physician: SHARA ALVAREZ NP ?? Date of Service: 03/23/25 ?? Procedure(s): XR foot LT min 3V ?? Accession Number(s): [id number] ? cc: SHARA ALVAREZ NP ? CLINICAL HISTORY: atraumatic L foot ankle pain x4d ? 3 view left foot ? Comparison: None ? Findings: ?? No fractures or dislocations. ?? Calcaneal enthesophytes. ?? No ankle effusion. ?? No radiopaque foreign body. ? IMPRESSION: ?? 1. No acute findings. ? This document has been electronically signed by: Henok Chin MD on ?? 03/23/2025 15:40:22 ? Dictated By: ?Henok Chin MD ? Signed By: ?<Electronically signed by Henok Chin MD in OV> ? 03/23/25 1541 ? DD/ 1540 ? TD/TT: 03/23/25 1540 ? Carpenter Supervisor: ? Procedure Note Issac Saleh - 03/23/2025 [facility] [address] [facility] [place] [address] XRay Report Signed Patient: Ivis Bowen MMR#: [id number] 288 : 1985Acct:[id number] Age/Sex: 39 / FADM Date: 03/23/25 Loc: HO.HHCX Attending Dr: Shara Alvarez NP Ordering Physician: SHARA ALVAREZ NP Date of Service: 03/23/25 Procedure(s): XR foot LT min 3V Accession Number(s): [id number] cc: SHARA ALVAREZ NP CLINICAL HISTORY: atraumatic L foot ankle pain x4d 3 view left foot Comparison: None Findings: No fractures or dislocations. Calcaneal enthesophytes. No ankle effusion. No radiopaque foreign body. IMPRESSION: 1. No acute findings. This document has been electronically signed by: Henok Chin MD on 03/23/2025 15:40:22 Dictated By: Henok Chin MD Signed By: <Electronically signed by Henok Chin MD in OV> 03/23/25 1541 DD/ 1540 TD/TT: 03/23/25 1540 Carpenter Supervisor: Shara Alvarez ANP IMG XR PROCEDURES Final Result * XR Ankle 3+ Views Left (03/23/2025 3:37 PM EDT) Anatomical Region Laterality Modality Lower Extremities, Ankle Left Radiogr aphic Imaging 03/23/2025 3:37 PM EDT Narrative 03/23/2025 3:39 PM EDT ?[facility] ?[address] ?[place] [address] ?XRay Report ? Signed ? Patient: Colon,Ivis M ?MR#: [id number] ?? 288 ? : 1985 ?Acct:[id number] ? Age/Sex: 39 / F ?ADM Date: 04/24/25 ? Loc: HO.HHCX ? Attending Dr: Shara Alvarez NP ? Ordering Physician: SHARA ALVAREZ NP ?? Date of Service: 03/23/25 ?? Procedure(s): XR ankle LT min 3V ?? Accession Number(s): [id number] ? cc: SHARA ALVAREZ NP ? CLINICAL HISTORY: atraumatic L ankle pain x4d ? 3 view left ankle ? Comparison: None ? Findings: ?? No acute fractures. Ankle mortise intact. ?? Calcaneal enthesophytes. ?? No ankle effusion. There is soft tissue edema of the ankle. ?? No radiopaque foreign body. ? IMPRESSION: ?? No acute fracture. ? This document has been electronically signed by: Henok Chin MD on ?? 03/23/2025 15:37:27 ? Dictated By: ?Henok Chin MD ? Signed By: ?<Electronically signed by Henok Chin MD in OV> ? 03/23/25 1538 ? DD/ 1537 ? TD/TT: 03/23/257 ? Carpenter Supervisor: ? Procedure Note Donotarturoter, Image - 03/23/[address] [address] XRay Report Signed Patient: Ivis Bowen MMR#: [id number] 288 : 1985Acct:[id number] Age/Sex: 39 / FADM Date: 03/23/25 Loc: HO.HHCX Attending Dr: Shara Alvarez NP Ordering Physician: SHARA ALVAREZ NP Date of Service: 03/23/25 Procedure(s): XR ankle LT min 3V Accession Number(s): [id number] cc: SHARA ALVAREZ NP CLINICAL HISTORY: atraumatic L ankle pain x4d 3 view left ankle Comparison: None Findings: No acute fractures. Ankle mortise intact. Calcaneal enthesophytes. No ankle effusion. There is soft tissue edema of the ankle. No radiopaque foreign body. IMPRESSION: No acute fracture. This document has been electronically signed by: Henok Chin MD on 03/23/2025 15:37:27 Dictated By: Henok Chin MD Signed By: <Electronically signed by Henok Chin MD in OV> 03/23/258 DD/ 36 TD/TT: 03/23/251536 Carpenter Supervisor: us Shara Alvarez ANP IMG XR PROCEDURES Final Result * XR Chest 1 View (02/22/2025 4:50 AM EDT) Anatomical Region Laterality Modality Chest Radiographic Blossom ging 02/22/2025 4:50 AM EDT Narrative 02/22/2025 4:51 AM EDT ? [facility] ?[address] ?[place] [address] ?XRay Report ? Signed ? Patient: Colon,Ivis M ?MR#: [id number] ?? 288 ? : 1985 ?Acct:[id number] ? Age/Sex: 39 / F ?ADM Date: 02/22/25 ? Loc: HO.ED ? Attending Dr: ? Ordering Physician: Elisabet Lott MD ?? Date of Service: 02/22/25 ?? Procedure(s): XR chest 1V ?? Accession Number(s): [id number] ? cc: [facility]; Elisabet Lott MD ? CLINICAL HISTORY: coughing ? 1 view chest x-ray. ? Comparison: CR/NH/SR - XR CHEST 2V - 10/08/2023 10:44 PM EST ? Findings: ?? No consolidation, pneumothorax, or effusion. Heart size is at the upper ?? limits of normal. ? Impression: ?? 1. No acute cardiopulmonary process. No focal pulmonary consolidation. ? This document has been electronically signed by: Shaq Bui MD on ?? 02/22/2025 04:50:36 ? Dictated By: ?Shaq Bui MD ? Signed By: ?<Electronically signed by Shaq Bui MD in OV> ? 02/22/25 0451 ? DD/ 0450 ? TD/TT: 02/22/25 0450 ? Carpenter Supervisor: ? Procedure Note Issac Saleh - 02/22/[address] [address] XRay Report Signed Patient: Ivis Bowen MMR#: [id number] 288 : 1985Acct:[id number] Age/Sex: 39 / FADM Date: 02/22/25 Loc: HO.ED Attending Dr: Ordering Physician: Elisabet Lott MD Date of Service: 02/22/25 Procedure(s): XR chest 1V Accession Number(s): [id number] cc: [facility]; Elisabet Lott MD CLINICAL HISTORY: coughing 1 view chest x-ray. Comparison: CR/NH/SR - XR CHEST 2V - 10/08/2023 10:44 PM EST Findings: No consolidation, pneumothorax, or effusion. Heart size is at the upper limits of normal. Impression: 1. No acute cardiopulmonary process. No focal pulmonary consolidation. This document has been electronically signed by: Shaq Bui MD on 02/22/2025 04:50:36 Dictated By: Shaq Bui MD Signed By: <Electronically signed by Shaq Bui MD in OV> 02/22/25450 DD/ 9 TD/TT: 02/22/25449 Carpenter Supervisor: [facility] External Provider IMG XR PROCEDURES Edited Result - Final * (ABNORMAL) SARS-CoV-2 RNA, Influenza A/B, and RSV RNA, Ql NAAT (02/22/2025 3:44 AM EDT) Influenza A PCR NEGATIVE Negative [facility] Influenza B PCR POSITIVE(A) Negative [facility] Resp Syncy Virus RNA Qual PCR NEGATIVE Negative [facility] SARS COV2 PCR NEGATIVE Negative [facility] Comment:All test results mus t be correlated with clinical findings.Negative results do not preclude SARS-CoV2, influenza Avirus, influenza B virus and/or RSV infectionand should not be used as the sole basis for treatment orother patient management decisions. Negative results must becombined with clinical observations, patient history, andepidemiological information.This test has not been evaluated for monitoring treatment ofinfection.This test has been authorized by the FDA under an EmergencyUse Authorization (EUA) for use by authorized laboratories.Testing performed on the [employer] GeneXpert utilizingreal-time RT-PCR.All SARS CoV2 and positive influenza A/B results arereported to [facility]. 02/22/2025 3:44 AM EDT 02/22/2025 3:49 AM EDT Generic External Data Provider LAB MICROBIOLOGY - GENERAL ORDERABLES Final Result [facility] [address] [place] [phone] * (ABNORMAL) CBC auto differential (02/22/2025 3:44 AM EDT) Only the most recent of2 resultswithin the time period is included. White Blood Count 4.3(L) 4.8 - 10.8 X10*3/uL [facility] Red Blood Count 4.05(L) 4.20 - 5.50 X10*6/uL [facility] Hemoglobin 11.0(L) 12.0 - 16.0 g/dl [facility] Hematocrit 33.3(L) 37.0 - 47.0 % [facility] Mean Corpuscular Volume 82.2 80.0 - 98.0 fL [facility] Mean Corpuscular Hemoglobin 27.2 27.0 - 33.0 pg [facility] Mean Corpuscular HGB Conc 33.0 31.0 - 35.0 g/dl [facility] Red Cell Distribution Width 13.0 11.0 - 16.0 % [facility] Platelet Count 142(L) 160 - 400 X10*3/uL [facility] Mean Platelet Volume 10.4 9.4 - 12.3 fL [facility] Neutrophils Percent Auto 50.7 45 - 73 % [facility] Imm Gran Pct Auto 0.7(H) 0.0 - 0.4 % [facility] Lymphocytes Percent Auto 31.6 20 - 40 % [facility] Monocytes Percent Auto 15.4(H) 2 - 11 % [facility] Eosinophils Percent Auto 1.4 0 - 4 % [facility] Basophils Percent Auto 0.2 0 - 2 % [facility] NRBC Pct Auto 0.0 0.0 - 0.2 /100WBC [facility] Neutrophils Absolute Auto 2.2 2.0 - 8.3 x10*3/uL [facility] Imm Gran Abs Auto 0.03 0.00 - 0.03 X10*3/uL [facility] Lymphocytes Absolute Auto 1.4 1.2 - 4.9 X10*3/uL [facility] Monocytes Absolute Auto 0.7 0.1 - 1.2 X10*3/uL [facility] Eosinophils Absolute Auto 0.1 0.0 - 0.4 X10*3/uL [facility] Basophils Absolute Auto 0.0 0.0 - 0.2 X10*3/uL [facility] NRBC Abs Auto 0.000 0.0 - 0.012 X10*3/uL [facility] 02/22/2025 3:44 AM EDT 02/22/2025 3:49 AM EDT us Generic External Data Provider LAB BLOOD ORDERAB LES Final Result [facility] [address] [place] [address] [phone] * (ABNORMAL) Comprehensive Metabolic Panel (02/22/2025 3:44 AM EDT) Only the most recent of2 resultswithin the time period is included. Sodium 139 135 - 145 mmol/L [facility] Potassium 3.7 3.3 - 5.1 mmol/L [facility] Chloride 109(H) 96 - 108 mmol/L [facility] Carbon Dioxide 24 22 - 29 mmol/L [facility] Anion Gap 10(L) 12 - 20 [facility] Urea Nitrogen (BUN) 16 9 - 16 mg/dL [facility] Creatinine, Serum 0.74 0.5 - 1.4 mg/dL [facility] Creatinine Clr Calc Pharmacy 130.4 [facility] Comment:Provided height and weight: 167.64 cm,113.398 kg.eGFR (calculated from the MDRD study equation) and eCrCl(calculated from the Cockcroft-Gault equation) are based ondifferent parameters and may not yield comparable results.If eCrCl result is absurd, please check patient'sheight/weight. Estimated Glomerular Filt Rate >60 [facility] Comment:Chronic Kidney Disea se: Estimated GFR < 60 mL/min/1.53a1Kbzpnf Kidney Disease: Estimated GFR < 15 mL/min/1.73m2 Glucose 89 60 - 115 mg/dL [facility] Calcium 8.8 8.4 - 10.2 mg/dL [facility] Bilirubin, Total 0.2 0.0 - 1.0 mg/dL [facility] Aspartate Amino Transferase 25 5 - 31 U/L [facility] Alanine Aminotransferase 24 0 - 31 U/L [facility] Total Protein 6.8 6.5 - 8.0 g/dL [facility] Albumin Level 3.9 3.5 - 5.0 g/dL [facility] Alkaline Phosphatase 85 39 - 117 U/L [facility] 02/22/2025 3:44 AM EDT 02/22/2025 3:49 AM EDT Generic External Data Provider LAB BLOOD ORDERAB LES Final Result Performing Organization Address [facility] Phone Number [facility] [address] [place] [phone] * Syphilis Screen (02/08/2025 4:19 PM EDT) Syphilis Screen Nonreactive Nonreactive [facility] 02/08/2025 4:19 PM EDT 02/08/2025 4:19 PM EDT Generic External Data Provider LAB BLOOD ORDERAB LES Final Result Performing Organization Address [facility] [address] [place] [phone] * Hepatitis C Antibody with Reflex to HCV, RNA, Quantitative, Real-Time PCR (02/08/2025 4:19 PM EDT) Hepatitis C Antibody Nonreactive Nonreactive [facility] Comment:Antibodies to HCV no t detected; does not exclude early acuteHCV infection. 02/08/2025 4:19 PM EDT 02/08/2025 4:19 PM EDT us Generic External Data Provider LAB BLOOD ORDERAB LES Final Result Performing Organization Address City/[facility]/ZIP Co de Phone Number [facility] [address] [place] [phone] * Hepatitis B Core Antibody, Total (02/08/2025 4:19 PM EDT) Hepatitis B Core Antibody Nonreactive Nonreactive [facility] 02/08/2025 4:19 PM EDT 02/08/2025 4:19 PM EDT Generic External Data Provider LAB BLOOD ORDERAB LES Final Result Performing Organization Address [facility] Number [facility] [address] [place] [phone] * HIV-1/2 Antigen and Antibodies, Fourth Generation, with Reflexes (02/08/2025 4:19 PM EDT) HIV AB/AG Nonreactive Nonreactive [facility] Comment:HIV-1 p24 Ag and/or HIV-1/HIV-2 Ab not detected.A test result that is nonreactive does not exclude thepossibility of exposure to or infection with HIV-1 and/orHIV-2. Nonreactive results in this assay for individualswith prior exposure to HIV-1 and/or HIV-2 may be due toantigen and antibody levels that are below the limit ofdetection of this assay.[facility] HIV Ag/Ab Combo assay result andsupplemental assay results should be interpreted inconjunction with the patient's clinical presentation,history and other laboratory results. If the results areinconsistent with clinical evidence, additional testing issuggested to confirm the result. 02/08/2025 4:19 PM EDT 02/08/2025 4:19 PM EDT us Generic External Data Provider LAB BLOOD ORDERAB LES Final Result Performing Organization Address [facility]/ZIP Co de Phone Number [facility] [address] [place] [phone] * (ABNORMAL) Bacterial Vaginosis (02/08/2025 2:58 PM EDT) Pathologist [facility] [place] TRICHOMONAS VAGINALIS DETECTION BY PCR NOT DETECTED Not Detect [facility] BACTERIAL VAGINOSIS DETECTION BY PCR POSITIVE(A) Negative [facility] Comment:The BV organism targ ets of the Xpert Xpress MVP test can becommensal in women; Xpert Xpress MVP positive results forbacterial vaginosis should be considered in conjunction withother clinical and patient information to determine thedisease status. Organisms that are not detected by the XpertXpress MVP test have also been reported to be associatedwith BV and aerobic vaginitis.The Xpert Xpress MVP test performance has not been evaluatedin patients under the age of 14. SOPHIE GROUP DETECTION BY PCR NOT DETECTED Not Detect [facility] Sophie glab krusei PCR NOT DETECTED Not Detect [facility] 02/08/2025 2:58 PM EDT 02/08/2025 4:11 PM EDT us Generic External Data Provider LAB MICROBIOLOGY - GENERAL ORDERABLES Final Result [facility] [address] [place] [phone] * Chlamydia/N. Gonorrhoeae RNA, TMA, Urogenitial (02/08/2025 2:58 PM EDT) Pathologist [facility] [place] CT PCR NOT DETECTED Not Detect. [facility] Comment:A not detected test result does not exclude the possibilityof infection because test results can be affected byimproper specimen collection, concurrent antibiotic therapy,or the number of organisms in the specimen which may bebelow the sensitivity of the test. As with many diagnostictests, results from the Xpert CT/NG assay should beinterpreted in conjunction with other laboratory andclinical data available to the clinician.Xpert CT/NG performance has not been evaluated in patientsless than 14 years of age. The assay should not be used forthe evaluationof suspected sexual abuse or for other medico-legalindications. Additional testing is recommended in anycircumstance when false positive or false negative resultscould lead to adverse medical, social or psychologicalconsequences. NG PCR NOT DETECTED Not Detect. [facility] Comment:A not detected test result does not exclude the possibilityof infection because test results can be affected byimproper specimen collection, concurrent antibiotic therapy,or the number of organisms in the specimen which may bebelow the sensitivity of the test. As with many diagnostictests, results from the Xpert CT/NG assay should beinterpreted in conjunction with other laboratory andclinical data available to the clinician.Xpert CT/NG performance has not been evaluated in patientsless than 14 years of age. The assay should not be used forthe evaluationof suspected sexual abuse or for other medico-legalindications. Additional testing is recommended in anycircumstance when false positive or false negative resultscould lead to adverse medical, social or psychologicalconsequences. 02/08/2025 2:58 PM EDT 02/08/2025 4:11 PM EDT Narrative [facility] - 02/09/2025 5:32 AM EDT Vaginal us Generic External Data Provider LAB MICROBIOLOGY - GENERAL ORDERABLES Final Result Performing Organization Address City/State/[facility] Co de Phone Number [facility] [address] [place] [phone] * CT Abdomen Pelvis w/o Contrast (01/29/2025 4:12 AM EST) Anatomical Region Laterality Modality Body, Pelvis, Abdomen Computed T omography 01/29/2025 4:12 AM EST Narrative 01/29/2025 4:15 AM EST ? [facility] ?[address] ?[place] [address] ? CT Scan Report ? Signed ? Patient: Colon,Ivis M ?MR#: [id number] ?? 288 ? : 1985 ?Acct:[id number] ? Age/Sex: 39 / F ?ADM Date: /02/25 ? Loc: HO.ED ? Attending Dr: ? Ordering Physician: Conner Sierra MD ?? Date of Service: 01/29/25 ?? Procedure(s): CT abdomen pelvis wo IV con ?? Accession Number(s): [id number] ? cc: [facility]; Conner Sierra MD ? Report Number: ?? [id number]: Total DLP = ??886.00 mGy-cm ? CLINICAL HISTORY: Left lower quadrant pain? ??Diverticular ? CT abdomen and pelvis without contrast ? Comparison: CT - ABD PELVIS WO CONT [id number] - 03/08/17 21:41 EDT ? Findings: ?? [...] ?01/29/25 0414 ? DD/ 0412 ? TD/TT: 01/29/252 ? Carpenter Supervisor: ? Procedure Note Therese, Issac - 01/29/[address] [address] [address] Scan Report Signed Patient: Ivis Bowen MMR#: [id number] : 1985Acct:[id number] Age/Sex: 39 / FADM Date: 01/29/25 Loc: HO.ED Attending Dr: Ordering Physician: Conner Sierra MD Date of Service: 01/29/25 Procedure(s): CT abdomen pelvis wo IV con Accession Number(s): [id number] cc: [facility]; Conner Sierra MD Report Number: [id number]: Total DLP = 886.00 mGy-cm CLINICAL HISTORY: Left lower quadrant pain? Diverticular CT abdomen and pelvis without contrast Comparison: CT - ABD PELVIS WO CONT [id number] - 03/08/17 21:41 EDT Findings: Diffuse esophageal [...] MD in OV> 01/29/25 0414 DD/ TD/TT: 01/29/25411 Carpenter Supervisor: [facility] External Provider IMG CT PROCEDURES Final Result * Urinalysis, Complete, with Reflex to Culture (01/29/2025 1:57 AM EST) Color Urine Yellow [facility] Appearance Urine Clear [facility] PH 6.0 5.0 - 9.0 [facility] Glucose Urine UA Negative Negative mg/dL [facility] Urine Blood Negative Negative [facility] Specific [place] - Urine 1.010 1.005 - 1.025 [facility] Urine Protein Negative Neg-Trace mg/dL [facility] Urine Ketones Negative Negative mg/dL [facility] Nitrite Urine Negative Negative [facility] Leukocyte Esterase Urine Negative Negative [facility] RBC Urine 0-2 0 - 2 /HPF [facility] Urine WBC 0-5 0 - 5 /HPF [facility] Urine Squamous Epithelial Cell 0-2 0 - 2 /HPF [facility] Urine Bacteria None Seen None Seen [facility] Hyaline Casts, Urine 0-2 0 - 2 /LPF [facility] 01/29/2025 1:57 AM EST 01/29/2025 2:02 AM EST Narrative [facility] - 01/29/2025 2:21 AM EST [id number], Clean Catch us Generic External Data Provider LAB URINE ORDERAB LES Final Result Performing Organization Address City/[facility]/ZIP Co de Phone Number [facility] [address] [place] [address] [phone] * HCG, Qualitative, Urine (01/29/2025 1:57 AM EST) Urine NEGATIVE NEGATIVE [facility] Comment:This test was develo ped to detect early . Falsenegative results may occur after the 5th - 7th week ofpregnancy when using this test method. If clinicallyindicated, consider a serum hCG. 01/29/2025 1:57 AM EST 01/29/2025 2:02 AM EST us Generic External Data Provider LAB URINE ORDERAB LES Final Result Performing Organization Address [facility]/ZIP Co de Phone Number [facility] [address] [place] [address] [phone] * (ABNORMAL) Lipid Panel, Standard (03/01/2024 11:47 AM EDT) Triglycerides 215(H) <150 mg/dL [facility] Comment:Desirable Triglyceri de: less than 150 mg/dLBorderline High Triglyceride 150-199 mg/dLHigh Triglyceride: 200-499 mg/dLVery High Triglyceride: greater than or equal to 5OO mg/dL Cholesterol 201(H) <200 mg/dL [facility] Comment:Desirable Cholestero l: less than 200 mg/dLBorderline High Cholesterol: 200-239 mg/dLHigh Cholesterol: greater than 239 mg/dL LDL Cholesterol Calculated 96 <100 mg/dL [facility] Comment:Desirable LDL: less than 100 mg/dLNear Optimal/Above Optimal LDL: 110- 129 mg/dLBorderline High LDL: 130-159 mg/dLHigh LDL: 160-189 mg/dLVery High LDL: greater than or equal to 190 mg/dL HDL Cholesterol 62 >40 mg/dL [facility] Comment:Desirable HDL: great er than 40 mg/dL Note: This HDL assay may give artificially low results in patients with liver disease. Blood Venous blood specimen / Unknown 03/01/2024 11:47 AM EDT 03/01/2024 6:56 PM EDT [facility] [employer]ATE LAB BLOOD ORDERABLES Final Re sult [facility] [address] [place] [address] [phone] from Last 3 Months or Most Recently Relevant to Health Maintenance Insurance [facility] PARTIAL (MEDICAID) [facility] [place] Care Teams Building Architectural Designer Relationship Specialty Start Date End Date Jenni Hickey FNP [address] [place] [phone] PCP - General Family Medicine 08/28/21
--- OUTSIDE RECORDS SUMMARY | 2025-03-23 16:02 | XMS_ITS | Encounter Summary ---
Author Organization [employer] Address [address] 7t [place] [address] Care Team Providers Care Dietary Supervisor Name Role Phone [facility] Primary Care Provider [phone] Reason for Visit * Reason Onset Date Comments Nurse Triage 03/22/2025 Encounter Details Date Type Department Care Team ([facility] st Contact Info) Description 03/22/2025 Telephone [facility] [address] [place], [place] [phone] [facility] [address] [place] [address] Nurse Triage Social History Tobacco Use Types Packs/Day Years [...] encounter Miscellaneous Notes * Telephone Encounter - Paula Holland RN - 03/22/2025 11:32 AM EDT Triage call with [facility] Gear Generator Set Up Operator [place] [id number] Pt reports left ankle/foot pain for last 4 days. Pt reports foot is swollen and discolored looking and ankle hurts moderately. Pt denies injury/overuse. Tylenol/ibuprfen, icey hot cream and other such things have been used without effect. Pt denies rash, calf pain, fever. Pt is able to ambulate but with a limp. ASK apt with NABIL Pedraza 03/23/25 @ 115pm. Pt agrees with disposition and insurance is verified as active prior to booking. Pt is advised to keep ankle/foot elevated as much as possible and rest . Pt agrees. Multiple (2) protocols were used on this call. Disposition for Call: See in Office or Video Visit within 3 Days Protocol Used: Ankle Pain (Adult) Protocol-Based Disposition: See in Office or Video Visit within 3 Days Video visit not offered Positive Triage Question: * Moderate pain (e.g., interferes with normal activities, limping) and present > 3 days * All higher-acuity triage questions were negative Care Advice Discussed: * Pain Medicines * Reasons To Call Back - Moderate pain (such as limping) lasts over 3 days - Mild pain lasts over 7 days - You become worse * Use a Cold Pack for Pain * Use Heat After 48 Hours for Pain Protocol Used: Foot Pain (Adult) Protocol-Based Disposition: See in Office or Video Visit within 3 Days Video visit not offered Positive Triage Question: * Moderate pain (e.g., interferes with normal activities, limping) and present > 3 days * All higher-acuity triage questions were negative Care Advice Discussed: * Pain Medicines * Reasons To Call Back - Swelling, redness, or fever occur - Severe pain not relieved by pain medicine - Pain lasts over 7 days - You become worse * Telephone Encounter - Jelani August - 03/22/2025 10:25 AM EDT Symptom: Foot or Ankle Swelling Outcome: Schedule an urgent appointment (within 1 hour) or talk to a nurse or provider soon Reason: Trouble walking The caller accepted this outcome. Contact pt at [phone] documented in this encounter Plan of Treatment Not on file documented as of this encounter Visit Diagnoses Not on filedocumented in this encounter Care Teams Dietary Supervisor Relationship Specialty Start Date End Date Jenni Hickey FNP [address] [place] [phone] PCP - General Family Medicine 08/28/21 documented as of this encounter
--- OUTSIDE RECORDS SUMMARY | 2025-03-23 16:02 | XMS_ITS | Encounter Summary ---
Author Organization [employer] Address [address] [facility] 7t [place] [address] Care Team Providers Care Eyelet Riveter Name Role Phone [facility] Primary Care Provider [phone] Encounter Details Date Type Department Care Team (Latest Contact Info) Description 03/23/2025 Travel Social History Tobacco Use Types Packs/Day [...] on filedocumented in this encounter Care Teams Eyelet Riveter Relationship Specialty Start Date End Date Jenni Hickey FNP [address] [place] [address] PCP - General Family Medicine 08/28/21 documented as of this encounter
--- OUTSIDE RECORDS SUMMARY | 2025-03-23 16:02 | XMS_ITS | Encounter Summary ---
Author Organization [employer] [facility] Address [address] [place] [address] 7t [place] [address] Care Team Providers Care Market Development Executive Name Role Phone Jenni Hickey [facility] Primary Care Provider [phone] Encounter Details Date Type Department Care Team (Late st Contact Info) Description 10/30/2022 Orders Only [facility] MEDICINE [address] [place] [address] Jenni Hickey FNP [address] [place] [address] Witnessed episode of apnea (Primary Dx) Social [...] Primary documented in this encounter Care Teams Market Development Executive Relationship Specialty Start Date End Date Jenni Hickey FNP [address] [place] [address] PCP - General Family Medicine 08/28/21 documented as of this encounter
--- OUTSIDE RECORDS SUMMARY | 2025-03-23 16:02 | XMS_ITS | Encounter Summary ---
Author Organization [employer] [facility] Address [address] [place] [address] 7t [place] [address] Care Team Providers Care Technical Operations Manager Name Role Phone Jenni Hickey [facility] Primary Care Provider Encounter Details Date Type Department Care Team (Latest Contact Info) Description 03/03/[address] [facility] CONVERSIONS Dental, Provider, DDS Social History Tobacco [...] on filedocumented in this encounter Care Teams Technical Operations Manager Relationship Specialty Start Date End Date Jenni Hickey FNP [address] [place] [address] PCP - General Family Medicine 08/28/21 documented as of this encounter
--- OUTSIDE RECORDS SUMMARY | 2025-03-23 16:02 | XMS_ITS | Encounter Summary ---
Author Organization [employer] [facility] Address [address] [place] [address] 7t [place] [address] Care Team Providers Care Beef Lugger Name Role Phone Jenni Hickey [facility] Primary Care Provider [phone] Encounter Details Date Type Department Care Team (Latest Contact Info) Description 09/30/2019 Abstract [facility] CONVERSIONS Dental, Provider, DDS Social History [...] on filedocumented in this encounter Care Teams Beef Lugger Relationship Specialty Start Date End Date Jenni Hickey FNP [address] [place] [address] PCP - General Family Medicine 08/28/21 documented as of this encounter
--- OUTSIDE RECORDS SUMMARY | 2025-03-23 16:02 | XMS_ITS | Encounter Summary ---
Author Organization [employer] Address [address] [facility] [address]t [place] [address] Care Team Providers Care Document Preparer Microfilming Name Role Phone Edelmira [facility] Primary Care Provider [phone] Reason for Visit * Reason Comments Foot Pain Encounter Details Date Type Department Care Team ([facility] st Contact Info) Description 03/23/2025 1:15 PM EDT Office Visit [facility] MEDICINE [address] [place], [place] [phone] Shara Alvarez, ANP [address] [place] [address] Acute foot pain, left (Primary Dx); Essential hypertension; Acute left ankle pain Social History Tobacco Use Types Packs/Day Years [...] Pulse 74 03/23/2025 1:06 PM EDT Temperature - - Respiratory Rate 16 03/23/2025 1:06 PM EDT Oxygen Saturation - - Inhaled Oxygen Concentration - - Weight 120 kg (265 lb) 03/23/2025 1:06 PM EDT Height 167.6 cm (5' 6 ) 03/23/2025 1:06 PM EDT Body Mass Index 42.77 03/23/2025 1:06 PM EDT documented in this encounter Progress Notes * NABIL Santana - 03/23/2025 1:15 PM EDT Images from the original note were not included. Subjective Patient ID: Ivis Bowen is a 39 y.o. female who presents for Foot Pain. HPI PMH incl HTN, ELVIA Here today for sick visit ankle pain. Per triage Pt reports left ankle/foot pain for last 4 days. Pt reports foot is swollen and discolored looking and ankle hurts moderately. Pt denies injury/overuse. Tylenol/ibuprofen, icy hot cream and other such things have been used without effect. Pt denies rash, calf pain, fever. Pt is able to ambulate but with a limp. Left foot XR 07/2023: IMPRESSION: Plantar and dorsal calcaneal spurs, unchanged. History as above-she is taking ibuprofen 800 mg which does help with the pain. Swelling is better when she elevates her legs. Pain is mostly in the top of left foot and side of left foot and radiatesto anterior ankle. No known trauma. Works all day on her feet. Coincidentally, she ran out of hydrochlorothiazide 4 days ago. Rocael De La Cruz Lino provided Bulgarian interpretation. Review of Systems Constitutional: Negative for chills and fever. HENT: Negative for sore throat. Respiratory: Negative for cough and shortness of breath. Cardiovascular: Negative for chest pain. Gastrointestinal: Negative for constipation and diarrhea. Endocrine: Negative for polydipsia, polyphagia and polyuria. Genitourinary: Negative for dysuria. Musculoskeletal: Positive for arthralgias and joint swelling. Neurological: Negative for weakness and numbness. BP (!) 142/88 (BP Location: Right arm, Patient Position: Sitting, BP Cuff Size: Large adult) Pulse 74 Resp 16 Ht 5' 6 (1.676 m) Wt 265 lb (120 kg) BMI 42.77 kg/m?? Physical Exam Constitutional: General: She is not in acute distress. Appearance: Normal appearance. She is not ill-appearing. HENT: Head: Normocephalic and atraumatic. Eyes: Extraocular Movements: Extraocular movements intact. Cardiovascular: Rate and Rhythm: Normal rate and regular rhythm. Pulmonary: Effort: Pulmonary effort is normal. No accessory muscle usage or respiratory distress. Musculoskeletal: Legs: Comments: Tenderness in areas above with palpation. No pitting edema bilateral lower extremities. Ankles appear mostly symmetric with subtle swelling anterior left ankle Skin: Coloration: Skin is not pale. Findings: No bruising, erythema, lesion or rash. Neurological: Mental Status: She is alert and oriented to person, place, and time. Gait: Gait normal. Psychiatric: Mood and Affect: Mood normal. Behavior: Behavior normal. Assessment/Plan Diagnoses and all orders for this visit: Acute foot pain, left No shelly swelling on exam today-patient reports her left ankle is swollen however it appears symmetric with the right-she does appear to be retaining some water but nonpitting edema. She has been outof HCTZ for 4 days and so I suspect this is the cause of her edema. She has no SOB, CANNON, fever, chills, redness or calf pain. Distal pulses in bilateral lower extremities 1+. Recommend elevation, ibuprofen to continue while being mindful of blood pressures, refilled hydrochlorothiazide, check imaging as below. If blood pressure remains elevated while taking ibuprofen stop and switch to Tylenol - ibuprofen 800 MG tablet; Take 1 tablet (800 mg) by mouth every 8 (eight) hours. For 1 week and then take 1 tab as needed for pain - XR Foot 3+ Views Left; Future Essential hypertension Comments: Remained elevated on repeat 130/98. on losartan 50mg & hydrochlorothiazide. Has been out of HCTZ for 4 days. Will restart. Orders: - hydroCHLOROthiazide 12.5 MG tablet; Take 1 tablet (12.5 mg) by mouth Once per day. Acute left ankle pain - ibuprofen 800 MG tablet; Take 1 tablet (800 mg) by mouth every 8 (eight) hours. For 1 week and then take 1 tab as needed for pain - XR Ankle 3+ Views Left; Future documented in this encounter Plan of Treatment Not on file documented as of this encounter Procedures Procedure Name Priority Date/Time Associated Diagnosis Comments XR FOOT 3+ VIEWS LEFT Routine 03/23/2025 3:40 PM EDT Acute foot pain, left XR ANKLE 3+ VIEWS LEFT Routine 03/23/2025 3:37 PM EDT Acute left ankle pain documented in this encounter Results * XR Foot 3+ Views Left (03/23/2025 3:40 PM EDT) Anatomical Region Laterality Modality Lower Extremities, Foot Left Radiogra [facility] Imaging 03/23/2025 3:40 PM EDT Narrative 03/23/2025 3:42 PM EDT ?[facility] ?[address] ?[place] [address] ?XRay Report ? Signed ? Patient: Colon,Ivis M ?MR#: [id number] ?? 288 ? : 1985 ?Acct:[id number] ? Age/Sex: 39 / F ?ADM Date: 04/24/25 ? Loc: HO.HHCX ? Attending Dr: Shara Alvarez UNION REPRESENTATIVE ? Ordering Physician: SHARA ALVAREZ NP ?? Date of Service: 03/23/25 ?? Procedure(s): XR foot LT min 3V ?? Accession Number(s): [id number] ? cc: SHARA ALVAREZ NP ? CLINICAL [...] DD/ 1540 ? TD/TT: 03/23/25 1540 ? Runner On: ? Procedure Note Therese, Image - 03/23/[address] [address] XRay Report Signed Patient: Ivis Bowen MMR#: [id number] 288 : 1985Acct:[id number] Age/Sex: 39 / FADM Date: 03/23/25 Loc: HO.HHCX Attending Dr: Shara Alvarez NP Ordering Physician: SHARA ALVAREZ NP Date of Service: 03/23/25 Procedure(s): XR foot LT min 3V Accession Number(s): [id number] cc: SHARA ALVAREZ NP CLINICAL HISTORY: atraumatic [...] 03/23/25 1541 DD/ 1540 TD/TT: 03/23/25 1540 Runner On: us Shara Alvarez ANP IMG XR PROCEDURES Final Result * XR Ankle 3+ Views Left (03/23/2025 3:37 PM EDT) Anatomical Region Laterality Modality Lower Extremities, Ankle Left Radiogr aphic Imaging 03/23/2025 3:37 PM EDT Narrative 03/23/2025 3:39 PM EDT ?[facility] ?[address] ?[place] [address] ?XRay Report ? Signed ? Patient: Colon,Ivis M ?MR#: [id number] ?? 288 ? : 1985 ?Acct:[id number] ? Age/Sex: 39 / F ?ADM Date: 03/23/25 ? Loc: HO.HHCX ? Attending Dr: Shara Alvarez NP ? Ordering Physician: SHARA ALVAREZ NP ?? Date of Service: 03/23/25 ?? Procedure(s): XR ankle LT min 3V ?? Accession Number(s): [id number] ? cc: SHARA ALVAREZ NP ? CLINICAL [...] 03/23/25 1538 ? DD/ 1537 ? TD/TT: 03/23/251536 ? Runner On: ? Procedure Note Issac Saleh - 03/23/[address] [address] XRay Report Signed Patient: Ivis Bowen MMR#: [id number] 288 : 1985Acct:[id number] Age/Sex: 39 / FADM Date: 03/23/25 Loc: HO.HHCX Attending Dr: Shara Alvarez UNION REPRESENTATIVE Ordering Physician: SHARA ALVAREZ NP Date of Service: 03/23/25 Procedure(s): XR ankle LT min 3V Accession Number(s): [id number] cc: SHARA ALVAREZ NP CLINICAL HISTORY: atraumatic [...] by Henok Chin MD in OV> 03/23/25 1538 DD/ 1537 TD/TT: 03/23/25 153 Runner On: Shara Alvarez ANP IMG XR PROCEDURES Final Result documented in this encounter Visit Diagnoses Diagnosis Acute foot pain, left- Primary Essential hypertension Unspecified essential hypertension Acute left ankle pain documented in this encounter Care Teams Document Preparer Microfilming Relationship Specialty Start Date End Date Jenni Hickey FNP [address] [place] [address] PCP - General Family Medicine 08/28/21 documented as of this encounter
== END 2025-03-23 13:41 | disposition home or self-care (01) ==
LOC: HO.HHCX 13:40
PROVIDERS: Visit Provider Nurse Practitioner Primary Care
DX: M25.572 Pain in left ankle and joints of left foot (principal); M79.672 Pain in left foot
CPT/HCPCS: 73610; 73630

== ENCOUNTER → 2025-03-23 13:41 | Outpatient (BNV) | payer OTHER, SELFPAY | PROVIDERS: Visit Provider Nuclear Medicine | DX: M25.572 Pain in left ankle and joints of left foot (principal) | CPT/HCPCS: 73610; 73630 ==

== ENCOUNTER 2025-09-14 06:25 | Emergency (ER) | payer OTHER, SELFPAY ==
[2025-09-14 06:31] VITALS: BP 115/73; PULSE 96; RESP 13; TEMP 37.1; O2SAT 100; BMI 38.1
--- NOTE | 2025-09-14 07:10 | ED.GENADULT ---
HPI - General Adult General Chief complaint: General Medical Stated complaint: ear pain + throat pain + parks when urinating Time Seen by Provider: 09/14/25 06:51 Source: patient Mode of arrival: ambulatory Limitations: no limitations History of Present Illness ED Provider: DR. Jarvis HPI narrative: 40-year-old female came in for evaluation of sore throat, right ear pain, congestion, also complaining of dysuria, frequency urination, no hematuria. Exposed to a sick contacts at work, no recent travel, no recent hospitalization. Related Data Home Medications ?Medication ?Instructions ?Recorded ?Confirmed losartan 50 mg tablet 50 mg PO DAILY 10/02/22 10/02/22 Previous Rx's ?Medication ?Instructions ?Recorded metronidazole 0.75 % (37.5 mg/5 1 appful vaginal DAILY 5 days #70 02/09/25 gram) vaginal gel grams codeine 10 mg-guaifenesin 100 mg/5 5 ml PO Q6H PRN cough #118 mL 02/22/25 mL oral liquid ibuprofen 600 mg tablet 600 mg PO TID PRN fever or pain 02/22/25 #20 tabs oseltamivir 75 mg capsule (Tamiflu) 75 mg PO BID 5 days #10 caps 02/22/25 Allergies Allergy/AdvReac Type Severity Reaction Status Date / Time No Known Allergies Allergy Mild UNKNOWN Verified 09/14/25 06:36 Review of Systems Review of Systems: All other systems are reviewed and are negative Constitutional: Reports as per HPI and Reports no additional constitutional complaints Eyes: Reports as per HPI and Reports no additional eye complaints Reports system reviewed and no additional complaints, except as documented Cardiovascular: Reports as per HPI and Reports no additional cardiovascular complaints Respiratory: Reports as per HPI and Reports no additional respiratory complaints Gastrointestinal: Reports as per HPI and Reports no additional gastrointestinal complaints Genitourinary: Reports no additional female genitourinary complaints Musculoskeletal: Reports no additional musculoskeletal complaints Skin/Breast: Reports system reviewed and no additional complaints, except as docu Psychiatric: Reports no additional psychiatric complaints Endocrine: Reports no additional endocrine complaints Hematologic/Lymphatic: Reports no additional hematologic/lymphatic complaints Allergic/Immunologic: Reports no additional allergic/immunologic complaints Reports system reviewed and no additional complaints, except as documented and Reports Abnormal speech present [facility] Past Medical History Medical History Depression Anemia Hypertension Surgical History Hx of hysterectomy Family History Family History Maternal Aunt Breast cancer Social History Social History Alcohol intake: never Patient Tobacco Use Status: Never used Tobacco Advance Directives: No Advance Directives Information Provided: No Do you have a plan to hurt others: No Plan Physical Exam ED Vital Signs: Vital Signs - 24 hr 09/14/25 06:31 09/14/25 08:25 Temperature 98.7 F 98.3 F Pulse Rate 96 99 Respiratory Rate 13 14 Blood Pressure 115/73 131/88 Pulse Oximetry 100 100 Oxygen Delivery Method Room Air Room Air BMI result Body Mass Index 38.1 Vital signs have been reviewed and appear to be correct. Blood pressure elevated. Heart rate normal. Respiratory rate normal. Temperature normal. Oxygen saturation normal. Appearance: Alert. Oriented X3. No acute distress. Head: Normal external exam. Normocephalic. Atraumatic. No Wen signs noted. No raccoon eyes noted Eyes: PERRLA. EOMI. Conjunctiva and sclera normal. Eyelids normal. ENT: TM's Normal. Pharynx normal. Uvula midline. Moist mucous membranes. No trismus noted. No drooling noted. No muffled voice noted. Neck: Normal inspection. Neck supple. FROM. No adenopathy. Thyroid Normal. No meningeal signs. No neck mass noted. CVS: Normal heart rate and rhythm. Heart sound normal. No murmurs noted. Pulses normal throughout. Respiratory: No respiratory distress. Painless inspiration. Breath sounds normal. No wheezes/rales/rhonchi noted. Chest nontender. No accessory muscle usage noted or decreased air movement noted. Abdomen: Soft and nontender. Bowel sounds normal in all 4 quadrants. No distention noted. No organomegaly noted. No visible injury noted. Back: No CVA tenderness. Full range of motion noted. Skin: Skin warm and dry. Normal skin color. Normal skin turgor. No rashes/lesions/lacerations noted. Extremities: No lower extremity edema. Extremities exhibit normal range of motion. Extremities nontender. Neuro: Oriented X 3. Cranial nerve exam: II-XII are grossly intact No motor deficit. No sensory deficit. Reflexes normal. Course Reevaluation(s) Reevaluation #1: Patient is complaining of upper respiratory symptoms and UTI symptoms. Physical exam is revealed no acute findings. Patient was reassured and instructed to use ibuprofen if needed for pain. Time: 08:33 Medical Decision Making Differential Diagnosis Differential Diagnoses: The differential diagnosis associated with the presentation includes (UTI, , upper respiratory viral infection, otitis media, strep pharyngitis.) Admission/Observation Consideration of admission/observation: Escalation of care including admission/observation considered Lab Data MDM Lab Attestation statement: I reviewed the patient's lab results. Labs: Lab Results 09/14/25 09/14/25 Range/Units 07:01 07:25 Urine Color Yellow Urine Appearance Clear Urine pH 6.0 (5.0-9.0) Ur Specific [place] 1.025 (1.005-1.025) Urine Protein Negative (Neg-Trace) mg/dL Urine Glucose (UA) Negative (Negative) mg/dL Urine Ketones 15 (Negative) mg/dL Urine Blood Negative (Negative) Urine Nitrite Negative (Negative) Ur Leukocyte Esterase Negative (Negative) Urine Test NEGATIVE (NEGATIVE) Influenza Type A (PCR) NEGATIVE (Negative) Influenza Type B (PCR) NEGATIVE (Negative) RSV RNA Qual (PCR) NEGATIVE (Negative) SARS-CoV-2 RNA (RT-PCR) NEGATIVE (Negative) S. pyogenes GrpA EVA Negative (Negative) Discharge Plan Discharge Clinical Impression: Viral infection Patient Disposition: Home, Self-Care Instructions: Viral Syndrome (ED) Prescriptions: No Action metronidazole 0.75 % (37.5mg/5 gram) gel 1 appful vaginal DAILY 5 Days Qty: 70 0RF ibuprofen 600 mg tablet 600 mg PO TID PRN (Reason: fever or pain) Qty: 20 0RF codeine-guaifenesin 10-100 mg/5 mL liquid 5 ml PO Q6H PRN (Reason: cough) Qty: 118 0RF oseltamivir [Tamiflu] 75 mg capsule 75 mg PO BID 5 Days Qty: 10 0RF losartan 50 mg tablet 50 mg PO DAILY Referrals: [place] [Primary Care Provider, Medical] Print Language: [place]
--- OUTSIDE RECORDS SUMMARY | 2025-09-14 07:17 | XMS_ITS | Encounter Summary ---
Author Organization [employer] Address [address] [place] [address] [address] [address] Care Team Providers Care Product Safety Tester Name Role Phone Jenni Hickey [facility] Primary Care Provider [phone] Encounter Details Date Type Department Care Team (Latest Contact Info) Description 03/03/2022 Abstract [facility] CONVERSIONS Dental, Provider, DDS Social History [...] as of this encounter Plan of Treatment Upcoming Encounters Date Type Department Care Team (Late st Contact Info) Description 09/29/2025 1:15 PM EDT Office Visit [facility] MEDICINE [address] [place] [address] Jenni Hickey FNP [address] [place] [address] 02/23/2026 12:45 PM EDT Office Visit [facility] ADULT DENTAL [address] [place] [address] Franchesca Rios [address] [place] [address] documented as of this encounter Visit Diagnoses Not on filedocumented in this encounter Care Teams Product Safety Tester Relationship Specialty Start Date End Date Jenni Hickye FNP [address] [place] [address] PCP - General Family Medicine 08/28/21 documented as of this encounter
--- OUTSIDE RECORDS SUMMARY | 2025-09-14 07:17 | XMS_ITS | Encounter Summary ---
Author Organization [employer] Address [address] [place] [address] [address], [place] [address] Care Team Providers Care Hedis Analyst Name Role Phone [place] [facility] Primary Care Provider [phone] Encounter Details Date Type Department Care Team (Late st Contact Info) Description 10/30/2022 Orders Only [facility] MEDICINE [address] [place] [address] [place] [facility] [address] [place] [address] Witnessed episode of apnea (Primary Dx) Social [...] Description 09/29/2025 1:15 PM EDT Office Visit [facility] MEDICINE [address] [place] [address] [facility] [address] [place] [address] 02/23/2026 12:45 PM EDT Office Visit [facility] ADULT DENTAL [address] [place] [address] Franchesca Rios [address] [place] [address] documented as of this encounter Visit Diagnoses Diagnosis Witnessed episode of apnea- Primary documented in this encounter Care Teams Hedis Analyst Relationship Specialty Start Date End Date Jenni Hickey FNP [address] [place] [address] PCP - General Family Medicine 08/28/21 documented as of this encounter
--- OUTSIDE RECORDS SUMMARY | 2025-09-14 07:17 | XMS_ITS | Encounter Summary ---
Author Organization [employer] Address [address] [place] [address] [address] [place] [address] Care Team Providers Care Auto Body Worker Name Role Phone [place] [facility] Primary Care Provider [phone] Encounter Details Date Type Department Care Team (Late st Contact Info) Description 10/30/2022 Orders Only [facility] MEDICINE [address] [place] [address] [place] [facility] [address] [place] [address] Social History Tobacco Use Types Packs/Day Years [...] Description 09/29/2025 1:15 PM EDT Office Visit [facility] MEDICINE [address] [place] [address] [facility] [address] [place] [address] 02/23/2026 12:45 PM EDT Office Visit [facility] ADULT DENTAL [address] [place] [address] Franchesca Rios [address] [place] [address] documented as of this encounter Visit Diagnoses Not on filedocumented in this encounter Care Teams Auto Body Worker Relationship Specialty Start Date End Date Jenni Hickey FNP [address] [place] [phone] PCP - General Family Medicine 08/28/21 documented as of this encounter
--- OUTSIDE RECORDS SUMMARY | 2025-09-14 07:17 | XMS_ITS | Encounter Summary ---
Author Organization [employer] Address [address] [facility] [address] [place] [address] Care Team Providers Care Program Support Assistant Name Role Phone [place] [facility] Primary Care Provider [phone] Encounter Details Date Type Department Care Team (Late Contact Info) Description 04/13/2023 Orders Only [facility] [address] [place] [address] Yolie Wang LPN Social History Tobacco Use [...] Encounters Date Type Department Care Team (Late Contact Info) Description 09/29/2025 1:15 PM EDT Office Visit [facility] MEDICINE [address] [place] [address] Jenni Hickey FNP [address] [place] [address] 02/23/2026 12:45 PM EDT Office Visit [facility] ADULT DENTAL [address] [place] [address] Franchesca Rios [address] [place] [address] documented as of this encounter Visit Diagnoses Not on filedocumented in this encounter Care Teams Program Support Assistant Relationship Specialty Start Date End Date Jenni Hickey FNP [address] [place] [address] PCP - General Family Medicine 08/28/21 documented as of this encounter
--- OUTSIDE RECORDS SUMMARY | 2025-09-14 07:17 | XMS_ITS | Clinical Summary ---
Author Organization [employer] Address [address] [place] [address] Care Team Providers Care Assistant Produce Manager Name Role Phone Edelmira [facility] Primary Care Provider [phone] Allergies No known active allergies Medications Diclofenac Sodium 1 % gelIndications: Arthralgia of both hands Apply topically to affected areas twice daily 150 g 1 01/02/20 25 Active losartan (Cozaar) 50 MG tabletIndicatio ns:Essential hypertension TAKE 1 TABLET BY MOUTH EVERY DAY 90 tablet 1 02/07/20 25 Active ibuprofen 800 MG tabletIndicatio ns:Acute foot pain, left,Acute left ankle pain Take 1 tablet (800 mg) by mouth every 8 (eight) hours. For 1 week and then take 1 tab as needed for pain 60 tablet 03/23/20 25 Active hydroCHLOROthia zide 12.5 MG tabletIndicatio ns:Essential hypertension Take 1 tablet (12.5 mg) by mouth Once per day. 90 tablet 3 03/23/20 25 026 Active Tirzepatide-Kulwinder ght Management (Zepbound) 7.5 MG/0.5ML solution auto-injectorIn dications:Class 3 severe obesity due to excess calories with serious comorbidity and body mass index (BMI) of 40.0 to 44.9 in adult (HCC) Inject 0.5 mL (7.5 mg) under the skin 1 (one) time per week. 2 mL 08/18/20 25 Active SUMAtriptan (Imitrex) 25 MG tabletIndicatio ns:Migraine without aura and without status migrainosus, not intractable Take 1 tablet (25 mg) by mouth 1 (one) time if needed for migraine. May repeat dose once in 2 hours if no relief. Do not exceed 2 doses in 24 hours. 15 tablet 1 08/28/20 25 Active Zepbound 7.5 MG/0.5ML solution auto-injectorIn dications:Class 3 severe obesity due to excess calories with serious comorbidity and body mass index (BMI) of 40.0 to 44.9 in adult (HCC) ADMINISTER 7.5 MG UNDER THE SKIN EVERY 7 DAYS 2 mL 07/24/20 25 025 Discontinued(R eorder (will not trigger notification to Pharmacy)) Active Problems Problem Noted Date Diagnosed Date Dental calculus 08/22/2025 Incipient enamel dental caries 08/22/2025 Missing teeth, acquired 08/22/2025 Anemia 10/19/2023 10/19/2023 Chronic back pain 10/19/2023 10/19/2023 Spasm of cervical paraspinous muscle 08/11/2023 Assessment & Plan (08/11/2023 4:09 PM EDT): Use tylenol + Flexeril + Diclofenac gel Refer to PT If not improvement of sxs within 1 w , she can have Toradol inj 30 mg IM x 5d prn pain Cardiomegaly 04/27/2023 Overview (04/27/2023): Seen by cards 04/2022 (Dr. Curran at [facility]) for f/u re 2016 echo that showed grade II diastolic dysfunction. Per visit note patient dx with stable mild cardiomegaly with preserved EF and advised to f/u PRN. Repeat echo 04/2022 unremarkable Obstructive sleep apnea 04/27/2023 Hx of total hysterectomy 04/27/2023 Overview (04/27/2023): S/p hysterectomy (fibroids) at [facility] 08/2020. - Routine CRIMINAL ATTORNEY care through [facility] office Healthcare maintenance 04/27/2023 Overview (04/27/2023): Mammo: Routine Pap: s/p total hysterectomy. Followed by [facility]. Routine paps d/c C-scope: Routine age 45 BMD: Routine Vision: Referred to [facility] eye care 03/2023 Dental: Established with [facility] Essential hypertension 04/17/2023 Overview (04/27/2023): Losartan 50mg daily Hx of recurrent CP which has prompted [...] Assessment & Plan (04/27/2023 10:56 AM EDT): BP well controlled Continue current regimen Routine labs ordered History of total hysterectom y with bilateral salpingo-oophorectomy (BSO) 02/17/2022 Hypertensive disorder 02/14/2022 Encounters Date Type Department Care Team Description 08/28/2025 3:15 PM EDT Office Visit [facility] [address] [place], [place] [phone] [facility] Migraine without aura and without status migrainosus, not intractable (Primary Dx); Class 2 severe obesity due to excess calories with serious comorbidity and body mass index (BMI) of 39.0 to 39.9 in adult ([facility]); Encounter for screening mammogram for breast cancer; Encounter for immunization; Encounter for vaccination 08/28/2025 Travel 08/22/2025 8:00 AM EDT Office Visit [facility] [address] [place], [place] [phone] Franchesca Rios Dental calculus (Primary Dx); Incipient enamel dental caries; Missing teeth, acquired 08/17/2025 Refill [facility] [address] [place] [address] Lucia Waldron NP Class 3 severe obesity due to excess calories with serious comorbidity and body mass index (BMI) of 40.0 to 44.9 in adult 07/25/2025 Telephone [facility] [address] [place] [address] EdelmiraJenni limon FNP Prior Auth Prescription ([facility]: Zepbound) 07/22/2025 Refill [facility] [address] [place], [place] [phone] Caron Olivares MD Class 3 severe obesity due to excess calories with serious comorbidity and body mass index (BMI) of 40.0 to 44.9 in adult 06/21/2025 Refill [facility] [address], [place] [phone] BellmontJenni limon FNP Class 3 severe obesity due to excess calories with serious comorbidity and body mass index (BMI) of 40.0 to 44.9 in adult from Last 3 Months Immunizations Immunization Administration Dates Next Due DTaP 04/08/2010 HPV, Quadrivalent 04/01/2010 Influenza injectable quadriv alent preservative free 10/27/2022,11/20/2021,02/17/2017 Influenza, IIV3, injectable 12/21/2014 Influenza, seasonal, injecta ble, preservative free 08/28/2025 Pfizer Covid-19 Vaccine 12+ 08/28/2025 Tdap 11/20/2021 Social History Tobacco Use Types [...] Sign Reading Time Taken Comments Blood Pressure 108/68 08/28/2025 3:27 PM EDT Pulse 79 08/28/2025 3:27 PM EDT Temperature 36.9 C (98.5 F) 08/28/2025 3:27 PM EDT Respiratory Rate 16 08/28/2025 3:27 PM EDT Oxygen Saturation 99% 08/28/2025 3:27 PM EDT Inhaled Oxygen Concentration - - Weight 110 kg (243 lb 9.6 oz) 08/28/2025 3:27 PM EDT Height 167.6 cm (5' 6 ) 03/23/2025 1:06 PM EDT Body Mass Index 39.32 03/23/2025 1:06 PM EDT Plan of Treatment Upcoming Encounters Date Type Department Care Team (Late st Contact Info) Description 09/29/2025 1:15 PM EDT Office Visit [facility] [address] [place] [phone] Jenni Hickey FNP [address] [place] [address] 02/23/2026 12:45 PM EDT Office Visit [facility] [address] [place] [address] Franchesca Rios [address] [place] [address] Health Maintenance Due Date Last Done Comments Disability Screening 1985 Alcohol/Substance Use Screening 1997 Family Planning (PISQ) 2000 Hepatitis B Vaccines (1 of 3 - 19+ 3-dose series) 2004 Pap Smear 2006 HPV Vaccines (2 - 3-dose series) 04/29/2010 04/01/2010 HPV/Cotest 2015 Mammogram 2025 Depression Screening 01/02/2026 01/02/2025, 01/02/20 SDOH Screening 01/02/2026 01/02/2025 Dental Oral Exam 02/20/2026 08/22/2025, 02/2025, 03/17/2024 Dental Prophylaxis 02/20/2026 08/22/2025, 0 01/03/2025, 03/17/2024, Additional history exists Dental X-Ray: Bitewings 08/23/2026 08/22/2025, 03/17 Tobacco Screening 09/06/2026 09/06/2025 Dental X-Ray: Full Mouth 03/18/2027 03/17/2024 Lipid Panel 03/01/2029 03/01/2024, 03/30, 09/09/2022, Additional history exists DTaP/Tdap/Td Vaccines (3 - Td or Tdap) 11/20/2031 11/20/2021, 04/08/2010 Zoster Vaccines (1 of 2) 2035 RSV Patients and Patients Aged 60 years or older (1 - 1-dose 75+ series) 2060 HIV Screening Completed 02/08/2025, 11/0 01/2022, 09/09/2022 Hepatitis C Screening Completed 02/08/2025 , 10/02/2022, 09/09/2022 COVID-19 Vaccine Completed 08/28/2025, , 12/26/2021, Additional history exists Influenza Vaccine Completed 08/28/2025, , 11/20/2021, Additional history exists Cervical Cancer Screening Discontinued HIB Vaccines Aged Out No longer eligi ble based on patient's age to complete this topic Hepatitis A Vaccines Aged Out No long er eligible based on patient's age to complete this topic IPV Vaccines Aged Out No longer eligi ble based on patient's age to complete this topic Meningococcal B Vaccine Aged Out No l onger eligible based on patient's age to complete this topic Meningococcal Vaccine Aged Out No gianfranco elliot eligible based on patient's age to complete this topic Pneumococcal Vaccine: Pediatrics (0 to 5 Years) and At-Risk Patients (6 to 49) Years Aged Out No longer eligible based on patient's age to complete this topic RSV under 20 months Aged Out No longe r eligible based on patient's age to complete this topic Rotavirus Vaccines Aged Out No longer eligible based on patient's age to complete this topic Procedures Procedure Name Priority Date/Time Associated Diagnosis Comments PERIODIC ORAL EVALUATION - ESTABLISHED PATIENT Routine 08/22/2025 8:00 AM EDT INTRAORAL - PERIAPICAL EACH ADDITIONAL RADIOGRAPHIC IMAGE Routine 08/22/2025 8:00 AM EDT Dental calculus INTRAORAL - PERIAPICAL FIRST RADIOGRAPHIC IMAGE Routine 08/22/2025 8:00 AM EDT Dental calculus BITEWINGS - 4 RADIOGRAPHIC IMAGES Routine 08/22/2025 8:00 AM EDT Dental calculus ORAL HYGIENE INSTRUCTIONS Routine 08/22/2025 8:00 AM EDT Dental calculus CASE PRESENTATION, DETAILED AND EXTENSIVE TREATMENT PLANNING Routine 08/22/2025 8:00 AM EDT Dental calculus PROPHYLAXIS - ADULT Routine 08/22/2025 8 :00 AM EDT Dental calculus HEPATITIS C AB W/REFL TO HCV RNA, QN, PCR Routine 02/08/2025 4:19 PM EDT HIV 1/2 ANTIGEN/ANTIBODY, FOURTH GENERATION W/RFL Routine 02/08/2025 4:19 PM EDT INTRAORAL - COMPLETE SERIES OF RADIOGRAPHIC IMAGES Routine 03/17/2024 2:00 PM EDT Encounter for dental examination Dental calculus Teeth missing LIPID PANEL, STANDARD Routine 03/01/2024 11:47 AM EDT Essential hypertension from Last 3 Months or Most Recently Relevant to Health Maintenance Results * Hepatitis C Antibody with Reflex to HCV, RNA, Quantitative, Real-Time PCR (02/08/2025 4:19 PM EDT) Pathologist [facility] Hepatitis C Antibody Nonreactive Nonreactive [facility] Comment:Antibodies to HCV no t detected; does not exclude early acuteHCV infection. 02/08/2025 4:19 PM EDT 02/08/2025 4:19 PM EDT us Generic External Data Provider LAB BLOOD ORDERAB LES Final Result Performing Organization Address City/[facility]/ZIP Co de Phone Number [facility] [address] [place] [address] [phone] * HIV-1/2 Antigen and Antibodies, Fourth Generation, with Reflexes (02/08/2025 4:19 PM EDT) [facility] HIV AB/AG Nonreactive Nonreactive [facility] Comment:HIV-1 p24 Ag and/or HIV-1/HIV-2 Ab not detected.A test result that is nonreactive does not exclude thepossibility of exposure to or infection with HIV-1 and/orHIV-2. Nonreactive results in this assay for individualswith prior exposure to HIV-1 and/or HIV-2 may be due toantigen and antibody levels that are below the limit ofdetection of this assay.The [employer] HIV Ag/Ab Combo assay result andsupplemental assay results should be interpreted inconjunction with the patient's clinical presentation,history and other laboratory results. If the results areinconsistent with clinical evidence, additional testing issuggested to confirm the result. 02/08/2025 4:19 PM EDT 02/08/2025 4:19 PM EDT us Generic External Data Provider LAB BLOOD ORDERAB LES Final Result Performing Organization Address [facility]/ZIP Co de Phone Number [facility] [address] [place] [phone] * (ABNORMAL) Lipid Panel, Standard (03/01/2024 11:47 AM EDT) [facility] Triglycerides 215(H) <150 mg/dL [facility] Comment:Desirable Triglyceri de: less than 150 mg/dLBorderline High Triglyceride 150-199 mg/dLHigh Triglyceride: 200-499 mg/dLVery High Triglyceride: greater than or equal to 5OO mg/dL Cholesterol 201(H) <200 mg/dL [facility] Comment:Desirable Cholestero l: less than 200 mg/dLBorderline High Cholesterol: 200-239 mg/dLHigh Cholesterol: greater than 239 mg/dL LDL Cholesterol Calculated 96 <100 mg/dL [facility] Comment:Desirable LDL: less than 100 mg/dLNear Optimal/Above Optimal LDL: 110- 129 mg/dLBorderline High LDL: 130-159 mg/dLHigh LDL: 160-189 mg/dLVery High LDL: greater than or equal to 190 mg/dL HDL Cholesterol 62 >40 mg/dL [facility] Comment:Desirable HDL: great er than 40 mg/dL Note: This HDL assay may give artificially low results in patients with liver disease. Blood Venous blood specimen / Unknown 03/01/2024 11:47 AM EDT 03/01/2024 6:56 PM EDT [facility] REPAIR ARMATURE WINDER HELPER LAB BLOOD ORDERABLES Final Re sult [facility] [address] [place] [phone] from Last 3 Months or Most Recently Relevant to Health Maintenance Insurance [facility] MED [facility] - HSN PARTIAL (MEDICAID) [facility] Care Teams Assistant Produce Manager Relationship Specialty Start Date End Date [facility] Jenni, REPAIR ARMATURE WINDER HELPER [address] [place] [address] PCP - General Family Medicine 08/28/21
--- OUTSIDE RECORDS SUMMARY | 2025-09-14 07:17 | XMS_ITS | Encounter Summary ---
Author Organization [employer] Address [address] [place] [address] [address] [address] Care Team Providers Care Certified Orthoptist Name Role Phone Jenni Hickey [facility] Primary Care Provider [phone] Encounter Details Date Type Department Care Team (Latest Contact Info) Description 09/30/2019 Abstract [facility] Dental, Provider, DDS Social History [...] Description 09/29/2025 1:15 PM EDT Office Visit [facility] [address] [place] [address] Jenni Hickey FNP [address] [place] [address] 02/23/2026 12:45 PM EDT Office Visit [facility] ADULT [facility] [address] [place] [address] Adrián Riosaris [address] [place] [address] documented as of this encounter Visit Diagnoses Not on filedocumented in this encounter Care Teams Certified Orthoptist Relationship Specialty Start Date End Date Jenni Hickey FNP [address] [place] [address] PCP - General Family Medicine 08/28/21 documented as of this encounter
[2025-09-14 07:18] LABS: IDNOW Serial# 6674DD1D; Strep A Nucleic Acid Negative (Negative)
[2025-09-14 07:32] LABS: Appearance Urine Clear; Glucose Urine UA Negative (Negative); PH 6.0 (5.0-9.0); Specific Gravity - Urine 1.025 (1.005-1.025)
[2025-09-14 07:44] LABS: Resp Syncy Virus RNA Qual PCR NEGATIVE (Negative); SARS COV2 PCR INHOUSE NEGATIVE (Negative)
[2025-09-14 07:49] LABS: UPreg QC Valid YES
[2025-09-14 08:25] VITALS: BP 131/88; PULSE 99; RESP 14; TEMP 36.8; O2SAT 100
[2025-09-14 08:53] VITALS: BP 131/88; PULSE 99; RESP 14; TEMP 36.8; O2SAT 100
== END 2025-09-14 08:54 | disposition home or self-care (01) ==
PROVIDERS: Emergency Provider Emergency Medicine
DX: B34.9 Viral infection, unspecified (principal); H92.03 Otalgia, bilateral; R30.0 Dysuria; J02.9 Acute pharyngitis, unspecified; Z03.818 Encounter for observation for suspected exposure to other biological agents ruled out; Z79.899 Other long term (current) drug therapy
CPT/HCPCS: 81003; 81025; 87637; 87651; 99283; 99284

== ENCOUNTER 2025-10-17 14:48 | Outpatient (REF) | payer OTHER, SELFPAY | END 2025-10-17 14:49 | disposition home or self-care (01) | LOC: HO.MAMMO 14:48 | PROVIDERS: PCP Registered Nurse; Visit Provider Registered Nurse | DX: Z12.31 Encounter for screening mammogram for malignant neoplasm of breast (principal) | CPT/HCPCS: 77063; 77067 ==

== ENCOUNTER → 2025-10-17 15:00 | Outpatient (BNV) | payer OTHER, SELFPAY | PROVIDERS: PCP Registered Nurse; Visit Provider Internal Medicine | DX: Z12.31 Encounter for screening mammogram for malignant neoplasm of breast (principal) | CPT/HCPCS: 77063; 77067 ==